=== PATIENT | female | born 1925 | race Hispanic/Latino ===

== ENCOUNTER 2017-03-15 19:59 | Inpatient (IN) | payer MEDICARE, OTHER ==
[2017-03-15 19:59] VITALS: PULSE 1; BMI 29.1
--- NOTE | 2017-03-15 20:16 | C.PDOC ---
History Of Present Illness Patient presents to the emergency room with complaints of shortness of breath for 3 days. Patient also notes bilateral LE edema. Patient is speaking in complete sentences. Patient denies fever, chills, chest pain, nausea, vomiting, or any other complaints. Time Seen by Provider: 03/15/17 20:16 Chief Complaint (Nursing): Shortness Of Breath History Per: Patient History/Exam Limitations: no limitations Onset/Duration Of Symptoms: Days (3) Current Symptoms Are (Timing): Still Present Initiating Event: Other Quality: denies: "Pain" Exacerbating Factor(s): Exertion, Laying Flat Current Respiratory Medications: See Home Med List Severity: Moderate Pain Scale Rating Of: 4 Associated Symptoms: Ankle/Leg Swelling (Bilateral LE edema). denies: Fever, Chills, Chest Pain, Dizziness, Light-headedness Reports Recently: Seen In ED, Treated By A Physician, Hospitalized Recent travel outside of the [place]: No Additional History Per: Family Past Medical History Reviewed: Historical Data, Nursing Documentation, Vital Signs Vital Signs: Last Vital Signs Temp 98.2 F 03/15/17 20:11 Pulse 64 03/15/17 20:11 Resp 22 03/15/17 20:11 BP 142/84 03/15/17 20:11 Pulse Ox 94 L 03/15/17 21:41 - Medical History PMH: Arthritis, Atrial Fibrillation, CAD, Cardia Arrhythmia (afib), CHF, COPD, CVA, Diabetes, HTN, Hypercholesterolemia, Hypothyroidism, Pneumonia, Pulmonary Embolism, Rheumatoid Arthritis Denies: Alzheimer's Disease, Anemia, Anxiety, Asthma, Bipolar Disorder, Bronchitis, Crohn's Disease, Dementia, Depression, Diverticulitis, Emphysema, Fractures, Gastritis, Gall Bladder Disease, HIV, Hyperthyroidism, Kidney Stones , Migraine, Mitral Valve Prolapse, Multiple Sclerosis, Osteoporosis, Pancreatitis, Paranoia, Parkinson's Disease, Peripheral Edema, Post Traumatic Stress Disorder, Chronic Kidney Disease, Schizophrenia, Seizures, Sickle Cell Disease, Sexually Transmitted Disease, Sleep Apnea, TIA Surgical History: Appendectomy, Pacemaker (2015 dr.SHEMA HERRERA) Denies: CABG, Carotid Endarterectomy, Cholecystectomy, Coronary Stent, Tonsillectomy - [facility] Procedures EXERCISE TREATMENT OF MUSCULOSK WHOLE USING ASSIST EQUIPMENT (12/18/16) GAIT TRAINING/AMBULAT TREATMENT USING ASSIST EQUIPMENT (12/18/16) GROOMING/PERSONAL HYGIENE TREATMENT USING ASSIST EQUIPMENT (11/14/16) INSERTION OF INFUSION DEV INTO SUP VENA CAVA, PERC APPROACH (11/14/16) INTRODUCE OF OTH ANTI-INFECT INTO PERIPH VEIN, PERC APPROACH (12/18/16) INTRODUCE OTH ANTI-INFECT IN CENTRAL VEIN, PERC (11/14/16) REPAIR SCALP SKIN, EXTERNAL APPROACH (10/16/15) Family History: States: No Known Family Hx - Social History Hx Tobacco Use: No Hx Alcohol Use: No Hx Substance Use: No - Immunization History Hx Tetanus Toxoid Vaccination: No Hx Influenza Vaccination: No Hx Pneumococcal Vaccination: No Review Of Systems Constitutional: Negative for: Fever, Chills Cardiovascular: Positive for: Edema (Bilateral LE edema). Negative for: Chest Pain, Light Headedness Respiratory: Positive for: Shortness of Breath Gastrointestinal: Negative for: Nausea, Vomiting, Diarrhea Genitourinary: Negative for: Dysuria Musculoskeletal: Negative for: Back Pain Skin: Negative for: Rash, Lesions, Jaundice Neurological: Negative for: Headache, Dizziness Psych: Negative for: Anxiety Physical Exam - Physical Exam Appears: Non-toxic, Other (Speaking in complete sentences) Skin: Warm, Dry, No Rash Head: Normacephalic Oral Mucosa: Moist Neck: Normal ROM, No Midline Cervical Tenderness, No Paracervical Tenderness, Supple Chest: Symmetrical, No Tenderness, Other (Pacemaker on the left side of chest) Cardiovascular: Rhythm Regular Respiratory: Rales (Rales at bases), No Rhonchi, No Wheezing Gastrointestinal/Abdominal: Soft, No Tenderness, No Guarding, No Rebound Back: No CVA Tenderness, No Vertebral Tenderness Extremity: Normal ROM, No Tenderness, Pedal Edema, No Calf Tenderness, No Deformity Neurological/Psych: Oriented x3, Normal Speech, Normal Cognition Gait: With Assistance ED Course And Treatment - Laboratory Results Result Diagrams: 03/15/17 20:59 03/15/17 20:59 ECG: Interpreted By Me, Viewed By Me ECG Rhythm: Sinus Rhythm (67), Nonspecific Changes (dual paced rhytm) O2 Sat by Pulse Oximetry: 94 Pulse Ox Interpretation: Normal - Radiology CXR: Interpreted by Me, Viewed By Me CXR Interpretation: Yes: Cardiomegaly, Other (pacer left, mild vascular congestion, prominent r hilum not much changed from 12/29) Progress Note: cardiac work up Disposition Discussed With : Garry Torres Comment: accepted the pt on his servi ce and took over the care at 9:53 PM Doctor Will See Patient In The: ED Counseled Patient/Family Regarding: Studies Performed, Diagnosis - Disposition Disposition: HOSPITALIZED Disposition Time: 20:16 Condition: FAIR - POA Present On Arrival: Poor Glycemic Control - Clinical Impression Clinical Impression: Chronic congestive heart failure, Dyspnea - Scribe Statement The provider has reviewed the documentation as recorded by the Madyson Sanchez Provider Scribe Attestation: All medical record entries made by the Еленаibe were at my direction and personally dictated by me. I have reviewed the chart and agree that the record accurately reflects my personal performance of the history, physical exam, medical decision making, and the department course for this patient. I have also personally directed, reviewed, and agree with the discharge instructions and disposition. Decision To Admit - Pt Status Changed To: Hospital Disposition Of: Inpatient - Admit Certification Admit to Inpatient:: After my assessment, the patient will require hospitalization for at least two midnights. This is because of the severity of symptoms shown, intensity of services needed, and/or the medical risk in this patient being treated as an outpatient. - InPatient: Physician Admission Certification: I certify that this patient requires 2 or more midnights of care for the following reason:: After my assessment, the patient will require hospitalization for at least two midnights. This is because of the severity of symptoms shown, intensity of services needed, and/or the medical risk in this patient being treated as an outpatient. - . Bed Request Type: Telemetry Admitting Physician: Garry Torres Patient Diagnosis: Chronic congestive heart failure, Dyspnea
[2017-03-15 21:10] LABS: VENOUS BLOOD GAS BASE EXCESS 3.8 mmol/L (0.0-2.0); VENOUS BLOOD GAS PCO2 56 mmHg (40-60); VENOUS BLOOD PH 7.35 (7.32-7.43)
[2017-03-15 21:12] LABS: CHLORIDE 100 mmol/L (98-107); SODIUM 138 mmol/L (132-148)
[2017-03-15 21:13] LABS: POTASSIUM 4.2 mmol/L (3.6-5.2)
[2017-03-15 21:14] LABS: BASO % 0.4 % (0.0-2.0); BILIRUBIN,TOTAL 0.9 mg/dL (0.2-1.3); EOS # 0.1 K/uL (0.0-0.7); EOS % 1.3 % (0.0-4.0); GFR AFRICAN-AMERICAN > 60; HEMATOCRIT 35.4 % (34.0-47.0); LYMPH # 0.7 K/uL (1.0-4.3); LYMPH % 10.1 % (20.0-40.0); MEAN CELL VOLUME 91.3 fL (81.0-99.0); MEAN CORPUSCULAR HEMOGLOBIN 29.5 pg (27.0-31.0); MEAN CORPUSCULAR HGB CONC 32.3 g/dL (33.0-37.0); MEAN PLATELET VOLUME 8.5 fL (7.2-11.7); MONO # 0.4 K/uL (0.0-0.8); MONO % 6.1 % (0.0-10.0); NRBC % 0.1 % (0.0-2.0); RED CELL DISTRIBUTION WIDTH 15.2 % (11.5-14.5)
[2017-03-15 21:15] LABS: ALB/GLOB RATIO 1.4 (1.0-2.1); ALKALINE PHOSPHATASE 77 U/L (38-126); ALT/SGPT 28 U/L (9-52); AST/SGOT 29 U/L (14-36); BLOOD UREA NITROGEN 15 mg/dL (7-17); CALCIUM 8.8 mg/dl (8.6-10.4); CARBON DIOXIDE 29 mmol/L (22-30); GLUCOSE,RANDOM 133 mg/dL (65-105); MAGNESIUM 1.8 mg/dL (1.6-2.3)
[2017-03-15 22:37] LABS: RBC URINE 5 /hpf (0-3); URINE BACTERIA FEW (<OCC); URINE BILIRUBIN NEGATIVE (NEGATIVE); URINE BLOOD 1+ (NEGATIVE); URINE COLOR Yellow (YELLOW); URINE GLUCOSE (UA) NORMAL (Normal); URINE KETONE NEGATIVE (NEGATIVE); URINE PROTEIN NEGATIVE (NEGATIVE); URINE UROBILINOGEN NORMAL mg/dL (0.2-1.0); WBC URINE 26 /hpf (0-5)
--- NOTE | 2017-03-15 22:53 | CP.PCM.HP ---
<PasqualeRoman - Last Filed: 03/16/17 09:55> History of Present Illness - History of Present Illness History of Present Illness: CC: Productive Cough + Shortness of breath x 5 days. HPI: 89 year old female with extensive PMHx including recent Pneumonia, DM, CHF , and CVA - presents c/o productive cough and shortness of breath for the last 5 days. Patient admits she was admitted to for pneumonia last month and was later transferred to [facility] on vanco/ azactum. She feels like she has pneumonia again. She admits to increased SOB while lying flat and sleeps with an adjustable bed, typically maintaining a 30-45 degree angle while sleeping. She admits she takes a "water pill," but does not take it consistently, typically every other day because it causes frequent urination. Admits to chills , productive cough, lower extremity swelling, and chronically low appetite. Denies f/c, diaphoresis, chest pain, abdominal pain, n/v, d/c, or any additional complaints. Previously seen in 10/2016 and 12/2016 for similar complaints. Patient also spent time in ICU in 10/2016 for atrial flutter with long pauses on tele monitor with EKG changes. Dr. Chowdhury recommended evaluation by Dr. Roberson , electrophysiology, and patient received a pacemaker. PMHx: Pneumonia, DM, CVA, h/o PE, CAD, arthritis, hypercholesterolemia, hypothyroidism, RA, CHF Surgical Hx: cataract surgery, , pacemaker (10/2016) Meds- Metformin 500mg PO daily , Imdur, Nateglinide, Synthroid 100mcg PO daily, Plavix 75mg daily, Crestor 10mg HS, Metoprolol succ ER 50mg PO daily Allergies: Penicillin ("sometimes") Social Hx: Denies drugs, tobacco, and alcohol PMD: Dr. Peck Daughter: Alexus can be reached at [phone]. Present on Admission - Present on Admission Any Indicators Present on Admission: No Review of Systems - Hematologic/Lymphatic Additional comments: - Constitutional Constitutional: Chills. absent: Fever, Night Sweats, Weight Loss - EENT Eyes: absent: Change in Vision Ears: absent: Decreased Hearing - Cardiovascular Cardiovascular: absent: Chest Pain, Diaphoresis - Respiratory Respiratory: Cough, Chest Congestion. absent: Hemoptysis - Gastrointestinal Gastrointestinal: absent: Nausea, Vomiting - Genitourinary Genitourinary: absent: Hematuria - Musculoskeletal Musculoskeletal: absent: Joint Swelling -Lower extremity swelling (chronic). - Integumentary Integumentary: absent: Rash, Skin Ulcer - Neurological Neurological: absent: Dizziness, Focal Weakness - Psychiatric Psychiatric: absent: Confusion, Memory Loss - Endocrine Endocrine: absent: Change in Body Appearance - Hematologic/Lymphatic Hematologic: absent: Easy Bruising Past Patient History - Infectious Disease Hx of Infectious Diseases: None - Past Medical History & Family History Past Medical History?: Yes - Past Social History Smoking Status: Never Smoked - CARDIAC Hx Atrial Fibrillation: Yes Hx Cardia Arrhythmia: Yes (afib) Hx Congestive Heart Failure: Yes Hx Hypercholesterolemia: Yes Hx Hypertension: Yes Hx Mitral Valve Prolapse: No Hx Pacemaker: Yes (2015 dr.SHEMA HERRERA) Hx Peripheral Edema: No - PULMONARY Hx Asthma: No Hx Bronchitis: No Hx Chronic Obstructive Pulmonary Disease (COPD): Yes Hx Emphysema: No Hx Pneumonia: Yes Hx Pulmonary Embolism: Yes Hx Sleep Apnea: No - NEUROLOGICAL Hx Alzheimer's Disease: No Hx Dementia: No Hx Migraine: No Hx Multiple Sclerosis: No Hx Parkinson's Disease: No Hx Seizures: No Hx Transient Ischemic Attacks (TIA): No - HEENT Hx HEENT Problems: Yes Hx Blind: No Hx Cataracts: No Hx Deafness: No Hx Difficulty Chewing: No Hx Epistaxis: No Hx Glaucoma: Yes Hx Macular Degeneration: No Other/Comment: SURGERY GLAUCOMA BOTH EYES - RENAL Hx Chronic Kidney Disease: No Hx Kidney Stones: No - ENDOCRINE/METABOLIC Hx Hyperthyroidism: No Hx Hypothyroidism: Yes - HEMATOLOGICAL/ONCOLOGICAL Hx Anemia: No Hx Human Immunodeficiency Virus (HIV): No Hx Sickle Cell Disease: No - INTEGUMENTARY Hx Dermatological Problems: No Hx Basil Cell: No Hx Gao: No Hx Cellulitis: No Hx Eczema: No Hx Melanoma: No Hx Psoriasis: No Hx Squamous Cell: No - MUSCULOSKELETAL/RHEUMATOLOGICAL Hx Arthritis: Yes Hx Fractures: No Hx Osteoporosis: No Hx Rheumatoid Arthritis: Yes - GASTROINTESTINAL Hx Crohn's Disease: No Hx Diverticulitis: No Hx Gall Bladder Disease: No Hx Gastritis: No Hx Pancreatitis: No - GENITOURINARY/GYNECOLOGICAL Hx Sexually Transmitted Disorders: No - PSYCHIATRIC Hx Anxiety: No Hx Bipolar Disorder: No Hx Depression: No Hx Paranoia: No Hx Post Traumatic Stress Disorder: No Hx Schizophrenia: No Hx Substance Use: No - SURGICAL HISTORY Hx Appendectomy: Yes Hx Carotid Endarterectomy: No Hx Cholecystectomy: No Hx Coronary Artery Bypass Graft: No Hx Coronary Stent: No Hx Tonsillectomy: No - ANESTHESIA Hx Anesthesia: Yes Hx Anesthesia Reactions: No Hx Malignant Hyperthermia: No Meds Allergies/Adverse Reactions: Allergies Allergy/AdvReac Type Severity Reaction Status Date / Time Penicillins Allergy RASH Verified 03/19/17 18:50 Physical Exam - Additional Findings Additional findings: - Constitutional Appears: Non-toxic - Head Exam Head Exam: ATRAUMATIC, NORMOCEPHALIC - Eye Exam Eye Exam: EOMI, Normal appearance. absent: Scleral icterus - ENT Exam ENT Exam: Mucous Membranes Moist - Neck Exam Neck exam: Negative for: Lymphadenopathy, Tenderness - Respiratory Exam Respiratory Exam: Rhonchi (b/l diffuse). absent: Respiratory Distress - Cardiovascular Exam Cardiovascular Exam: Irregular Rhythm, +S1, +S2 - GI/Abdominal Exam GI & Abdominal Exam: Soft. absent: Tenderness - Extremities Exam Extremities exam: Positive for: pedal edema (2+ pitting). Negative for: calf tenderness - Back Exam Back exam: absent: CVA tenderness (L), CVA tenderness (R) - Neurological Exam Neurological exam: Alert, CN II-XII Intact, Oriented x3 - Psychiatric Exam Psychiatric exam: Normal Affect, Normal Mood. Results - Vital Signs Recent Vital Signs: Last Vital Signs Temp 98.2 F 03/15/17 22:45 Pulse 68 03/15/17 22:45 Resp 20 03/15/17 22:45 BP 132/66 03/15/17 22:45 Pulse Ox 96 03/15/17 22:45 - Labs Result Diagrams: 03/16/17 06:20 03/16/17 06:20 Assessment & Plan - Assessment and Plan (Free Text) Assessment: Pneumonia -suspected -recently had pneumonia 1 month ago, she does not feel as if it completely resolved. -CXR: Cardiomegaly, Other (pacer left, mild vascular congestion, prominent r hilum not much changed from 12/29). See full report. -Avelox 400mg IVPB Q24H DIMA -Mucinex 600 mg PO BID DIMA for cough. -Albuterol 1.25 mg INH QID DIMA -Budesonide 0.5 mg INH RQ12 DIMA -Singulair 10 mg PO HS DIMA Shortness of Breath -O2 NC 2L PRN -O2 sat 94% on admission. -Ddimer 541 --> f/u CT Angio to r/o PE. -ROSALINDA negative x2. f/u 3rd ROSALINDA -EKG: AV dual paced rhythm with prolonged AV and PACs. f/u repeat EKG. Atrial Fibrillation -s/p pacemaker with Dr. Roberson' team. -EKG: AV dual paced rhythm with prolonged AV and PACs. f/u repeat EKG. -Amiodarone HCl 200 mg PO DAILY DIMA CHF -diffuse rhonchi on exam. Feels extremely SOB when lies flat. -prior echo: Echo mild to moderate left ventricular hypertrophy, systolic function is normal EF 70%, Grade II pseudonormal filling dynamica, trace aortic regurg, mid MR, mild-moderate pulmonary hypertension -Lasix 40mg IVP qd Diabetes -Glucose 133 on admission -Novolog ISS - low dose (to start at noon) -Metformin HCl 500 mg PO BID DIMA -Nateglinide (Starlix) 60 mg PO ACTID DIMA Hx Hyperlipidemia -Crestor 10 mg PO HS DIMA Hx HTN -BP 132/66 on admission -Bisoprolol Fumarate (Zebeta) 2.5 mg PO DAILY DIMA -Hydralazine HCl (Apresoline) 25 mg PO DAILY DIMA Hx CVA -Plavix 75 mg PO DAILY DIMA Hypothyroidism -Synthroid 100 mcg PO DAILY@0630 DIMA Prophylaxis -Heparin 5,000 units SC Q12 DIMA -Pneumovax [address] Torres. - Date & Time Date: 03/15/17 Time: 23:00 <Garry Torres P - Last Filed: 03/20/17 05:50> Results - Vital Signs Recent Vital Signs: Last Vital Signs Temp 99.1 F 03/19/17 15:31 Pulse 65 03/19/17 15:31 Resp 20 03/19/17 15:31 BP 111/62 03/19/17 17:04 Pulse Ox 95 03/19/17 15:31 - Labs Result Diagrams: 03/19/17 06:20 03/19/17 06:20 Labs: Laboratory Results - last 24 hr 03/19/17 03/19/17 03/19/17 06:13 06:20 06:20 WBC 3.5 L RBC 3.92 Hgb 11.7 Hct 35.5 MCV 90.6 MCH 29.8 MCHC 32.9 L RDW 15.2 H Plt Count 201 MPV 8.5 Neut % (Auto) 41.8 L Lymph % (Auto) 39.6 [place] % (Auto) 12.6 H Eos % (Auto) 5.1 H Baso % (Auto) 0.9 Neut # 1.5 L Lymph # 1.4 [place] # 0.4 Eos # 0.2 Baso # 0.0 Sodium 138 Potassium 3.7 Chloride 95 L Carbon Dioxide 33 H Anion Gap 14 BUN 20 H Creatinine 1.1 Est GFR ( Amer) 57 Est GFR (Non-Af Amer) 47 POC Glucose (mg/dL) 126 H Random Glucose 117 H Calcium 8.5 L Phosphorus 4.5 Magnesium 1.8 Total Bilirubin 0.4 AST 26 ALT 31 Alkaline Phosphatase 68 Troponin I NT-Pro-B Natriuret Pep Total Protein 7.0 Albumin 4.0 Globulin 3.0 Albumin/Globulin Ratio 1.3 03/19/17 03/19/17 03/19/17 11:30 11:38 16:21 WBC RBC Hgb Hct MCV MCH MCHC RDW Plt Count MPV Neut % (Auto) Lymph % (Auto) [place] % (Auto) Eos % (Auto) Baso % (Auto) Neut # Lymph # [place] # Eos # Baso # Sodium Potassium Chloride Carbon Dioxide Anion Gap BUN Creatinine Est GFR ( Amer) Est GFR (Non-Af Amer) POC Glucose (mg/dL) 164 H 151 H Random Glucose Calcium Phosphorus Magnesium Total Bilirubin AST ALT Alkaline Phosphatase Troponin I < 0.0120 NT-Pro-B Natriuret Pep 140 Total Protein Albumin Globulin Albumin/Globulin Ratio Attending/Attestation - Attestation I have personally seen and examined this patient.: Yes I have fully participated in the care of the patient.: Yes I have reviewed all pertinent clinical information: Yes
[2017-03-15 23:10] LABS: URINE LEUKOCYTE ESTERASE 2+ Leu/uL (Negative)
[2017-03-16] MEDS: Albuterol 0.042% Inhal Sol (1.25 mg/3 mL) UD INH SCH ×3 (03:35→19:24)
[2017-03-16] MEDS: Levothyroxine 100 MCG TAB PO SCH (06:15)
[2017-03-16 06:28] LABS: BASO # 0.1 K/uL (0.0-0.2); BASO % 0.7 % (0.0-2.0); EOS # 0.1 K/uL (0.0-0.7); EOS % 0.7 % (0.0-4.0); HEMATOCRIT 36.7 % (34.0-47.0); LYMPH # 0.8 K/uL (1.0-4.3); LYMPH % 10.5 % (20.0-40.0); MEAN CELL VOLUME 90.6 fL (81.0-99.0); MEAN CORPUSCULAR HEMOGLOBIN 29.9 pg (27.0-31.0); MEAN PLATELET VOLUME 8.3 fL (7.2-11.7); MONO # 0.5 K/uL (0.0-0.8); MONO % 6.2 % (0.0-10.0); RED CELL DISTRIBUTION WIDTH 15.3 % (11.5-14.5); WHITE BLOOD COUNT 7.8 K/uL (4.8-10.8)
[2017-03-16 06:38] LABS: CHLORIDE 92 mmol/L (98-107); SODIUM 139 mmol/L (132-148)
[2017-03-16 06:39] LABS: POTASSIUM 3.3 mmol/L (3.6-5.2)
[2017-03-16 06:40] LABS: GFR AFRICAN-AMERICAN > 60
[2017-03-16 06:41] LABS: ALB/GLOB RATIO 1.4 (1.0-2.1); ALKALINE PHOSPHATASE 89 U/L (38-126); ALT/SGPT 29 U/L (9-52); AST/SGOT 30 U/L (14-36); BILIRUBIN,TOTAL 1.2 mg/dL (0.2-1.3); BLOOD UREA NITROGEN 13 mg/dL (7-17); CALCIUM 8.6 mg/dl (8.6-10.4); CARBON DIOXIDE 34 mmol/L (22-30); GLUCOSE,RANDOM 141 mg/dL (65-105); MAGNESIUM 1.6 mg/dL (1.6-2.3); PHOSPHOROUS 3.7 mg/dL (2.5-4.5); TOTAL PROTEIN 7.5 g/dL (6.3-8.3)
[2017-03-16] MEDS: Budesonide 0.5 mg/2 ml Inhal Susp UD INH SCH ×2 (07:26→19:24)
[2017-03-16] MEDS ORDERED: Iodixanol 320 MG/ML 100 ML BOTTLE IV ONE (07:44)
--- NOTE | 2017-03-16 08:48 | RAD ---
PROCEDURE: CHEST RADIOGRAPH, 1 VIEW HISTORY: SOB COMPARISON: Comparison is made to the previous study dated 12/13/2016 FINDINGS: LUNGS: Mild pulmonary vascular congestion. PLEURA: Blunting of the right costophrenic angle CARDIOVASCULAR: Cardiomegaly is again noted. Left-sided pacemaker is seen in place. OSSEOUS STRUCTURES: No significant abnormalities. VISUALIZED UPPER ABDOMEN: Normal. OTHER FINDINGS: None. IMPRESSION: Cardiomegaly and mild pulmonary vascular congestion.
--- NOTE | 2017-03-16 09:18 | CT ---
PROCEDURE: CT Chest with contrast (Pulmonary Angiogram) HISTORY: +DDimer, SOB COMPARISON: Comparison is made to the previous study dated 10/29/2016 TECHNIQUE: Axial computed tomography images were obtained of the chest in the pulmonary arterial phase of enhancement. Coronal and sagittal reformatted images were created and reviewed. Intravenous contrast dose: 100 mL of Visipaque Radiation dose: Total exam DLP = 435.5 mGy-cm. This CT exam was performed using one or more of the following dose reduction techniques: Automated exposure control, adjustment of the mA and/or kV according to patient size, and/or use of iterative reconstruction technique. FINDINGS: PULMONARY ARTERIES: Unremarkable. No pulmonary embolism. AORTA: No acute findings. No thoracic aortic aneurysm. LUNGS: Small opacity is seen at the lingula may represent pneumonia or atelectasis. There is also small opacity seen at the left lung base. Mild emphysematous changes are also noted. PLEURAL SPACES: Unremarkable. No effusion or pneuomothorax. HEART: The heart is moderately enlarged. LYMPH NODES: No lymphadenopathy. BONES, CHEST WALL: Unremarkable. No fracture or destructive lesion OTHER FINDINGS: Gallstones are seen without evidence of acute cholecystitis. IMPRESSION: No evidence of pulmonary embolus. Airspace consolidation and small infiltrates seen at the lingula may represent a pneumonia or atelectasis. The possibility of neoplasm is less likely. Focal opacity at the left lung base likely atelectasis. Cardiomegaly. Mild emphysema and pulmonary vascular congestion.
[2017-03-16] MEDS: guaiFENesin 600 mg ER Tab PO SCH ×2 (09:24→17:26)
[2017-03-16] MEDS: Moxifloxacin IV 400mg/250ml NS 400 MG/250 ML BAG IVPB SCH (09:31)
[2017-03-16] MEDS ORDERED: Potassium Chloride 20 mEq ER Tab PO ONE (10:02)
[2017-03-16] MEDS: (Novolog) Insulin Aspart, Recombinant 100 u/ml 10 ml vial SC SCH ×3 (12:09→22:14)
--- NOTE | 2017-03-16 17:07 | CARD ---
APPROVED REPORT EKG Measurement Heart [id number] ND 214P [id number] <Conclusion> AV dual-paced rhythm with prolonged AV conduction with premature atrial complexes with aberrant conduction Abnormal ECG
--- NOTE | 2017-03-16 18:21 | CP.PCM.PN ---
<Negro Reid - Last Filed: 03/16/17 18:17> Subjective - Date & Time of Evaluation Date of Evaluation: 03/16/17 Time of Evaluation: 18:17 - Subjective Subjective: PGY-1 Medicine Progress Note for Dr. Henriquez Patient seen and examined at bedside. No acute event overnight. Patient resting in bed comfortably. Patient still complaining of sob and cough. She states that the sputum is green in color. Patient still has decreased appetite. Patient was recently treated for Pneumnia and was discharged to [facility] for IV antibiotic therapy. Denies fever/chills, palpitations, abd pain, n/v/d. Objective - Vital Signs/Intake and Output Vital Signs (last 24 hours): Temp Pulse Resp BP Pulse Ox 99.5 F 70 20 120/59 L 96 03/16/17 17:24 03/16/17 15:45 03/16/17 15:45 03/16/17 17:27 03/16/17 15:45 Intake and Output: 03/16/17 03/16/17 06:59 18:59 Intake Total 850 Balance 850 - Medications Medications: Current Medications Albuterol Sulfate (Albuterol 0.042% Inhal Lidia (1.25mg/3ml) Ud) 1.25 mg INH RQID [facility] Amiodarone HCl (Cordarone) 200 mg PO DAILY [facility] Last Admin: 03/16/17 09:24 Dose: 200 mg Bisoprolol Fumarate (Zebeta) 2.5 mg PO DAILY [facility] Last Admin: 03/16/17 10:55 Dose: 2.5 mg Budesonide (Pulmicort Respules) 0.5 mg INH RQ12 [facility] Last Admin: 03/16/17 07:26 Dose: Not Given Clopidogrel Bisulfate (Plavix) 75 mg PO DAILY [facility] Last Admin: 03/16/17 09:24 Dose: 75 mg Furosemide (Lasix) 40 mg IVP BID [facility] Last Admin: 03/16/17 17:27 Dose: 40 mg Guaifenesin (Mucinex La) 600 mg PO BID [facility] Last Admin: 03/16/17 17:26 Dose: 600 mg Heparin Sodium (Porcine) (Heparin) 5,000 units SC Q12 [facility] Last Admin: 03/16/17 09:23 Dose: 5,000 units Hydralazine HCl (Apresoline) 25 mg PO DAILY [facility] Last Admin: 03/16/17 09:24 Dose: 25 mg Moxifloxacin HCl (Avelox Iv 400mg/250ml Ns) 400 mg in 250 mls @ 167 mls/hr IVPB Q24H [facility] Last Admin: 03/16/17 09:31 Dose: 167 mls/hr Insulin Aspart (Novolog) 0 unit SC ACHS [facility] PRN Reason: Protocol Last Admin: 03/16/17 17:25 Dose: 1 unit Levothyroxine Sodium (Synthroid) 100 mcg PO DAILY@0630 [facility] Last Admin: 03/16/17 06:15 Dose: 100 mcg Metformin HCl (Glucophage) 500 mg PO BID [facility] Last Admin: 03/16/17 17:26 Dose: Not Given Montelukast Sodium (Singulair) [address] [facility] Nateglinide (Starlix) 60 mg PO ACTID [facility] Last Admin: 03/16/17 17:26 Dose: 60 mg Pneumococcal Polyvalent Vaccine (Pneumovax 23 Vaccine) 0.5 ml IM .ONCE ONE Stop: 03/19/17 10:01 Rosuvastatin Calcium (Crestor) [address] [facility] - Labs Labs: 03/16/17 06:20 03/16/17 06:20 PT 10.7 SECONDS (9.7-12.2) 03/15/17 20:59 INR 1.0 03/15/17 20:59 APTT 27 SECONDS (21-34) 03/16/17 05:07 - Constitutional Appears: No Acute Distress - Head Exam Head Exam: ATRAUMATIC, NORMOCEPHALIC - Eye Exam Eye Exam: EOMI, Normal appearance Pupil Exam: PERRL - ENT Exam ENT Exam: Mucous Membranes Moist - Neck Exam Neck Exam: Normal Inspection - Respiratory Exam Respiratory Exam: Decreased Breath Sounds, Rhonchi, Wheezes, NORMAL BREATHING PATTERN. absent: Accessory Muscle Use, Respiratory Distress - Cardiovascular Exam Cardiovascular Exam: REGULAR RHYTHM, +S1, +S2 - GI/Abdominal Exam GI & Abdominal Exam: Distended, Soft, Normal Bowel Sounds. absent: Firm, Guarding, Tenderness, Rebound - Extremities Exam Extremities Exam: Normal Capillary Refill, Pedal Edema - Back Exam Back Exam: absent: CVA tenderness (L), CVA tenderness (R) - Neurological Exam Neurological Exam: Alert, Awake, CN II-XII Intact, Oriented x3 - Psychiatric Exam Psychiatric exam: Flat Affect - Skin Skin Exam: Dry, Intact, Warm Assessment and Plan - Assessment and Plan (Free Text) Plan: Pneumonia suspected CXR in AM recently had pneumonia 1 month ago, she does not feel as if it completely resolved. CXR: Cardiomegaly, Other (pacer left, mild vascular congestion, prominent r hilum not much changed from 12/29). See full report. Avelox 400mg IVPB Q24H [facility] Mucinex 600 mg PO BID [facility] for cough. Albuterol 1.25 mg INH QID [facility] Budesonide 0.5 mg INH RQ12 [facility] Singulair 10 mg PO HS [facility] Pulmonology consult, Dr. Black, help appreciated Shortness of Breath O2 NC 2L PRN CXR in AM [facility] 541 CT Angio: No evidence of PE ROSALINDA negative x 3 EKG: AV dual paced rhythm with prolonged AV and PACs. f/u repeat EKG. P Cardio consult, Dr. Roberson, help appreciated Cardio consult, Dr. Chowdhury, help appreciated Pulmonology consult, Dr. Black, help appreciated Atrial Fibrillation s/p pacemaker with Dr. Roberson EKG: AV dual paced rhythm with prolonged AV and PACs. f/u repeat EKG. Amiodarone HCl 200 mg PO DAILY [facility] EP Cardio consult, Dr. Roberson, help appreciated Cardio consult, Dr. Chowdhury, help appreciated CHF diffuse rhonchi on exam. Feels extremely SOB when lies flat. prior echo: Echo mild to moderate left ventricular hypertrophy, systolic function is normal EF 70%, Grade II pseudonormal filling dynamica, trace aortic regurg, mid MR, mild-moderate pulmonary hypertension Lasix 40mg IVP BID EP Cardio consult, Dr. Roberson, help appreciated Cardio consult, Dr. Chowdhury, help appreciated Diabetes Novolog ISS - low dose Metformin HCl 500 mg PO BID [facility] Nateglinide (Starlix) 60 mg PO ACTID [facility] Hyperlipidemia Crestor 10 mg PO HS [facility] HTN Bisoprolol Fumarate (Zebeta) 2.5 mg PO DAILY [facility] Hydralazine HCl (Apresoline) 25 mg PO DAILY [facility] Hx CVA Plavix 75 mg PO DAILY [facility] Hypothyroidism Synthroid 100 mcg PO DAILY@0630 [facility] Prophylaxis Heparin 5,000 units SC Q12 [facility] Pneumovax 23 <Henriquez,Peter H - Last Filed: 03/17/17 08:48> Objective - Vital Signs/Intake and Output Vital Signs (last 24 hours): Temp Pulse Resp BP Pulse Ox 98.4 F 72 18 111/65 94 L 03/17/17 07:02 03/17/17 07:02 03/17/17 07:02 03/17/17 07:02 03/17/17 07:02 Intake and Output: 03/17/17 03/17/17 06:59 18:59 Intake Total 430 Balance 430 - Medications Medications: Current Medications Albuterol Sulfate (Albuterol 0.042% Inhal Lidia (1.25mg/3ml) Ud) 1.25 mg INH RQID [facility] Last Admin: 03/16/17 19:24 Dose: 1.25 mg Amiodarone HCl (Cordarone) 200 mg PO DAILY [facility] Last Admin: 03/16/17 09:24 Dose: 200 mg Bisoprolol Fumarate (Zebeta) 2.5 mg PO DAILY [facility] Last Admin: 03/16/17 10:55 Dose: 2.5 mg Budesonide (Pulmicort Respules) 0.5 mg INH RQ12 [facility] Last Admin: 03/16/17 19:24 Dose: 0.5 mg Clopidogrel Bisulfate (Plavix) 75 mg PO DAILY [facility] Last Admin: 03/16/17 09:24 Dose: 75 mg Furosemide (Lasix) 40 mg IVP BID [facility] Last Admin: 03/16/17 17:27 Dose: 40 mg Guaifenesin (Mucinex La) 600 mg PO BID [facility] Last Admin: 03/16/17 17:26 Dose: 600 mg Heparin Sodium (Porcine) (Heparin) 5,000 units SC Q12 [facility] Last Admin: 03/16/17 22:14 Dose: Not Given Hydralazine HCl (Apresoline) 25 mg PO DAILY [facility] Last Admin: 03/16/17 09:24 Dose: 25 mg Moxifloxacin HCl (Avelox Iv 400mg/250ml Ns) 400 mg in 250 mls @ 167 mls/hr IVPB Q24H [facility] Last Admin: 03/16/17 09:31 Dose: 167 mls/hr Insulin Aspart (Novolog) 0 unit SC ACHS [facility] PRN Reason: Protocol Last Admin: 03/17/17 08:19 Dose: Not Given Levothyroxine Sodium (Synthroid) 100 mcg PO DAILY@0630 [facility] Last Admin: 03/17/17 05:41 Dose: 100 mcg Metformin HCl (Glucophage) 500 mg PO BID [facility] Last Admin: 03/16/17 17:26 Dose: Not Given Montelukast Sodium (Singulair) [address] [facility] Last Admin: 03/16/17 22:14 Dose: Not Given Nateglinide (Starlix) 60 mg PO ACTID [facility] Last Admin: 03/16/17 17:26 Dose: 60 mg Pneumococcal Polyvalent Vaccine (Pneumovax 23 Vaccine) 0.5 ml IM .ONCE ONE Stop: 03/19/17 10:01 Rosuvastatin Calcium (Crestor) [address] [facility] Last Admin: 03/16/17 22:14 Dose: Not Given - Labs Labs: 03/17/17 06:27 03/17/17 06:27 PT 10.7 SECONDS (9.7-12.2) 03/15/17 20:59 INR 1.0 03/15/17 20:59 APTT 27 SECONDS (21-34) 03/16/17 05:07 Attending/Attestation - Attestation I have personally seen and examined this patient.: Yes I have fully participated in the care of the patient.: Yes I have reviewed all pertinent clinical information, including history, physical exam and plan: Yes Notes (Text): 03/17/17 08:41 Medical Attending: Patient was seen and examined by me. Agree with the above note by the resident This is a patient whom PMD is currently away and we are covering for. The patient reports she still feels short of breath. There is a history of CHF as well as recent admission due to pneumonia. The patient on the chest imaging did appear to be having some pulmonary congestion, and she also had elevated BNP as well. She has difficulty when trying to lie flat on her back. Also because of the recent pneumonia she explains to us that she was recently at a subacute rehabilitation/TCU was not doing well there area she's been mostly bedbound. And feeling weak and tired area so we can continue with Avelox at this time. There is also a history of atrial fibrillation as well, and the patient will need a cardiology evaluation. She is currently on amiodarone. We will also continue her breathing medications including Pulmicort nebulizers. Thank you very much, Roman Henriquez
[2017-03-17] MEDS: Levothyroxine 100 MCG TAB PO SCH (05:41)
[2017-03-17 06:55] LABS: POTASSIUM 3.3 mmol/L (3.6-5.2)
[2017-03-17 06:57] LABS: ALB/GLOB RATIO 1.3 (1.0-2.1); BILIRUBIN,TOTAL 0.9 mg/dL (0.2-1.3); CALCIUM 8.2 mg/dl (8.6-10.4); PHOSPHOROUS 3.6 mg/dL (2.5-4.5); TOTAL PROTEIN 6.8 g/dL (6.3-8.3)
[2017-03-17 06:58] LABS: MAGNESIUM 1.8 mg/dL (1.6-2.3)
[2017-03-17 07:01] LABS: BASO % 0.3 % (0.0-2.0); EOS # 0.1 K/uL (0.0-0.7); EOS % 2.4 % (0.0-4.0); LYMPH # 0.8 K/uL (1.0-4.3); LYMPH % 15.2 % (20.0-40.0); MEAN CELL VOLUME 91.4 fL (81.0-99.0); MEAN CORPUSCULAR HEMOGLOBIN 29.6 pg (27.0-31.0); MEAN CORPUSCULAR HGB CONC 32.4 g/dL (33.0-37.0); MEAN PLATELET VOLUME 8.5 fL (7.2-11.7); MONO # 0.7 K/uL (0.0-0.8); MONO % 13.4 % (0.0-10.0); NRBC % 0.1 % (0.0-2.0); RED CELL DISTRIBUTION WIDTH 15.2 % (11.5-14.5); WHITE BLOOD COUNT 5.1 K/uL (4.8-10.8)
--- NOTE | 2017-03-17 07:46 | CP.PCM.CON ---
<Bee Roberson - Last Filed: 03/17/17 07:45> Past Patient History - Infectious Disease Hx of Infectious Diseases: None - Past Medical History & Family History Past Medical History?: Yes - Past Social History Smoking Status: Never Smoked - CARDIAC Hx Cardiac Disorders: Yes (A FIBRILLATION) Hx Congestive Heart Failure: Yes Hx Hypercholesterolemia: Yes - PULMONARY Hx Chronic Obstructive Pulmonary Disease (COPD): Yes - NEUROLOGICAL Hx Alzheimer's Disease: No Hx Dementia: No Hx Migraine: No Hx Multiple Sclerosis: No Hx Parkinson's Disease: No Hx Seizures: No Hx Transient Ischemic Attacks (TIA): No - HEENT Hx HEENT Problems: Yes Hx Blind: No Hx Cataracts: No Hx Deafness: No Hx Difficulty Chewing: No Hx Epistaxis: No Hx Glaucoma: Yes Hx Macular Degeneration: No Other/Comment: SURGERY GLAUCOMA BOTH EYES - RENAL Hx Chronic Kidney Disease: No Hx Kidney Stones: No - ENDOCRINE/METABOLIC Hx Hypothyroidism: Yes - HEMATOLOGICAL/ONCOLOGICAL Hx Anemia: No Hx Human Immunodeficiency Virus (HIV): No Hx Sickle Cell Disease: No - INTEGUMENTARY Hx Dermatological Problems: No Hx Basil Cell: No Hx Gao: No Hx Cellulitis: No Hx Eczema: No Hx Melanoma: No Hx Psoriasis: No Hx Squamous Cell: No - MUSCULOSKELETAL/RHEUMATOLOGICAL Hx Rheumatoid Arthritis: Yes - GASTROINTESTINAL Hx Crohn's Disease: No Hx Diverticulitis: No Hx Gall Bladder Disease: No Hx Gastritis: No Hx Pancreatitis: No - GENITOURINARY/GYNECOLOGICAL Hx Sexually Transmitted Disorders: No - PSYCHIATRIC Hx Anxiety: No Hx Bipolar Disorder: No Hx Depression: No Hx Paranoia: No Hx Post Traumatic Stress Disorder: No Hx Schizophrenia: No Hx Substance Use: No - SURGICAL HISTORY Hx Appendectomy: Yes Hx Carotid Endarterectomy: No Hx Cholecystectomy: No Hx Coronary Artery Bypass Graft: No Hx Coronary Stent: No Hx Tonsillectomy: No - ANESTHESIA Hx Anesthesia: Yes Hx Anesthesia Reactions: No Hx Malignant Hyperthermia: No Meds Home Medications: Home Medication List Medication Instructions Recorded Confirmed Type Albuterol 0.042% [Albuterol 0.042% 1.25 mg INH RQID 03/19/17 Rx Inhal Lidia (1.25mg/3ml) UD] Clopidogrel [Plavix] 75 mg PO DAILY tab 03/19/17 Rx Insulin Aspart, Recombinant 0 unit SC ACHS unit 03/19/17 Rx [Novolog] Moxifloxacin [Avelox] 400 mg PO DAILY #5 tab 03/19/17 Rx Potassium Chloride [K-Dur 20 mEq 20 meq PO DAILY tab 03/19/17 Rx ER Tab] Rosuvastatin Calcium [Crestor] 10 mg PO HS tab 03/19/17 Rx Allergies/Adverse Reactions: Allergies Allergy/AdvReac Type Severity Reaction Status Date / Time Penicillins Allergy RASH Verified 11/14/16 21:58 - Medications Medications: Current Medications Albuterol Sulfate (Albuterol 0.042% Inhal Lidia (1.25mg/3ml) Ud) 1.25 mg INH RQID [facility] Last Admin: 03/16/17 19:24 Dose: 1.25 mg Amiodarone HCl (Cordarone) 200 mg PO DAILY [facility] Last Admin: 03/16/17 09:24 Dose: 200 mg Bisoprolol Fumarate (Zebeta) 2.5 mg PO DAILY [facility] Last Admin: 03/16/17 10:55 Dose: 2.5 mg Budesonide (Pulmicort Respules) 0.5 mg INH RQ12 [facility] Last Admin: 03/16/17 19:24 Dose: 0.5 mg Clopidogrel Bisulfate (Plavix) 75 mg PO DAILY [facility] Last Admin: 03/16/17 09:24 Dose: 75 mg Furosemide (Lasix) 40 mg IVP BID [facility] Last Admin: 03/16/17 17:27 Dose: 40 mg Guaifenesin (Mucinex La) 600 mg PO BID [facility] Last Admin: 03/16/17 17:26 Dose: 600 mg Heparin Sodium (Porcine) (Heparin) 5,000 units SC Q12 [facility] Last Admin: 03/16/17 22:14 Dose: Not Given Hydralazine HCl (Apresoline) 25 mg PO DAILY [facility] Last Admin: 03/16/17 09:24 Dose: 25 mg Moxifloxacin HCl (Avelox Iv 400mg/250ml Ns) 400 mg in 250 mls @ 167 mls/hr IVPB Q24H [facility] Last Admin: 03/16/17 09:31 Dose: 167 mls/hr Insulin Aspart (Novolog) 0 unit SC ACHS [facility] PRN Reason: Protocol Last Admin: 03/16/17 22:14 Dose: Not Given Levothyroxine Sodium (Synthroid) 100 mcg PO DAILY@0630 [facility] Last Admin: 03/17/17 05:41 Dose: 100 mcg Metformin HCl (Glucophage) 500 mg PO BID [facility] Last Admin: 03/16/17 17:26 Dose: Not Given Montelukast Sodium (Singulair) 10 mg PO [facility] Last Admin: 03/16/17 22:14 Dose: Not Given Nateglinide (Starlix) 60 mg PO ACTID [facility] Last Admin: 03/16/17 17:26 Dose: 60 mg Pneumococcal Polyvalent Vaccine (Pneumovax 23 Vaccine) 0.5 ml IM .ONCE ONE Stop: 03/19/17 10:01 Rosuvastatin Calcium (Crestor) 10 mg PO [facility] Last Admin: 03/16/17 22:14 Dose: Not Given Results - Vital Signs Recent Vital Signs: Last Vital Signs Temp 98.4 F 03/17/17 04:00 Pulse 62 03/17/17 04:00 Resp 20 03/17/17 04:00 BP 100/61 03/17/17 04:00 Pulse Ox 98 03/17/17 04:00 - Labs Result Diagrams: 03/17/17 06:27 03/17/17 06:27 Labs: Laboratory Results - last 24 hr 03/16/17 03/16/17 03/16/17 06:20 11:51 13:42 WBC RBC Hgb Hct MCV MCH MCHC RDW Plt Count MPV Neut % (Auto) Lymph % (Auto) [place] % (Auto) Eos % (Auto) Baso % (Auto) Neut # Lymph # [place] # Eos # Baso # Sodium Potassium Chloride Carbon Dioxide Anion Gap BUN Creatinine Est GFR ( Amer) Est GFR (Non-Af Amer) POC Glucose (mg/dL) 185 H Random Glucose Calcium Phosphorus Magnesium Total Bilirubin AST ALT Alkaline Phosphatase Total Creatine Kinase 46 CK-MB (Mass) 0.52 Troponin I, Quant 0.0320 Total Protein Albumin Globulin Albumin/Globulin Ratio Influenza Typ A,B (EIA) Negative for flu a/b Ur L.pneumophila Ag Mycoplasma pneumon IgM Negative 03/16/17 03/16/17 03/16/17 15:15 16:22 21:09 WBC RBC Hgb Hct MCV MCH MCHC RDW Plt Count MPV Neut % (Auto) Lymph % (Auto) [place] % (Auto) Eos % (Auto) Baso % (Auto) Neut # Lymph # [place] # Eos # Baso # Sodium Potassium Chloride Carbon Dioxide Anion Gap BUN Creatinine Est GFR ( Amer) Est GFR (Non-Af Amer) POC Glucose (mg/dL) 179 H 83 Random Glucose Calcium Phosphorus Magnesium Total Bilirubin AST ALT Alkaline Phosphatase Total Creatine Kinase CK-MB (Mass) Troponin I, Quant Total Protein Albumin Globulin Albumin/Globulin Ratio Influenza Typ A,B (EIA) Ur L.pneumophila Ag Negative Mycoplasma pneumon IgM 03/17/17 03/17/17 03/17/17 06:16 06:27 06:27 WBC 5.1 RBC 3.82 Hgb 11.3 Hct 35.0 MCV 91.4 MCH 29.6 MCHC 32.4 L RDW 15.2 H Plt Count 167 MPV 8.5 Neut % (Auto) 68.7 Lymph % (Auto) 15.2 L [place] % (Auto) 13.4 H Eos % (Auto) 2.4 Baso % (Auto) 0.3 Neut # 3.5 Lymph # 0.8 L [place] # 0.7 Eos # 0.1 Baso # 0.0 Sodium 139 Potassium 3.3 L Chloride 93 L Carbon Dioxide 34 H Anion Gap 15 BUN 20 H Creatinine 1.2 Est GFR ( Amer) 51 Est GFR (Non-Af Amer) 42 POC Glucose (mg/dL) 124 H Random Glucose 119 H Calcium 8.2 L Phosphorus 3.6 Magnesium 1.8 Total Bilirubin 0.9 AST 22 ALT 22 Alkaline Phosphatase 68 Total Creatine Kinase CK-MB (Mass) Troponin I, Quant Total Protein 6.8 Albumin 3.9 Globulin 2.9 Albumin/Globulin Ratio 1.3 Influenza Typ A,B (EIA) Ur L.pneumophila Ag Mycoplasma pneumon IgM <Jen Lal - Last Filed: 03/19/17 16:24> History of Present Illness - History of Present Illness History of Present Illness: Cardiology Consultation Note Dr. Roberson CC: Dyspnea for 3 days, and CHF HPI: This is an 89 year old female with PMH of pacemaker, Hx CVA, CHF, COPD, A- fib not on coagulated, HTN, non-IDDM, hypothyroidism presenting for cardiac evaluation of dyspnea. She was admitted for having 3 days of dyspnea. She states that she can walk 1 block before becoming SOB. She sleeps with 3 pillows at night and admits to chronic bilateral leg swelling. She admits to dizziness, but denies syncopal episodes. She admits to mild cough with white phelgm. She has previous Echo from Sep 2016 which showed mild-moderatve concentric LVH and EF of 70%, transmitral doppler flow pattern is Grade II-pseudonormal filling , trace aortic regurg. Previous EKGs in her medical record show AV dual pacing with prolonged AV conduction. 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 Manzano FH: Mother - DM, HTN, Father - denies cardiac hx PMD: Dr. Chowdhury Meds - Medications Medications: Current Medications Albuterol Sulfate (Albuterol 0.042% Inhal Lidia (1.25mg/3ml) Ud) 1.25 mg INH RQID [facility] Last Admin: 03/19/17 15:37 Dose: 1.25 mg Amiodarone HCl (Cordarone) 200 mg PO DAILY [facility] Last Admin: 03/19/17 10:58 Dose: 200 mg Bisoprolol Fumarate (Zebeta) 2.5 mg PO DAILY [facility] Last Admin: 03/19/17 11:02 Dose: Not Given Budesonide (Pulmicort Respules) 0.5 mg INH RQ12 [facility] Last Admin: 03/19/17 07:42 Dose: 0.5 mg Clopidogrel Bisulfate (Plavix) 75 mg PO DAILY [facility] Last Admin: 03/19/17 10:58 Dose: 75 mg Furosemide (Lasix) 40 mg IVP BID [facility] Last Admin: 03/19/17 11:00 Dose: 40 mg Guaifenesin (Mucinex La) 600 mg PO BID [facility] Last Admin: 03/19/17 10:58 Dose: 600 mg Hydralazine HCl (Apresoline) 25 mg PO DAILY [facility] Last Admin: 03/19/17 11:03 Dose: Not Given Moxifloxacin HCl (Avelox Iv 400mg/250ml Ns) 400 mg in 250 mls @ 167 mls/hr IVPB Q24H [facility] Last Admin: 03/19/17 11:08 Dose: 167 mls/hr Insulin Aspart (Novolog) 0 unit SC ACHS [facility] PRN Reason: Protocol Last Admin: 03/19/17 13:09 Dose: 1 unit Levothyroxine Sodium (Synthroid) 100 mcg PO DAILY@0630 [facility] Last Admin: 03/19/17 06:00 Dose: 100 mcg Metformin HCl (Glucophage) 500 mg PO BID [facility] Last Admin: 03/19/17 10:58 Dose: 500 mg Montelukast Sodium (Singulair) 10 mg PO HS [facility] Last Admin: 03/18/17 22:22 Dose: 10 mg Nateglinide (Starlix) 60 mg PO ACTID [facility] Last Admin: 03/19/17 13:08 Dose: 60 mg Potassium Chloride (K-Dur 20 Meq Er Tab) 20 meq PO DAILY [facility] Rosuvastatin Calcium (Crestor) 10 mg PO [facility] Last Admin: 03/18/17 22:22 Dose: 10 mg Physical Exam - Constitutional Appears: No Acute Distress - Head Exam Head Exam: ATRAUMATIC, NORMOCEPHALIC - Eye Exam Eye Exam: EOMI, Normal appearance, PERRL - ENT Exam ENT Exam: Mucous Membranes Moist - Respiratory Exam Respiratory Exam: Clear to Auscultation Bilateral, Wheezes (mild on exhilation, R lung base), NORMAL BREATHING PATTERN. absent: Rales, Rhonchi - Cardiovascular Exam Cardiovascular Exam: REGULAR RHYTHM, +S1, +S2 Additional comments: Diminished heart sound - GI/Abdominal Exam GI & Abdominal Exam: Normal Bowel Sounds, Soft. absent: Distended, Rigid, Tenderness - Neurological Exam Neurological exam: Oriented x3 - Psychiatric Exam Psychiatric exam: Normal Affect, Normal Mood - Skin Skin Exam: Dry, Normal Color Results - Vital Signs Recent Vital Signs: Last Vital Signs Temp 97.6 F 03/19/17 08:32 Pulse 57 L 03/19/17 12:15 Resp 20 03/19/17 08:32 BP 113/72 03/19/17 11:00 Pulse Ox 92 L 03/19/17 12:15 - Labs Result Diagrams: 03/19/17 06:20 03/19/17 06:20 Labs: Laboratory Results - last 24 hr 03/18/17 03/18/17 03/19/17 16:28 22:03 06:13 WBC RBC Hgb Hct MCV MCH MCHC RDW Plt Count MPV Neut % (Auto) Lymph % (Auto) [place] % (Auto) Eos % (Auto) Baso % (Auto) Neut # Lymph # [place] # Eos # Baso # Sodium Potassium Chloride Carbon Dioxide Anion Gap BUN Creatinine Est GFR ( Amer) Est GFR (Non-Af Amer) POC Glucose (mg/dL) 87 168 H 126 H Random Glucose Calcium Phosphorus Magnesium Total Bilirubin AST ALT Alkaline Phosphatase Troponin I NT-Pro-B Natriuret Pep Total Protein Albumin Globulin Albumin/Globulin Ratio 03/19/17 03/19/17 03/19/17 06:20 06:20 11:30 WBC 3.5 L RBC 3.92 Hgb 11.7 Hct 35.5 MCV 90.6 MCH 29.8 MCHC 32.9 L RDW 15.2 H Plt Count 201 MPV 8.5 Neut % (Auto) 41.8 L Lymph % (Auto) 39.6 [place] % (Auto) 12.6 H Eos % (Auto) 5.1 H Baso % (Auto) 0.9 Neut # 1.5 L Lymph # 1.4 [place] # 0.4 Eos # 0.2 Baso # 0.0 Sodium 138 Potassium 3.7 Chloride 95 L Carbon Dioxide 33 H Anion Gap 14 BUN 20 H Creatinine 1.1 Est GFR ( Amer) 57 Est GFR (Non-Af Amer) 47 POC Glucose (mg/dL) Random Glucose 117 H Calcium 8.5 L Phosphorus 4.5 Magnesium 1.8 Total Bilirubin 0.4 AST 26 ALT 31 Alkaline Phosphatase 68 Troponin I < 0.0120 NT-Pro-B Natriuret Pep 140 Total Protein 7.0 Albumin 4.0 Globulin 3.0 Albumin/Globulin Ratio 1.3 03/19/17 11:38 WBC RBC Hgb Hct MCV MCH MCHC RDW Plt Count MPV Neut % (Auto) Lymph % (Auto) [place] % (Auto) Eos % (Auto) Baso % (Auto) Neut # Lymph # [place] # Eos # Baso # Sodium Potassium Chloride Carbon Dioxide Anion Gap BUN Creatinine Est GFR ( Amer) Est GFR (Non-Af Amer) POC Glucose (mg/dL) 164 H Random Glucose Calcium Phosphorus Magnesium Total Bilirubin AST ALT Alkaline Phosphatase Troponin I NT-Pro-B Natriuret Pep Total Protein Albumin Globulin Albumin/Globulin Ratio Assessment & Plan - Assessment and Plan (Free Text) Plan: 89 F with PMHx recent PNA, DM, CHF s/p pacemaker 10/2016, CVA, presented with productive cough with SOB x 5 days. (+) orthopnea. CHF, acute on chronic, diastolic. 1. CHF - 03/15 EKG: dual paced rhythm with mildly prolong OH 210, 65 bpm, QRS 124, prolonged QTC 472, L axis deviation - 03/20 CXR: no active disease, no significant interval change compared to prior - CKMB normal 0.52; BNP - elevated 1010 - Reassess cardiac EF with echo 2. COPD - per primary team 3. Elevated trops - Trops x 3 normal: 0.0120, 0.0190, 0.0320; Possible from ventricular stretch 4. D-Dimer elevate - f/u CTA result 5. 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 Hx CAD and CVA - plavix, crestor S/R/D/w Dr. Roberson - Date & Time Date: 03/19/17 Time: 08:18
[2017-03-17] MEDS: (Novolog) Insulin Aspart, Recombinant 100 u/ml 10 ml vial SC SCH ×4 (08:19→22:18)
[2017-03-17] MEDS: Budesonide 0.5 mg/2 ml Inhal Susp UD INH SCH ×2 (08:53→19:28)
[2017-03-17] MEDS: Albuterol 0.042% Inhal Sol (1.25 mg/3 mL) UD INH SCH ×4 (08:54→19:28)
--- NOTE | 2017-03-17 10:09 | CP.PCM.PN ---
Subjective - Date & Time of Evaluation Date of Evaluation: 03/17/17 Time of Evaluation: 09:30 - Subjective Subjective: Patient was seen and examined by me The patient was out of bed in a chair. She reported no chest pain, no abdominal pain, no palpitations, no headache, no fever She reports lower extremity edema still present as well. CXRAY done in the morning Objective - Vital Signs/Intake and Output Vital Signs (last 24 hours): Temp Pulse Resp BP Pulse Ox 98.4 F 72 18 111/65 94 L 03/17/17 07:02 03/17/17 07:02 03/17/17 07:02 03/17/17 07:02 03/17/17 07:02 Intake and Output: 03/17/17 03/17/17 06:59 18:59 Intake Total 430 Balance 430 - Medications Medications: Current Medications Albuterol Sulfate (Albuterol 0.042% Inhal Lidia (1.25mg/3ml) Ud) 1.25 mg INH RQID [facility] Last Admin: 03/17/17 08:54 Dose: 1.25 mg Amiodarone HCl (Cordarone) 200 mg PO DAILY [facility] Last Admin: 03/16/17 09:24 Dose: 200 mg Bisoprolol Fumarate (Zebeta) 2.5 mg PO DAILY [facility] Last Admin: 03/16/17 10:55 Dose: 2.5 mg Budesonide (Pulmicort Respules) 0.5 mg INH RQ12 [facility] Last Admin: 03/17/17 08:53 Dose: 0.5 mg Clopidogrel Bisulfate (Plavix) 75 mg PO DAILY [facility] Last Admin: 03/16/17 09:24 Dose: 75 mg Furosemide (Lasix) 40 mg IVP BID [facility] Last Admin: 03/16/17 17:27 Dose: 40 mg Guaifenesin (Mucinex La) 600 mg PO BID [facility] Last Admin: 03/16/17 17:26 Dose: 600 mg Heparin Sodium (Porcine) (Heparin) 5,000 units SC Q12 [facility] Last Admin: 03/16/17 22:14 Dose: Not Given Hydralazine HCl (Apresoline) 25 mg PO DAILY [facility] Last Admin: 03/16/17 09:24 Dose: 25 mg Moxifloxacin HCl (Avelox Iv 400mg/250ml Ns) 400 mg in 250 mls @ 167 mls/hr IVPB Q24H [facility] Last Admin: 03/16/17 09:31 Dose: 167 mls/hr Insulin Aspart (Novolog) 0 unit SC ACHS [facility] PRN Reason: Protocol Last Admin: 03/17/17 08:19 Dose: Not Given Levothyroxine Sodium (Synthroid) 100 mcg PO DAILY@0630 [facility] Last Admin: 03/17/17 05:41 Dose: 100 mcg Metformin HCl (Glucophage) 500 mg PO BID [facility] Last Admin: 03/16/17 17:26 Dose: Not Given Montelukast Sodium (Singulair) 10 mg PO [facility] Last Admin: 03/16/17 22:14 Dose: Not Given Nateglinide (Starlix) 60 mg PO ACTID [facility] Last Admin: 03/16/17 17:26 Dose: 60 mg Pneumococcal Polyvalent Vaccine (Pneumovax 23 Vaccine) 0.5 ml IM .ONCE ONE Stop: 03/19/17 10:01 Potassium Chloride (K-Dur 20 Meq Er Tab) 40 meq PO DAILY [facility] Rosuvastatin Calcium (Crestor) 10 mg PO [facility] Last Admin: 03/16/17 22:14 Dose: Not Given - Labs Labs: 03/17/17 06:27 03/17/17 06:27 PT 10.7 SECONDS (9.7-12.2) 03/15/17 20:59 INR 1.0 03/15/17 20:59 APTT 27 SECONDS (21-34) 03/16/17 05:07 - Constitutional Appears: Well, No Acute Distress - Head Exam Head Exam: NORMAL INSPECTION - Eye Exam Eye Exam: EOMI - Respiratory Exam Respiratory Exam: Decreased Breath Sounds, Rales, Rhonchi - Cardiovascular Exam Cardiovascular Exam: REGULAR RHYTHM - GI/Abdominal Exam GI & Abdominal Exam: Soft. absent: Guarding, Rigid, Tenderness - Neurological Exam Neurological Exam: Alert, Awake Neuro motor strength exam: Left Upper Extremity: 5, Right Upper Extremity: 5, Left Lower Extremity: 4, Right Lower Extremity: 4 - Psychiatric Exam Psychiatric exam: Normal Affect, Normal Mood - Skin Skin Exam: Normal Color, Warm Assessment and Plan - Assessment and Plan (Free Text) Assessment: Pneumonia 5/6: Still reporting congestion, continue with IV lasix BID. Mucinex. Currently WBC stable, and does not have a fever. Continue with PT/OT. The blood and sputum cultures are negative at this time. CXR in AM recently had pneumonia 1 month ago, she does not feel as if it completely resolved. CXR: Cardiomegaly, Other (pacer left, mild vascular congestion, prominent r hilum not much changed from 12/29). See full report. Avelox 400mg IVPB Q24H [facility] Mucinex 600 mg PO BID [facility] for cough. Albuterol 1.25 mg INH QID [facility] Budesonide 0.5 mg INH RQ12 [facility] Singulair 10 mg PO HS [facility] Pulmonology consult, Dr. Black, help appreciated Shortness of Breath 5/6: Still short of breath. Ok at rest, however walking causes shortness of breath. Continue with PT/OT O2 NC 2L PRN CXR in AM Ddimer 541 CT Angio: No evidence of PE ROSALINDA negative x 3 EKG: AV dual paced rhythm with prolonged AV and PACs. f/u repeat EKG. P Cardio consult, Dr. Roberson, help appreciated Cardio consult, Dr. Chowdhury, help appreciated Pulmonology consult, Dr. Black, help appreciated Atrial Fibrillation s/p pacemaker with Dr. Roberson EKG: AV dual paced rhythm with prolonged AV and PACs. f/u repeat EKG. Amiodarone HCl 200 mg PO DAILY [facility] EP Cardio consult, Dr. Roberson, help appreciated Cardio consult, Dr. Chowdhury, help appreciated CHF diffuse rhonchi on exam. Feels extremely SOB when lies flat. prior echo: Echo mild to moderate left ventricular hypertrophy, systolic function is normal EF 70%, Grade II pseudonormal filling dynamica, trace aortic regurg, mid MR, mild-moderate pulmonary hypertension Lasix 40mg IVP BID EP Cardio consult, Dr. Roberson, help appreciated Cardio consult, Dr. Chowdhury, help appreciated Diabetes Novolog ISS - low dose Metformin HCl 500 mg PO BID [facility] Nateglinide (Starlix) 60 mg PO ACTID [facility] Hyperlipidemia Crestor 10 mg PO HS [facility] HTN Bisoprolol Fumarate (Zebeta) 2.5 mg PO DAILY [facility] Hydralazine HCl (Apresoline) 25 mg PO DAILY [facility] Hx CVA Plavix 75 mg PO DAILY [facility] Hypothyroidism Synthroid 100 mcg PO DAILY@0630 [facility] Prophylaxis Heparin 5,000 units SC Q12 [facility] Pneumovax 23
[2017-03-17] MEDS: guaiFENesin 600 mg ER Tab PO SCH ×2 (10:42→17:50)
[2017-03-17] MEDS: Moxifloxacin IV 400mg/250ml NS 400 MG/250 ML BAG IVPB SCH (10:42)
[2017-03-17] MEDS: Potassium Chloride 20 mEq ER Tab PO SCH (10:55)
--- NOTE | 2017-03-17 13:15 | RAD ---
HISTORY: Evaluate for pneumonia. Portable study 07:09. COMPARISON: 03/15/2017. FINDINGS: LUNGS: No active pulmonary disease. PLEURA: No significant pleural effusion identified, no pneumothorax apparent. CARDIOVASCULAR: Cardiomegaly. No evidence of acute, significant cardiovascular disease. Position/ configuration of pacemaker Satisfactory. OSSEOUS STRUCTURES: No significant abnormalities. VISUALIZED UPPER ABDOMEN: Normal. OTHER FINDINGS: None. IMPRESSION: No active disease. No significant interval change compared to the prior examination(s).
--- NOTE | 2017-03-17 15:32 | CON ---
DATE: 03/17/2017 REASON FOR CONSULTATION: Shortness of breath. 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 The patient presents because of shortness of breath and cough. The patient reported to me that she was recently treated for pneum onia. SOCIAL HISTORY: The patient is a nonsmoker. She lives with her daughter. 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 MEDICATIONS: Albuterol inhaler q.i.d., hydralazine 25 mg daily, Avelox 400 mg daily, amiodarone 200 mg daily, Cozaar 10 mg once a day, Glucophage 500 mg twice a day, heparin 5000 units subcutaneously t wice a day, K-Dur 40 mEq daily, Lasix 40 mg intravenous twice a day, Mucinex LA 600 mg twice a day, P lavix 75 mg once a day, Singulair 10 mg once a day, ____ 2.5 mg once a day. PAST MEDICAL HISTORY: COPD, CVA, paroxysmal atrial fibrillation. PHYSICAL EXAMINATION: GENERAL: The patient is an elderly female who does not appear to be in respiratory distress; however , she is coughing and expectorating whitish mucus. VITAL SIGNS: Blood pressure 125/72, heart rate 72, temperature 98.4, respiration 18. HEENT: Normocephalic. NECK: No JVD. CHEST: Left basilar coarse crepitations. HEART: S1, S2 regular. ABDOMEN: Soft. EXTREMITIES: 2+ pitting edema. LABORATORY DATA: SMA-7: Sodium 139, potassium 3.3, chloride 93, CO2 of 34, glucose 119, BUN 20, cre atinine 1.2. Chest x-ray revealed cardiomegaly, ____ of both costophrenic angles, trachea deviation to the right was noted. Chest CT scan performed yesterday revealed no evidence of pulmonary embolus, air space consolidation and small infiltrate seen in the lingula may represent pneumonia or atelecta sis. Possibility of neoplasm is less likely. A focal opacity at the left lung base, likely atelecta sis. Cardiomegaly. Mild emphysematous and pulmonary vascular congestion. EKG revealed a dual chamb er pacemaker rhythm with adequate atrial sensing and ventricular pacing. Atrial bigeminy was noted. Echocardiographic study performed in September of last year revealed an ejection fraction of 70%, mil d to moderate pulmonary hypertension, trace aortic insufficiency. ASSESSMENT: 1. Consider underlying left lower lobe pneumonia versus atelectasis. 2. Status post dual chamber pacemaker placement. The patient has atrial bigeminy. 3. Questionable history of atrial fibrillation. 4. Chronic obstructive lung disease. 5. Hypothyroidism. RECOMMENDATIONS: Continue current IV Avelox. Continue hydralazine at 25 mg daily, Robitussin at 1 t easpoonful t.i.d. Consider chest PT with nebulizer therapy. Consider humidified ____ per minute. T he patient was instructed to stay most of the time out of bed, especially at the time of receiving ne bulizer therapy to help expectorate. Consider also incentive spirometer. Tay Chowdhury MD cc: [id number] TT: 03/17/2017 15:31:54 Confirmation # [id number] Dictation # [id number] [email or web address]
[2017-03-18] MEDS: Levothyroxine 100 MCG TAB PO SCH (05:31)
[2017-03-18 06:56] LABS: BASO % 0.8 % (0.0-2.0); EOS # 0.2 K/uL (0.0-0.7); EOS % 4.4 % (0.0-4.0); HEMATOCRIT 35.4 % (34.0-47.0); LYMPH # 1.3 K/uL (1.0-4.3); LYMPH % 32.9 % (20.0-40.0); MEAN CELL VOLUME 90.3 fL (81.0-99.0); MEAN CORPUSCULAR HEMOGLOBIN 29.9 pg (27.0-31.0); MEAN CORPUSCULAR HGB CONC 33.2 g/dL (33.0-37.0); MEAN PLATELET VOLUME 8.5 fL (7.2-11.7); MONO # 0.7 K/uL (0.0-0.8); MONO % 17.7 % (0.0-10.0); RED CELL DISTRIBUTION WIDTH 15.2 % (11.5-14.5); WHITE BLOOD COUNT 3.8 K/uL (4.8-10.8)
[2017-03-18 07:03] LABS: CHLORIDE 93 mmol/L (98-107); POTASSIUM 2.9 mmol/L (3.6-5.2); SODIUM 137 mmol/L (132-148)
[2017-03-18 07:05] LABS: ALB/GLOB RATIO 1.3 (1.0-2.1); AST/SGOT 18 U/L (14-36); BILIRUBIN,TOTAL 0.4 mg/dL (0.2-1.3); CARBON DIOXIDE 32 mmol/L (22-30); GFR AFRICAN-AMERICAN > 60; TOTAL PROTEIN 6.8 g/dL (6.3-8.3)
[2017-03-18 07:06] LABS: ALKALINE PHOSPHATASE 70 U/L (38-126); ALT/SGPT 31 U/L (9-52); BLOOD UREA NITROGEN 19 mg/dL (7-17); CALCIUM 8.5 mg/dl (8.6-10.4); GLUCOSE,RANDOM 113 mg/dL (65-105); MAGNESIUM 1.6 mg/dL (1.6-2.3); PHOSPHOROUS 4.5 mg/dL (2.5-4.5)
--- NOTE | 2017-03-18 07:23 | CP.PCM.PN ---
Subjective - Date & Time of Evaluation Date of Evaluation: 03/18/17 Time of Evaluation: 07:00 Objective - Vital Signs/Intake and Output Vital Signs (last 24 hours): Temp Pulse Resp BP Pulse Ox 98.2 F 72 20 120/68 95 03/17/17 23:00 03/18/17 00:00 03/17/17 23:00 03/17/17 23:00 03/17/17 23:00 Intake and Output: 03/18/17 03/18/17 06:59 18:59 Intake Total 420 Balance 420 - Medications Medications: Current Medications Albuterol Sulfate (Albuterol 0.042% Inhal Lidia (1.25mg/3ml) Ud) 1.25 mg INH RQID [facility] Last Admin: 03/17/17 19:28 Dose: 1.25 mg Amiodarone HCl (Cordarone) 200 mg PO DAILY [facility] Last Admin: 03/17/17 10:43 Dose: 200 mg Bisoprolol Fumarate (Zebeta) 2.5 mg PO DAILY [facility] Last Admin: 03/17/17 10:45 Dose: 2.5 mg Budesonide (Pulmicort Respules) 0.5 mg INH RQ12 [facility] Last Admin: 03/17/17 19:28 Dose: 0.5 mg Clopidogrel Bisulfate (Plavix) 75 mg PO DAILY [facility] Last Admin: 03/17/17 10:42 Dose: 75 mg Furosemide (Lasix) 40 mg IVP BID [facility] Last Admin: 03/17/17 17:51 Dose: 40 mg Guaifenesin (Mucinex La) 600 mg PO BID [facility] Last Admin: 03/17/17 17:50 Dose: 600 mg Heparin Sodium (Porcine) (Heparin) 5,000 units SC Q12 [facility] Last Admin: 03/17/17 22:17 Dose: Not Given Hydralazine HCl (Apresoline) 25 mg PO DAILY [facility] Last Admin: 03/17/17 10:43 Dose: 25 mg Moxifloxacin HCl (Avelox Iv 400mg/250ml Ns) 400 mg in 250 mls @ 167 mls/hr IVPB Q24H [facility] Last Admin: 03/17/17 10:42 Dose: 167 mls/hr Insulin Aspart (Novolog) 0 unit SC ACHS [facility] PRN Reason: Protocol Last Admin: 03/17/17 22:18 Dose: Not Given Levothyroxine Sodium (Synthroid) 100 mcg PO DAILY@0630 [facility] Last Admin: 03/18/17 05:31 Dose: 100 mcg Metformin HCl (Glucophage) 500 mg PO BID [facility] Last Admin: 03/16/17 17:26 Dose: Not Given Montelukast Sodium (Singulair) 10 mg PO [facility] Last Admin: 03/17/17 22:17 Dose: 10 mg Nateglinide (Starlix) 60 mg PO ACTID [facility] Last Admin: 03/17/17 17:30 Dose: 60 mg Pneumococcal Polyvalent Vaccine (Pneumovax 23 Vaccine) 0.5 ml IM .ONCE ONE Stop: 03/19/17 10:01 Potassium Chloride (K-Dur 20 Meq Er Tab) 40 meq PO DAILY [facility] Last Admin: 03/17/17 10:55 Dose: 40 meq Rosuvastatin Calcium (Crestor) 10 mg PO [facility] Last Admin: 03/17/17 22:17 Dose: 10 mg - Labs Labs: 03/18/17 06:50 03/18/17 06:50 PT 10.7 SECONDS (9.7-12.2) 03/15/17 20:59 INR 1.0 03/15/17 20:59 APTT 27 SECONDS (21-34) 03/16/17 05:07
[2017-03-18] MEDS: (Novolog) Insulin Aspart, Recombinant 100 u/ml 10 ml vial SC SCH ×4 (08:04→22:23)
[2017-03-18] MEDS: Budesonide 0.5 mg/2 ml Inhal Susp UD INH SCH ×2 (08:33→19:28)
[2017-03-18] MEDS: Albuterol 0.042% Inhal Sol (1.25 mg/3 mL) UD INH SCH ×4 (08:33→19:28)
--- NOTE | 2017-03-18 09:44 | CP.PCM.PN ---
Subjective - Date & Time of Evaluation Date of Evaluation: 03/18/17 Time of Evaluation: 09:30 - Subjective Subjective: Patient was sitting up out of bed. She reported still coughing, congestion, Denied fever, denied chills, denied chest pain, denied palpitations, denied abdominal pain. She says she can walk but does not want to. When asked why she says she just does not feel like it. I encouraged her to walk and be out of bed in chair as much as possible. Her WBC is stable, afebrile, and cultures are negative at this time. The CT findings might be atelectasis. Additional K given today Objective - Vital Signs/Intake and Output Vital Signs (last 24 hours): Temp Pulse Resp BP Pulse Ox 98.0 F 68 18 113/69 95 03/18/17 07:02 03/18/17 08:00 03/18/17 07:02 03/18/17 07:02 03/18/17 07:02 Intake and Output: 03/18/17 03/18/17 06:59 18:59 Intake Total 420 Balance 420 - Medications Medications: Current Medications Albuterol Sulfate (Albuterol 0.042% Inhal Lidia (1.25mg/3ml) Ud) 1.25 mg INH RQID [facility] Last Admin: 03/18/17 08:33 Dose: 1.25 mg Amiodarone HCl (Cordarone) 200 mg PO DAILY [facility] Last Admin: 03/17/17 10:43 Dose: 200 mg Bisoprolol Fumarate (Zebeta) 2.5 mg PO DAILY [facility] Last Admin: 03/17/17 10:45 Dose: 2.5 mg Budesonide (Pulmicort Respules) 0.5 mg INH RQ12 [facility] Last Admin: 03/18/17 08:33 Dose: 0.5 mg Clopidogrel Bisulfate (Plavix) 75 mg PO DAILY [facility] Last Admin: 03/17/17 10:42 Dose: 75 mg Furosemide (Lasix) 40 mg IVP BID [facility] Last Admin: 03/17/17 17:51 Dose: 40 mg Guaifenesin (Mucinex La) 600 mg PO BID [facility] Last Admin: 03/17/17 17:50 Dose: 600 mg Heparin Sodium (Porcine) (Heparin) 5,000 units SC Q12 [facility] Last Admin: 03/17/17 22:17 Dose: Not Given Hydralazine HCl (Apresoline) 25 mg PO DAILY [facility] Last Admin: 03/17/17 10:43 Dose: 25 mg Moxifloxacin HCl (Avelox Iv 400mg/250ml Ns) 400 mg in 250 mls @ 167 mls/hr IVPB Q24H [facility] Last Admin: 03/17/17 10:42 Dose: 167 mls/hr Insulin Aspart (Novolog) 0 unit SC ACHS [facility] PRN Reason: Protocol Last Admin: 03/18/17 08:04 Dose: Not Given Levothyroxine Sodium (Synthroid) 100 mcg PO DAILY@0630 [facility] Last Admin: 03/18/17 05:31 Dose: 100 mcg Metformin HCl (Glucophage) 500 mg PO BID [facility] Last Admin: 03/16/17 17:26 Dose: Not Given Montelukast Sodium (Singulair) 10 mg PO [facility] Last Admin: 03/17/17 22:17 Dose: 10 mg Nateglinide (Starlix) 60 mg PO ACTID [facility] Last Admin: 03/18/17 08:28 Dose: 60 mg Pneumococcal Polyvalent Vaccine (Pneumovax 23 Vaccine) 0.5 ml IM .ONCE ONE Stop: 03/19/17 10:01 Potassium Chloride (K-Dur 20 Meq Er Tab) 40 meq PO DAILY [facility] Last Admin: 03/17/17 10:55 Dose: 40 meq Rosuvastatin Calcium (Crestor) 10 mg PO [facility] Last Admin: 03/17/17 22:17 Dose: 10 mg - Labs Labs: 03/18/17 06:50 03/18/17 06:50 PT 10.7 SECONDS (9.7-12.2) 03/15/17 20:59 INR 1.0 03/15/17 20:59 APTT 27 SECONDS (21-34) 03/16/17 05:07 - Constitutional Appears: Non-toxic, No Acute Distress - Head Exam Head Exam: NORMAL INSPECTION - Eye Exam Eye Exam: EOMI, Normal appearance - ENT Exam ENT Exam: Mucous Membranes Moist - Respiratory Exam Respiratory Exam: Decreased Breath Sounds, Rhonchi - Cardiovascular Exam Cardiovascular Exam: REGULAR RHYTHM - GI/Abdominal Exam GI & Abdominal Exam: Soft, Normal Bowel Sounds. absent: Guarding, Rigid, Tenderness - Neurological Exam Neurological Exam: Alert, Awake, CN II-XII Intact, Oriented x3 Neuro motor strength exam: Left Upper Extremity: 5, Right Upper Extremity: 5, Left Lower Extremity: 4, Right Lower Extremity: 4 - Psychiatric Exam Psychiatric exam: Depressed, Flat Affect - Skin Skin Exam: Normal Color, Warm Assessment and Plan - Assessment and Plan (Free Text) Assessment: Pneumonia 03/18: WBC stable, no fever, cultures negative. The CT findings probably are not infectious but atelecasis. Currently on Avelox, mucinx. 03/17: Still reporting congestion, continue with IV lasix BID. Mucinex. Currently WBC stable, and does not have a fever. Continue with PT/OT. The blood and sputum cultures are negative at this time. CXR in AM recently had pneumonia 1 month ago, she does not feel as if it completely resolved. CXR: Cardiomegaly, Other (pacer left, mild vascular congestion, prominent r hilum not much changed from 12/29). See full report. Avelox 400mg IVPB Q24H [facility] Mucinex 600 mg PO BID [facility] for cough. Albuterol 1.25 mg INH QID [facility] Budesonide 0.5 mg INH RQ12 [facility] Singulair 10 mg PO HS [facility] Pulmonology consult, Dr. Black, help appreciated COPD and Shortness of Breath 03/18: She reports minimal improvement today - solumedrol 60 BID, continue other medications 03/17: Still short of breath. Ok at rest, however walking causes shortness of breath. Continue with PT/OT O2 NC 2L PRN CXR in AM Ddimer 541 CT Angio: No evidence of PE ROSALINDA negative x 3 EKG: AV dual paced rhythm with prolonged AV and PACs. f/u repeat EKG. P Cardio consult, Dr. Roberson, help appreciated Cardio consult, Dr. Chowdhury, help appreciated Pulmonology consult, Dr. Black, help appreciated Atrial Fibrillation 03/18: Currently paced at 70 s/p pacemaker with Dr. Roberson EKG: AV dual paced rhythm with prolonged AV and PACs. f/u repeat EKG. Amiodarone HCl 200 mg PO DAILY [facility] EP Cardio consult, Dr. Roberson, help appreciated Cardio consult, Dr. Chowdhury, help appreciated CHF 03/18: Yesterday chest XRAY no changed from before, she reports still has a lot of edema in lower extremity.l diffuse rhonchi on exam. Feels extremely SOB when lies flat. prior echo: Echo mild to moderate left ventricular hypertrophy, systolic function is normal EF 70%, Grade II pseudonormal filling dynamica, trace aortic regurg, mid MR, mild-moderate pulmonary hypertension Lasix 40mg IVP BID EP Cardio consult, Dr. Roberson, help appreciated Cardio consult, Dr. Chowdhury, help appreciated Diabetes Novolog ISS - low dose Metformin HCl 500 mg PO BID [facility] Nateglinide (Starlix) 60 mg PO ACTID [facility] Hyperlipidemia Crestor 10 mg PO HS [facility] HTN Bisoprolol Fumarate (Zebeta) 2.5 mg PO DAILY [facility] Hydralazine HCl (Apresoline) 25 mg PO DAILY [facility] Hx CVA Plavix 75 mg PO DAILY [facility] Hypothyroidism Synthroid 100 mcg PO DAILY@0630 [facility] Prophylaxis Heparin 5,000 units SC Q12 [facility] Pneumovax 23
[2017-03-18] MEDS: guaiFENesin 600 mg ER Tab PO SCH ×2 (09:45→17:19)
[2017-03-18] MEDS: Potassium Chloride 20 mEq ER Tab PO SCH (09:45)
[2017-03-18] MEDS: Moxifloxacin IV 400mg/250ml NS 400 MG/250 ML BAG IVPB SCH (09:48)
--- NOTE | 2017-03-18 10:33 | CP.PCM.CON ---
History of Present Illness - History of Present Illness History of Present Illness: reason for consultation: Productive Cough + Shortness of breath. 89 year old female with PMHx of recent Pneumonia, DM, CHF, and CVA - presented c/o productive cough and shortness of breath for the last 5 days [facility]. Patient was admitted to for pneumonia last month and feels like she has pneumonia again. She admits to increased SOB while lying flat and sleeps with an adjustable bed, elevating 30 degree angle while sleeping. PMHx: Pneumonia, DM, CVA, h/o PE, CAD, arthritis, hypercholesterolemia, hypothyroidism, RA, CHF Surgical Hx: cataract surgery, , pacemaker (10/2016) Meds- Metformin 500mg PO daily , Imdur, Nateglinide, Synthroid 100mcg PO daily, Plavix 75mg daily, Crestor 10mg HS, Metoprolol succ ER 50mg PO daily Allergies: Penicillin ("sometimes") Social Hx: Denies drugs, tobacco, and alcohol Review of Systems - Review of Systems All systems: reviewed and no additional remarkable complaints except (shortness of breath cough and swelling of legs) Past Patient History - Infectious Disease Hx of Infectious Diseases: None - Past Medical History & Family History Past Medical History?: Yes - Past Social History Smoking Status: Never Smoked - CARDIAC Hx Cardiac Disorders: Yes (A FIBRILLATION) Hx Congestive Heart Failure: Yes Hx Hypercholesterolemia: Yes - PULMONARY Hx Chronic Obstructive Pulmonary Disease (COPD): Yes - NEUROLOGICAL Hx Alzheimer's Disease: No Hx Dementia: No Hx Migraine: No Hx Multiple Sclerosis: No Hx Parkinson's Disease: No Hx Seizures: No Hx Transient Ischemic Attacks (TIA): No - HEENT Hx HEENT Problems: Yes Hx Blind: No Hx Cataracts: No Hx Deafness: No Hx Difficulty Chewing: No Hx Epistaxis: No Hx Glaucoma: Yes Hx Macular Degeneration: No Other/Comment: SURGERY GLAUCOMA BOTH EYES - RENAL Hx Chronic Kidney Disease: No Hx Kidney Stones: No - ENDOCRINE/METABOLIC Hx Hypothyroidism: Yes - HEMATOLOGICAL/ONCOLOGICAL Hx Anemia: No Hx Human Immunodeficiency Virus (HIV): No Hx Sickle Cell Disease: No - INTEGUMENTARY Hx Dermatological Problems: No Hx Basil Cell: No Hx Gao: No Hx Cellulitis: No Hx Eczema: No Hx Melanoma: No Hx Psoriasis: No Hx Squamous Cell: No - MUSCULOSKELETAL/RHEUMATOLOGICAL Hx Rheumatoid Arthritis: Yes - GASTROINTESTINAL Hx Crohn's Disease: No Hx Diverticulitis: No Hx Gall Bladder Disease: No Hx Gastritis: No Hx Pancreatitis: No - GENITOURINARY/GYNECOLOGICAL Hx Sexually Transmitted Disorders: No - PSYCHIATRIC Hx Anxiety: No Hx Bipolar Disorder: No Hx Depression: No Hx Paranoia: No Hx Post Traumatic Stress Disorder: No Hx Schizophrenia: No Hx Substance Use: No - SURGICAL HISTORY Hx Appendectomy: Yes Hx Carotid Endarterectomy: No Hx Cholecystectomy: No Hx Coronary Artery Bypass Graft: No Hx Coronary Stent: No Hx Tonsillectomy: No - ANESTHESIA Hx Anesthesia: Yes Hx Anesthesia Reactions: No Hx Malignant Hyperthermia: No Meds Allergies/Adverse Reactions: Allergies Allergy/AdvReac Type Severity Reaction Status Date / Time Penicillins Allergy RASH Verified 11/14/16 21:58 - Medications Medications: Current Medications Albuterol Sulfate (Albuterol 0.042% Inhal Lidia (1.25mg/3ml) Ud) 1.25 mg INH RQID [facility] Last Admin: 03/18/17 08:33 Dose: 1.25 mg Amiodarone HCl (Cordarone) 200 mg PO DAILY [facility] Last Admin: 03/18/17 09:45 Dose: 200 mg Bisoprolol Fumarate (Zebeta) 2.5 mg PO DAILY [facility] Last Admin: 03/18/17 10:26 Dose: 2.5 mg Budesonide (Pulmicort Respules) 0.5 mg INH RQ12 [facility] Last Admin: 03/18/17 08:33 Dose: 0.5 mg Clopidogrel Bisulfate (Plavix) 75 mg PO DAILY [facility] Last Admin: 03/18/17 09:45 Dose: 75 mg Furosemide (Lasix) 40 mg IVP BID [facility] Last Admin: 03/18/17 09:45 Dose: 40 mg Guaifenesin (Mucinex La) 600 mg PO BID [facility] Last Admin: 03/18/17 09:45 Dose: 600 mg Heparin Sodium (Porcine) (Heparin) 5,000 units SC Q12 [facility] Last Admin: 03/18/17 09:45 Dose: 5,000 units Hydralazine HCl (Apresoline) 25 mg PO DAILY [facility] Last Admin: 03/18/17 09:46 Dose: 25 mg Moxifloxacin HCl (Avelox Iv 400mg/250ml Ns) 400 mg in 250 mls @ 167 mls/hr IVPB Q24H [facility] Last Admin: 03/18/17 09:48 Dose: 167 mls/hr Insulin Aspart (Novolog) 0 unit SC ACHS [facility] PRN Reason: Protocol Last Admin: 03/18/17 08:04 Dose: Not Given Levothyroxine Sodium (Synthroid) 100 mcg PO DAILY@0630 [facility] Last Admin: 03/18/17 05:31 Dose: 100 mcg Metformin HCl (Glucophage) 500 mg PO BID [facility] Last Admin: 03/16/17 17:26 Dose: Not Given Montelukast Sodium (Singulair) 10 mg PO [facility] Last Admin: 03/17/17 22:17 Dose: 10 mg Nateglinide (Starlix) 60 mg PO ACTID [facility] Last Admin: 03/18/17 08:28 Dose: 60 mg Pneumococcal Polyvalent Vaccine (Pneumovax 23 Vaccine) 0.5 ml IM .ONCE ONE Stop: 03/19/17 10:01 Potassium Chloride (K-Dur 20 Meq Er Tab) 40 meq PO DAILY [facility] Last Admin: 03/18/17 09:45 Dose: 40 meq Potassium Chloride (Potassium Chloride Oral Soln) 20 meq PO ONCE ONE Stop: 03/18/17 12:01 Rosuvastatin Calcium (Crestor) 10 mg PO [facility] Last Admin: 03/17/17 22:17 Dose: 10 mg Physical Exam - Head Exam Head Exam: ATRAUMATIC, NORMOCEPHALIC - Eye Exam Eye Exam: Normal appearance - ENT Exam ENT Exam: Mucous Membranes Moist - Neck Exam Neck exam: Positive for: Normal Inspection - Respiratory Exam Respiratory Exam: Rales, Rhonchi - Cardiovascular Exam Cardiovascular Exam: REGULAR RHYTHM - GI/Abdominal Exam GI & Abdominal Exam: Normal Bowel Sounds - Extremities Exam Extremities exam: Positive for: pedal edema - Neurological Exam Neurological exam: Alert, Oriented x3 Results - Vital Signs Recent Vital Signs: Last Vital Signs Temp 98.0 F 03/18/17 07:02 Pulse 68 03/18/17 08:00 Resp 18 03/18/17 07:02 BP 113/69 03/18/17 09:45 Pulse Ox 95 03/18/17 07:02 - Labs Result Diagrams: 03/18/17 06:50 03/18/17 06:50 Labs: Laboratory Results - last 24 hr 03/17/17 03/17/17 03/17/17 11:30 16:45 21:00 WBC RBC Hgb Hct MCV MCH MCHC RDW Plt Count MPV Neut % (Auto) Lymph % (Auto) Saline % (Auto) Eos % (Auto) Baso % (Auto) Neut # Lymph # Saline # Eos # Baso # Sodium Potassium Chloride Carbon Dioxide Anion Gap BUN Creatinine Est GFR ( Amer) Est GFR (Non-Af Amer) POC Glucose (mg/dL) 186 H 145 H 120 H Random Glucose Calcium Phosphorus Magnesium Total Bilirubin AST ALT Alkaline Phosphatase Total Protein Albumin Globulin Albumin/Globulin Ratio 03/18/17 03/18/17 03/18/17 06:07 06:50 06:50 WBC 3.8 L RBC 3.92 Hgb 11.7 Hct 35.4 MCV 90.3 MCH 29.9 MCHC 33.2 RDW 15.2 H Plt Count 192 MPV 8.5 Neut % (Auto) 44.2 L Lymph % (Auto) 32.9 Saline % (Auto) 17.7 H Eos % (Auto) 4.4 H Baso % (Auto) 0.8 Neut # 1.7 L Lymph # 1.3 Saline # 0.7 Eos # 0.2 Baso # 0.0 Sodium 137 Potassium 2.9 L Chloride 93 L Carbon Dioxide 32 H Anion Gap 15 BUN 19 H Creatinine 1.0 Est GFR ( Amer) > 60 Est GFR (Non-Af Amer) 52 POC Glucose (mg/dL) 134 H Random Glucose 113 H Calcium 8.5 L Phosphorus 4.5 Magnesium 1.6 Total Bilirubin 0.4 AST 18 ALT 31 Alkaline Phosphatase 70 Total Protein 6.8 Albumin 3.9 Globulin 2.9 Albumin/Globulin Ratio 1.3 Assessment & Plan (1) COPD (chronic obstructive pulmonary disease) Status: Acute Comment: CAT scan of the chest consistent with small lingular infiltrate. Continue antibiotics, nebulizer treatment and followup culture and sensitivity. Continue diuretics (2) Chronic congestive heart failure Status: Acute
[2017-03-18] MEDS ORDERED: Potassium Chloride 20 mEq/15 ml LIQ UD PO ONE (12:00)
--- NOTE | 2017-03-18 13:42 | CP.PCM.PN ---
Subjective - Date & Time of Evaluation Date of Evaluation: 03/18/17 Time of Evaluation: 07:15 Objective - Vital Signs/Intake and Output Vital Signs (last 24 hours): Temp Pulse Resp BP Pulse Ox 98.0 F 68 18 113/69 95 03/18/17 07:02 03/18/17 08:00 03/18/17 07:02 03/18/17 09:45 03/18/17 07:02 Intake and Output: 03/18/17 03/18/17 06:59 18:59 Intake Total 420 Balance 420 - Medications Medications: Current Medications Albuterol Sulfate (Albuterol 0.042% Inhal Lidia (1.25mg/3ml) Ud) 1.25 mg INH RQID [facility] Last Admin: 03/18/17 08:33 Dose: 1.25 mg Amiodarone HCl (Cordarone) 200 mg PO DAILY [facility] Last Admin: 03/18/17 09:45 Dose: 200 mg Bisoprolol Fumarate (Zebeta) 2.5 mg PO DAILY [facility] Last Admin: 03/18/17 10:26 Dose: 2.5 mg Budesonide (Pulmicort Respules) 0.5 mg INH RQ12 [facility] Last Admin: 03/18/17 08:33 Dose: 0.5 mg Clopidogrel Bisulfate (Plavix) 75 mg PO DAILY [facility] Last Admin: 03/18/17 09:45 Dose: 75 mg Furosemide (Lasix) 40 mg IVP BID [facility] Last Admin: 03/18/17 09:45 Dose: 40 mg Guaifenesin (Mucinex La) 600 mg PO BID [facility] Last Admin: 03/18/17 09:45 Dose: 600 mg Heparin Sodium (Porcine) (Heparin) 5,000 units SC Q12 [facility] Last Admin: 03/18/17 09:45 Dose: 5,000 units Hydralazine HCl (Apresoline) 25 mg PO DAILY [facility] Last Admin: 03/18/17 09:46 Dose: 25 mg Moxifloxacin HCl (Avelox Iv 400mg/250ml Ns) 400 mg in 250 mls @ 167 mls/hr IVPB Q24H [facility] Last Admin: 03/18/17 09:48 Dose: 167 mls/hr Insulin Aspart (Novolog) 0 unit SC ACHS [facility] PRN Reason: Protocol Last Admin: 03/18/17 12:48 Dose: 1 unit Levothyroxine Sodium (Synthroid) 100 mcg PO DAILY@0630 [facility] Last Admin: 03/18/17 05:31 Dose: 100 mcg Metformin HCl (Glucophage) 500 mg PO BID [facility] Last Admin: 03/18/17 12:47 Dose: 500 mg Montelukast Sodium (Singulair) 10 mg PO [facility] Last Admin: 03/17/17 22:17 Dose: 10 mg Nateglinide (Starlix) 60 mg PO ACTID [facility] Last Admin: 03/18/17 12:49 Dose: 60 mg Pneumococcal Polyvalent Vaccine (Pneumovax 23 Vaccine) 0.5 ml IM .ONCE ONE Stop: 03/19/17 10:01 Potassium Chloride (K-Dur 20 Meq Er Tab) 40 meq PO DAILY [facility] Last Admin: 03/18/17 09:45 Dose: 40 meq Rosuvastatin Calcium (Crestor) 10 mg PO [facility] Last Admin: 03/17/17 22:17 Dose: 10 mg - Labs Labs: 03/18/17 06:50 03/18/17 06:50 PT 10.7 SECONDS (9.7-12.2) 03/15/17 20:59 INR 1.0 03/15/17 20:59 APTT 27 SECONDS (21-34) 03/16/17 05:07
[2017-03-18 15:26] VITALS: RESP 20
--- NOTE | 2017-03-18 15:36 | PN ---
DATE: 03/18/2017 The patient is still experiencing a productive cough. No retrosternal chest pain. She is bothered b y her leg swelling. PHYSICAL EXAMINATION: VITAL SIGNS: Blood pressure 116/69, heart rate 68, temperature 98, respirations 18. HEENT: Normocephalic. NECK: No JVD. CHEST: Coarse left basilar crepitations. HEART: S1, S2 regular. ABDOMEN: Soft. EXTREMITIES: 2+ pitting edema. LABORATORIES: Today's white count 3.8, hemoglobin and hematocrit 11.7 and 35.4, platelet count 192,0 00. Today's potassium is 2.9, glucose 115. BUN and creatinine are 19 and 1.0. I did review yesterd ay's repeat chest x-ray, which did not reveal any consolidation or significant effusion. There was cardiomegaly. ASSESSMENT: 1. Exacerbation of chronic obstructive lung disease. 2. Consider left basilar atelectasis. 3. Status post dual chamber pacemaker placement. 4. Consider right-sided failure. 5. Hypothyroidism. RECOMMENDATIONS: Continue hydralazine at 25 mg daily, amiodarone 200 mg once a day, subcutaneous hep toya 5000 units q.12 hours, Lasix at 40 mg intravenously twice a day, Zebeta 2.5 mg daily. Additiona l dose of 20 mEq of oral potassium solution was administered today. Obtain a BMP in a.m. The case w as discussed with the patient's daughter at the bedside. Tay Chowduhry MD cc: [id number] TT: 03/18/2017 15:36:23 Confirmation # [id number] Dictation # [id number]
--- NOTE | 2017-03-18 17:09 | CARD ---
APPROVED REPORT EKG Measurement Heart [id number] <Conclusion> AV dual-paced rhythm with prolonged AV conduction Abnormal ECG
[2017-03-19] MEDS: Levothyroxine 100 MCG TAB PO SCH (06:00)
[2017-03-19 07:02] LABS: POTASSIUM 3.7 mmol/L (3.6-5.2)
[2017-03-19 07:04] LABS: ALB/GLOB RATIO 1.3 (1.0-2.1); BILIRUBIN,TOTAL 0.4 mg/dL (0.2-1.3)
[2017-03-19 07:05] LABS: CALCIUM 8.5 mg/dl (8.6-10.4); MAGNESIUM 1.8 mg/dL (1.6-2.3); PHOSPHOROUS 4.5 mg/dL (2.5-4.5)
[2017-03-19 07:08] LABS: BASO % 0.9 % (0.0-2.0); EOS # 0.2 K/uL (0.0-0.7); EOS % 5.1 % (0.0-4.0); HEMATOCRIT 35.5 % (34.0-47.0); LYMPH # 1.4 K/uL (1.0-4.3); LYMPH % 39.6 % (20.0-40.0); MEAN CELL VOLUME 90.6 fL (81.0-99.0); MEAN CORPUSCULAR HEMOGLOBIN 29.8 pg (27.0-31.0); MEAN CORPUSCULAR HGB CONC 32.9 g/dL (33.0-37.0); MEAN PLATELET VOLUME 8.5 fL (7.2-11.7); MONO # 0.4 K/uL (0.0-0.8); MONO % 12.6 % (0.0-10.0); NRBC % 0.1 % (0.0-2.0); RED CELL DISTRIBUTION WIDTH 15.2 % (11.5-14.5); WHITE BLOOD COUNT 3.5 K/uL (4.8-10.8)
[2017-03-19] MEDS: Budesonide 0.5 mg/2 ml Inhal Susp UD INH SCH (07:42)
[2017-03-19] MEDS: Albuterol 0.042% Inhal Sol (1.25 mg/3 mL) UD INH SCH ×3 (07:42→15:37)
[2017-03-19] MEDS: (Novolog) Insulin Aspart, Recombinant 100 u/ml 10 ml vial SC SCH ×3 (08:07→16:57)
[2017-03-19] MEDS ORDERED: Pneumococcal 23-Valent Vaccine IM ONE (10:00)
--- NOTE | 2017-03-19 10:14 | CP.PCM.PN ---
Subjective - Date & Time of Evaluation Date of Evaluation: 03/19/17 Time of Evaluation: 10:11 - Subjective Subjective: Cardiology. PGY-[address] Roberson Pt seen and examined. Daughter by bedside. Cough improves. (+) SOB on exertion. (+) orthopnea. Deneis CP, N/V/D/C, dizzy Objective - Vital Signs/Intake and Output Vital Signs (last 24 hours): Temp Pulse Resp BP Pulse Ox 97.6 F 65 20 111/72 95 03/19/17 08:32 03/19/17 08:32 03/19/17 08:32 03/19/17 08:32 03/19/17 08:32 Intake and Output: 03/19/17 03/19/17 06:59 18:59 Intake Total 340 Balance 340 - Medications Medications: Current Medications Albuterol Sulfate (Albuterol 0.042% Inhal Lidia (1.25mg/3ml) Ud) 1.25 mg INH RQID [facility] Last Admin: 03/19/17 07:42 Dose: 1.25 mg Amiodarone HCl (Cordarone) 200 mg PO DAILY [facility] Last Admin: 03/18/17 09:45 Dose: 200 mg Bisoprolol Fumarate (Zebeta) 2.5 mg PO DAILY [facility] Last Admin: 03/18/17 10:26 Dose: 2.5 mg Budesonide (Pulmicort Respules) 0.5 mg INH RQ12 [facility] Last Admin: 03/19/17 07:42 Dose: 0.5 mg Clopidogrel Bisulfate (Plavix) 75 mg PO DAILY [facility] Last Admin: 03/18/17 09:45 Dose: 75 mg Furosemide (Lasix) 40 mg IVP BID [facility] Last Admin: 03/18/17 17:20 Dose: 40 mg Guaifenesin (Mucinex La) 600 mg PO BID [facility] Last Admin: 03/18/17 17:19 Dose: 600 mg Hydralazine HCl (Apresoline) 25 mg PO DAILY [facility] Last Admin: 03/18/17 09:46 Dose: 25 mg Moxifloxacin HCl (Avelox Iv 400mg/250ml Ns) 400 mg in 250 mls @ 167 mls/hr IVPB Q24H [facility] Last Admin: 03/18/17 09:48 Dose: 167 mls/hr Insulin Aspart (Novolog) 0 unit SC ACHS [facility] PRN Reason: Protocol Last Admin: 03/19/17 08:07 Dose: Not Given Levothyroxine Sodium (Synthroid) 100 mcg PO DAILY@0630 [facility] Last Admin: 03/19/17 06:00 Dose: 100 mcg Metformin HCl (Glucophage) 500 mg PO BID [facility] Last Admin: 03/18/17 17:20 Dose: Not Given Montelukast Sodium (Singulair) 10 mg PO HS [facility] Last Admin: 03/18/17 22:22 Dose: 10 mg Nateglinide (Starlix) 60 mg PO ACTID [facility] Last Admin: 03/19/17 08:45 Dose: 60 mg Potassium Chloride (K-Dur 20 Meq Er Tab) 40 meq PO DAILY [facility] Last Admin: 03/18/17 09:45 Dose: 40 meq Rosuvastatin Calcium (Crestor) 10 mg PO [facility] Last Admin: 03/18/17 22:22 Dose: 10 mg - Labs Labs: 03/19/17 06:20 03/19/17 06:20 PT 10.7 SECONDS (9.7-12.2) 03/15/17 20:59 INR 1.0 03/15/17 20:59 APTT 27 SECONDS (21-34) 03/16/17 05:07 - Constitutional Appears: Non-toxic, No Acute Distress - Head Exam Head Exam: NORMAL INSPECTION - Eye Exam Eye Exam: EOMI, Normal appearance, PERRL Pupil Exam: NORMAL ACCOMODATION - ENT Exam ENT Exam: Mucous Membranes Moist - Neck Exam Neck Exam: Normal Inspection - Respiratory Exam Respiratory Exam: Clear to Ausculation Bilateral, Rales, Wheezes (lung base). absent: Rhonchi - Cardiovascular Exam Cardiovascular Exam: REGULAR RHYTHM, +S1, +S2. absent: Murmur - GI/Abdominal Exam GI & Abdominal Exam: Soft. absent: Guarding, Rigid - Extremities Exam Extremities Exam: Normal Capillary Refill, Pedal Edema. absent: Calf Tenderness - Neurological Exam Neurological Exam: Alert, Awake, Oriented x3 - Psychiatric Exam Psychiatric exam: Normal Affect, Normal Mood - Skin Skin Exam: Warm Assessment and Plan - Assessment and Plan (Free Text) Plan: 89 F with PMHx recent PNA, DM, CHF s/p pacemaker 10/2016, CVA, presented with productive cough with SOB x 5 days. (+) orthopnea. CHF vs COPD. CHF, acute on chronic, diastolic - BMP 1010 - baseline 600 - creatinine slightly up from 1 to 1.1 - Lasix 40 IVP BID - K-dur Intermediate trops likely chronic from ventricle stretch - no chest pain - will get 1 more trop today D-Dimer elevated at 541 - CTA: No pulmonary embolus Hx A-fib - Amiodarone 200 mg CAD - on plavix, Crestor S/R/D/w Dr. Roberson
[2017-03-19] MEDS: guaiFENesin 600 mg ER Tab PO SCH ×2 (10:58→17:12)
[2017-03-19] MEDS: Potassium Chloride 20 mEq ER Tab PO SCH (10:58)
[2017-03-19] MEDS: Moxifloxacin IV 400mg/250ml NS 400 MG/250 ML BAG IVPB SCH (11:08)
[2017-03-19] MEDS ORDERED: Potassium Chloride 20 mEq ER Tab PO SCH (12:24)
--- NOTE | 2017-03-19 12:45 | PN ---
DATE: 03/19/2017 The patient's shortness of breath has improved as well as the leg swelling to some degree. PHYSICAL EXAMINATION: VITAL SIGNS: Blood pressure 123/62, heart rate 57, temperature 97.6, respiration 20. HEENT: Normocephalic. NECK: No JVD. CHEST: Diminished breath sounds over the left base. HEART: S1, S2 regular. EXTREMITIES: 1+ pitting edema. LABORATORIES: Hemoglobin and hematocrit 11.7 and 35.5, white count 3.5, platelet count 201,000. Tod ay's potassium 3.7, BUN and creatinine are 20 and 1.1 and glucose is 117. ASSESSMENT: 1. Exacerbation of chronic obstructive lung disease. 2. Left basilar atelectasis. 3. Right-sided heart failure. 4. Pulmonary hypertension. 5. Improved hypokalemia. RECOMMENDATIONS: Continue current hydralazine, oral amiodarone, Crestor, metformin. Reduce K-Dur to 20 mEq once a day and change Lasix to 40 mg orally once a day. The plan is to transfer the patient to TCU at [facility] (formerly [facility]3] today. Tay Chowdhury MD cc: [phone] TT: 03/19/2017 12:44:34 Confirmation # [id number] Dictation # [id number]
--- NOTE | 2017-03-19 15:13 | CP.PCM.PN ---
Subjective - Date & Time of Evaluation Date of Evaluation: 03/19/17 Time of Evaluation: 15:11 - Subjective Subjective: PT SEEN AND EXAMINED TODAY DR REDDY, DR COEPLAND AND DR MONTANEZ, PT D/C TO [facility] TODAY PER THEM, MED REC DONE, PT REMAIN AAOX3, DENIES ANY CP,SOB, RESP EASY AND UNLABORED. NAD, VSS, LUNGS CTA B/L. NO FURTHER ORDERS. Objective - Vital Signs/Intake and Output Vital Signs (last 24 hours): Temp Pulse Resp BP Pulse Ox 97.6 F 57 L 20 113/72 92 L 03/19/17 08:32 03/19/17 12:15 03/19/17 08:32 03/19/17 11:00 03/19/17 12:15 Intake and Output: 03/19/17 03/19/17 06:59 18:59 Intake Total 340 Balance 340 - Medications Medications: Current Medications Albuterol Sulfate (Albuterol 0.042% Inhal Lidia (1.25mg/3ml) Ud) 1.25 mg INH RQID [facility] Last Admin: 03/19/17 12:05 Dose: 1.25 mg Amiodarone HCl (Cordarone) 200 mg PO DAILY [facility] Last Admin: 03/19/17 10:58 Dose: 200 mg Bisoprolol Fumarate (Zebeta) 2.5 mg PO DAILY [facility] Last Admin: 03/19/17 11:02 Dose: Not Given Budesonide (Pulmicort Respules) 0.5 mg INH RQ12 [facility] Last Admin: 03/19/17 07:42 Dose: 0.5 mg Clopidogrel Bisulfate (Plavix) 75 mg PO DAILY [facility] Last Admin: 03/19/17 10:58 Dose: 75 mg Furosemide (Lasix) 40 mg IVP BID [facility] Last Admin: 03/19/17 11:00 Dose: 40 mg Guaifenesin (Mucinex La) 600 mg PO BID [facility] Last Admin: 03/19/17 10:58 Dose: 600 mg Hydralazine HCl (Apresoline) 25 mg PO DAILY [facility] Last Admin: 03/19/17 11:03 Dose: Not Given Moxifloxacin HCl (Avelox Iv 400mg/250ml Ns) 400 mg in 250 mls @ 167 mls/hr IVPB Q24H [facility] Last Admin: 03/19/17 11:08 Dose: 167 mls/hr Insulin Aspart (Novolog) 0 unit SC [facility] PRN Reason: Protocol Last Admin: 03/19/17 13:09 Dose: 1 unit Levothyroxine Sodium (Synthroid) 100 mcg PO DAILY@0630 [facility] Last Admin: 03/19/17 06:00 Dose: 100 mcg Metformin HCl (Glucophage) 500 mg PO BID [facility] Last Admin: 03/19/17 10:58 Dose: 500 mg Montelukast Sodium (Singulair) 10 mg PO [facility] Last Admin: 03/18/17 22:22 Dose: 10 mg Nateglinide (Starlix) 60 mg PO ACTID [facility] Last Admin: 03/19/17 13:08 Dose: 60 mg Potassium Chloride (K-Dur 20 Meq Er Tab) 20 meq PO DAILY [facility] Rosuvastatin Calcium (Crestor) 10 mg PO [facility] Last Admin: 03/18/17 22:22 Dose: 10 mg - Labs Labs: 03/19/17 06:20 03/19/17 06:20 PT 10.7 SECONDS (9.7-12.2) 03/15/17 20:59 INR 1.0 03/15/17 20:59 APTT 27 SECONDS (21-34) 03/16/17 05:07
--- NOTE | 2017-03-19 15:16 | PCM.HF ---
Heart Failure Core Measure - Heart Failure Ejection Fraction: 40 % or Greater (LVEF 85%) SEVERINO Inhibitor Prescribed: No Contraindication/Reason for not providing: RENAL DYSFUNCTION Beta-Yannick Prescribed: Bisoprolol Angiotensin II Receptor Yannick Prescribed: No Contraindication/Reason for not providing: RENAL DYSFUNCTION AnticoagulationTherapy for Atrial Fibrillation/Atrialflutter: No Contraindication/Reason for not providing: NO AFIB Aldosterone Antagonist Prescribed: No Contraindication/Reason for not providing: LVEF >40% Hydralazine Nitrate Prescribed: Yes Implantable Cardioverter Defibrillator Therapy: No Contraindication/Reason for not providing: LVEF >40% Cardiac Resynchronization Therapy Prescribed: No Contraindication/Reason for not providing: LVEF >40% - Follow up Will be discharged to: Care Home Facility Follow Up Date (must be within 7 days from discharge): 03/22/17 Follow Up Time: 09:00
--- NOTE | 2017-03-19 15:20 | CP.PCM.PN ---
Subjective - Date & Time of Evaluation Date of Evaluation: 03/19/17 Time of Evaluation: 09:00 - Subjective Subjective: patient seen and examined. Still complaining of sligh cough and shortness of breath Less swelling of the legs Objective - Vital Signs/Intake and Output Vital Signs (last 24 hours): Temp Pulse Resp BP Pulse Ox 97.6 F 57 L 20 113/72 92 L 03/19/17 08:32 03/19/17 12:15 03/19/17 08:32 03/19/17 11:00 03/19/17 12:15 Intake and Output: 03/19/17 03/19/17 06:59 18:59 Intake Total 340 Balance 340 - Medications Medications: Current Medications Albuterol Sulfate (Albuterol 0.042% Inhal Lidia (1.25mg/3ml) Ud) 1.25 mg INH RQID [facility] Last Admin: 03/19/17 12:05 Dose: 1.25 mg Amiodarone HCl (Cordarone) 200 mg PO DAILY [facility] Last Admin: 03/19/17 10:58 Dose: 200 mg Bisoprolol Fumarate (Zebeta) 2.5 mg PO DAILY [facility] Last Admin: 03/19/17 11:02 Dose: Not Given Budesonide (Pulmicort Respules) 0.5 mg INH RQ12 [facility] Last Admin: 03/19/17 07:42 Dose: 0.5 mg Clopidogrel Bisulfate (Plavix) 75 mg PO DAILY [facility] Last Admin: 03/19/17 10:58 Dose: 75 mg Furosemide (Lasix) 40 mg IVP BID [facility] Last Admin: 03/19/17 11:00 Dose: 40 mg Guaifenesin (Mucinex La) 600 mg PO BID [facility] Last Admin: 03/19/17 10:58 Dose: 600 mg Hydralazine HCl (Apresoline) 25 mg PO DAILY [facility] Last Admin: 03/19/17 11:03 Dose: Not Given Moxifloxacin HCl (Avelox Iv 400mg/250ml Ns) 400 mg in 250 mls @ 167 mls/hr IVPB Q24H [facility] Last Admin: 03/19/17 11:08 Dose: 167 mls/hr Insulin Aspart (Novolog) 0 unit SC ACHS [facility] PRN Reason: Protocol Last Admin: 03/19/17 13:09 Dose: 1 unit Levothyroxine Sodium (Synthroid) 100 mcg PO DAILY@0630 [facility] Last Admin: 03/19/17 06:00 Dose: 100 mcg Metformin HCl (Glucophage) 500 mg PO BID [facility] Last Admin: 03/19/17 10:58 Dose: 500 mg Montelukast Sodium (Singulair) 10 mg PO [facility] Last Admin: 03/18/17 22:22 Dose: 10 mg Nateglinide (Starlix) 60 mg PO ACTID [facility] Last Admin: 03/19/17 13:08 Dose: 60 mg Potassium Chloride (K-Dur 20 Meq Er Tab) 20 meq PO DAILY [facility] Rosuvastatin Calcium (Crestor) 10 mg PO [facility] Last Admin: 03/18/17 22:22 Dose: 10 mg - Labs Labs: 03/19/17 06:20 03/19/17 06:20 PT 10.7 SECONDS (9.7-12.2) 03/15/17 20:59 INR 1.0 03/15/17 20:59 APTT 27 SECONDS (21-34) 03/16/17 05:07 - Head Exam Head Exam: ATRAUMATIC, NORMOCEPHALIC - Eye Exam Eye Exam: Normal appearance - ENT Exam ENT Exam: Mucous Membranes Moist - Neck Exam Neck Exam: Normal Inspection - Respiratory Exam Respiratory Exam: Decreased Breath Sounds - Cardiovascular Exam Cardiovascular Exam: REGULAR RHYTHM - GI/Abdominal Exam GI & Abdominal Exam: Soft, Normal Bowel Sounds - Extremities Exam Extremities Exam: Pedal Edema Assessment and Plan (1) COPD (chronic obstructive pulmonary disease) Status: Acute (2) Chronic congestive heart failure Status: Acute
[2017-03-19 16:32] VITALS: PULSE 65; TEMP 99.1; O2SAT 95
[2017-03-19 16:52] VITALS: BP 111/62
--- NOTE | 2017-03-19 19:25 | DS ---
REASON FOR ADMISSION: This is an 89-year-old [place] female with history of multiple medical proble ms, was admitted for respiratory symptoms and possible clinical pneumonia/congestive heart failure. HOSPITAL COURSE: The patient was admitted to medical telemetry floor and she had a cardiology consul tation done by Dr. Chowdhury. The patient was given Lasix as well as IV antibiotics and her symptoms remarkably improved. The patient was started on physical therapy and discharged to transitional car e unit at [place] for further physical therapy and completion of IV antibiotics and diuretics. FINAL DIAGNOSES: 1. Clinical pneumonia. 2. Congestive heart failure, acute on top of chronic, diastolic. 3. Hyperactive airway with bronchospasm. 4. Type 2 diabetes mellitus. 5. Hypertension. Abisai Miranda Peck MD cc: [phone] TT: 03/19/2017 19:25:04 jn
== END 2017-03-19 17:45 | DRG 291 ==
LOC: C.ER 19:59 → SUPCPDRO 19:59 → C.6T 22:11
PROVIDERS: ADMIT Internal Medicine; ATTEND Internal Medicine
DX: I11.0 Hypertensive heart disease with heart failure (principal); J18.9 Pneumonia, unspecified organism; J44.0 Chronic obstructive pulmonary disease with (acute) lower respiratory infection; I27.2 Other secondary pulmonary hypertension; E11.9 Type 2 diabetes mellitus without complications; I48.0 Paroxysmal atrial fibrillation; J44.1 Chronic obstructive pulmonary disease with (acute) exacerbation; I50.33 Acute on chronic diastolic (congestive) heart failure; E87.6 Hypokalemia; I25.10 Atherosclerotic heart disease of native coronary artery without angina pectoris; E78.5 Hyperlipidemia, unspecified; E78.00 Pure hypercholesterolemia, unspecified; E03.9 Hypothyroidism, unspecified; M06.9 Rheumatoid arthritis, unspecified; Z86.73 Personal history of transient ischemic attack (TIA), and cerebral infarction without residual deficits; Z95.0 Presence of cardiac pacemaker; Z88.0 Allergy status to penicillin; Z79.4 Long term (current) use of insulin; Z87.01 Personal history of pneumonia (recurrent); Z87.891 Personal history of nicotine dependence

== ENCOUNTER 2017-04-30 00:15 | Inpatient (IN) | payer MEDICARE, OTHER ==
[2017-04-30 00:15] VITALS: PULSE 1; BMI 26.4
--- NOTE | 2017-04-30 00:32 | C.PDOC ---
History Of Present Illness A 89 y/o female with a prior Hx of SOB, c/o SOB that has been going on for a couple of weeks. Pt is speaking 5-6 word sentences but denies chest pain, palpitations, N/V/D, fever, chills, cough, lower extremity pain, dizziness, jaw pain, diaphoresis, throat pain, or any other complaints. Pt notes being placed on antifungal medication for a throat fungal infection. Time Seen by Provider: 04/30/17 00:32 Chief Complaint (Nursing): Shortness Of Breath History Per: Patient History/Exam Limitations: no limitations Onset/Duration Of Symptoms: Days Current Symptoms Are (Timing): Still Present Initiating Event: Other Quality: Dull Exacerbating Factor(s): Exertion, Laying Flat Current Respiratory Medications: See Home Med List Severity: Moderate Pain Scale Rating Of: 4 Associated Symptoms: Anxiety. denies: Fever, Chills Reports Recently: Seen In ED, Treated By A Physician, Hospitalized Recent travel outside of the [place]: No Additional History Per: Patient Past Medical History Reviewed: Historical Data, Nursing Documentation, Vital Signs Vital Signs: Last Vital Signs Temp 98.1 F 04/30/17 00:23 Pulse 66 04/30/17 00:23 Resp 26 H 04/30/17 00:32 BP 149/86 04/30/17 00:23 Pulse Ox 91 L 04/30/17 03:13 - Medical History PMH: Arthritis, Atrial Fibrillation, CAD, Cardia Arrhythmia (afib), CHF, COPD, CVA, Diabetes, HTN, Hypercholesterolemia, Hypothyroidism, Pneumonia, Pulmonary Embolism, Rheumatoid Arthritis Denies: Alzheimer's Disease, Anemia, Anxiety, Asthma, Bronchitis, HIV, Hyperthyroidism, Kidney Stones, Multiple Sclerosis Surgical History: Appendectomy, Pacemaker (10/2016) - [facility] Procedures EXERCISE TREATMENT OF MUSCULOSK WHOLE USING ASSIST EQUIPMENT (03/19/17) GAIT TRAINING/AMBULAT TREATMENT USING ASSIST EQUIPMENT (03/19/17) GROOMING/PERSONAL HYGIENE TREATMENT USING ASSIST EQUIPMENT (11/14/16) INSERTION OF INFUSION DEV INTO SUP VENA CAVA, PERC APPROACH (11/14/16) INTRODUCE OF OTH ANTI-INFECT INTO PERIPH VEIN, PERC APPROACH (03/19/17) INTRODUCE OTH ANTI-INFECT IN CENTRAL VEIN, PERC (11/14/16) INTRODUCTION OF ANTI-INFLAM INTO RESP TRACT, VIA OPENING (03/19/17) REPAIR SCALP SKIN, EXTERNAL APPROACH (10/16/15) Family History: States: Unknown Family Hx - Social History Hx Tobacco Use: No Hx Alcohol Use: No Hx Substance Use: No - Immunization History Hx Tetanus Toxoid Vaccination: No Hx Influenza Vaccination: No Hx Pneumococcal Vaccination: No Review Of Systems Except As Marked, All Systems Reviewed And Found Negative. Constitutional: Negative for: Fever, Chills, Sweats Eyes: Negative for: Vision Change ENT: Negative for: Throat Pain Cardiovascular: Positive for: Chest Pain. Negative for: Palpitations Respiratory: Positive for: Shortness of Breath (Speaking 5-6 words a sentence.) . Negative for: Cough Gastrointestinal: Negative for: Nausea, Vomiting, Diarrhea Genitourinary: Negative for: Dysuria Musculoskeletal: Negative for: Leg Pain, Other (jaw pain) Skin: Negative for: Rash Neurological: Negative for: Weakness, Dizziness Psych: Positive for: Anxiety Physical Exam - Physical Exam Appears: Non-toxic, No Acute Distress Skin: Warm, Dry Head: Normacephalic Eye(s): bilateral: Normal Inspection Oral Mucosa: Moist Throat: Normal, No Exudate, No Drooling Neck: Trachea Midline, Supple Chest: Symmetrical Cardiovascular: Rhythm Regular, Other (Pacemaker on the left chest) Respiratory: Rales (Bilateral rales), No Rhonchi, No Wheezing Gastrointestinal/Abdominal: Soft, No Tenderness Back: No CVA Tenderness Extremity: Pedal Edema (Trace pedal edema), Capillary Refill (<2secs) Extremity: Bilateral: Atraumatic, Normal Color And Temperature Pulses: Left Dorsalis Pedis: Normal, Right Dorsalis Pedis: Normal Neurological/Psych: Oriented x3, Normal Speech, Normal Cognition Gait: Steady ED Course And Treatment - Laboratory Results Result Diagrams: 04/30/17 02:35 04/30/17 02:35 ECG: Interpreted By Me, Viewed By Me ECG Rhythm: Sinus Rhythm (65), Nonspecific Changes (av dual paced rhythm) O2 Sat by Pulse Oximetry: 91 Pulse Ox Interpretation: Abnormal - Radiology CXR: Interpreted by Me, Viewed By Me CXR Interpretation: Yes: Infiltrates, Other (pacer, small left effusion, mild vasc congestion,). No: Fracture, Pnemothorax Disposition Discussed With DrFausto: Mingo Peck Comment: accepted the pt on his service and took over the care at 3:28AM Doctor Will See Patient In The: Hospital Counseled Patient/Family Regarding: Studies Performed, Diagnosis - Disposition Disposition: HOSPITALIZED Disposition Time: 00:32 Condition: FAIR - POA Present On Arrival: Poor Glycemic Control - Clinical Impression Clinical Impression: Dyspnea, UTI (urinary tract infection), Dysphagia - Scribe Statement The provider has reviewed the documentation as recorded by the Scribe Chester moss All medical record entries made by the Еленаibe were at my direction and personally dictated by me. I have reviewed the chart and agree that the record accurately reflects my personal performance of the history, physical exam, medical decision making, and the department course for this patient. I have also personally directed, reviewed, and agree with the discharge instructions and disposition. Decision To Admit - Pt Status Changed To: Hospital Disposition Of: Observation - . Bed Request Type: Telemetry Admitting Physician: Mingo Peck Patient Diagnosis: Dyspnea, UTI (urinary tract infection), Dysphagia
[2017-04-30 01:31] LABS: ABG ALLEN TEST POS; DRAW SITE RRADIAL
[2017-04-30 01:38] LABS: RBC URINE 18 /hpf (0-3); URINE BACTERIA FEW (<OCC); URINE BILIRUBIN NEGATIVE (NEGATIVE); URINE BLOOD NEGATIVE (NEGATIVE); URINE COLOR Yellow (YELLOW); URINE GLUCOSE (UA) NORMAL (Normal); URINE KETONE NEGATIVE (NEGATIVE); URINE LEUKOCYTE ESTERASE 1+ Leu/uL (Negative); URINE PROTEIN 2+ mg/dL (NEGATIVE); WBC URINE 23 /hpf (0-5)
[2017-04-30 02:40] LABS: BASO % 0.5 % (0.0-2.0); EOS # 0.1 K/uL (0.0-0.7); EOS % 0.6 % (0.0-4.0); HEMATOCRIT 34.3 % (34.0-47.0); LYMPH % 11.4 % (20.0-40.0); MEAN CELL VOLUME 89.4 fL (81.0-99.0); MEAN CORPUSCULAR HEMOGLOBIN 29.1 pg (27.0-31.0); MEAN CORPUSCULAR HGB CONC 32.5 g/dL (33.0-37.0); MEAN PLATELET VOLUME 7.5 fL (7.2-11.7); MONO # 0.7 K/uL (0.0-0.8); MONO % 8.9 % (0.0-10.0); RED CELL DISTRIBUTION WIDTH 14.6 % (11.5-14.5); WHITE BLOOD COUNT 8.4 K/uL (4.8-10.8)
[2017-04-30 02:45] LABS: INR 1.1
[2017-04-30 03:03] LABS: CHLORIDE 99 mmol/L (98-107); POTASSIUM 3.8 mmol/L (3.6-5.2); SODIUM 138 mmol/L (132-148)
[2017-04-30 03:05] LABS: AST/SGOT 27 U/L (14-36); BILIRUBIN,TOTAL 0.7 mg/dL (0.2-1.3); CARBON DIOXIDE 29 mmol/L (22-30); GFR AFRICAN-AMERICAN > 60
[2017-04-30 03:06] LABS: ALKALINE PHOSPHATASE 92 U/L (38-126); ALT/SGPT 28 U/L (9-52); BLOOD UREA NITROGEN 11 mg/dL (7-17); CALCIUM 8.7 mg/dl (8.6-10.4); GLUCOSE,RANDOM 134 mg/dL (65-105); TOTAL PROTEIN 7.1 g/dL (6.3-8.3)
--- NOTE | 2017-04-30 07:30 | RAD ---
PROCEDURE: CHEST RADIOGRAPH, 1 VIEW HISTORY: Shortness of breath COMPARISON: 03/17/2017 FINDINGS: LUNGS: Biapical pleural thickening with upper lobe granulomatous changes. Diffuse increased interstitial lung markings. Bilateral hilar prominence. Left basilar consolidation with associated trace left pleural effusion. PLEURA: As above. CARDIOVASCULAR: Tortuous ectatic aorta. Left-sided pacemaker. OSSEOUS STRUCTURES: No significant abnormalities. VISUALIZED UPPER ABDOMEN: Normal. OTHER FINDINGS: None. IMPRESSION: Biapical pleural thickening with upper lobe granulomatous changes. Diffuse increased interstitial lung markings. Bilateral hilar prominence. Left basilar consolidation with associated trace left pleural effusion.
[2017-04-30] MEDS: (Novolog) Insulin Aspart, Recombinant 100 u/ml 10 ml vial SC SCH ×4 (08:34→21:48)
--- NOTE | 2017-04-30 11:24 | OP ---
PROCEDURE DATE: 04/30/2017 PREOPERATIVE DIAGNOSIS: Dysphagia. POSTOPERATIVE DIAGNOSIS: Dysphagia. PROCEDURE: Flexible laryngoscopy. SIGNIFICANT FINDINGS: No masses, no lesions, no erythema, no edema. DESCRIPTION OF PROCEDURE: The patient was placed in a seated position. The nose was decongested usi ng Afrin. Flexible laryngoscope was inserted into the left nasal cavity, passed through the nasophar ynx, oropharynx, and hypopharynx. The pharyngeal joel, base of tongue, vallecula, epiglottis, AE fo lds, false cords, true cords, piriform sinuses, and arytenoids were brought into view. No masses or lesions were noted. No erythema or edema was noted. The scope was removed. The patient tolerated t he procedure well. The patient is assessed as having muscle pain causing her throat pain. There are no signs infections , masses, or lesions on exam. Rock Simon MD cc: [phone] TT: 04/30/2017 11:23:17 jn
[2017-04-30] MEDS: Acetaminophen 650mg/20.3ml solution UD PO SCH ×2 (14:45→22:36)
[2017-04-30] MEDS: Albuterol-Ipratrop 3 mg / 0.5 (3 ml) UD IH SCH (16:39)
[2017-04-30] MEDS ORDERED: Fluconazole IV 100mg/50 ml NS 50 ML IVPB SCH (18:00)
[2017-04-30] MEDS ORDERED: Fluconazole IV 200mg/100 ml NS 100 MG in Premixed IV 1 EA IVPB SCH (18:00)
[2017-04-30] MEDS ORDERED: Fluticasone-Salmeterol 250-50mcg Diskus IH SCH (20:00)
[2017-05-01] MEDS: Albuterol-Ipratrop 3 mg / 0.5 (3 ml) UD IH SCH ×3 (01:34→15:51)
[2017-05-01] MEDS: Acetaminophen 650mg/20.3ml solution UD PO SCH (06:05)
[2017-05-01] MEDS: Levothyroxine 100 MCG TAB PO SCH (06:30)
--- NOTE | 2017-05-01 07:08 | CP.PCM.CON ---
<Scotty Stanford - Last Filed: 05/01/17 09:06> History of Present Illness - History of Present Illness History of Present Illness: PGY4 GI Fellow Consult Note Patient is an 89yo [place] female with PMHx significant for diastolic COPD with frequent exacerbations, CHF, CAD, atrial fibrillation not on anticoagulation, prior CVA currently on Plavix, DM, hypothyroidism who presented to the ED for shortness of breath. Our service has been consulted for complaint of dysphagia. The patient presented to the hospital with several days of worsneing SOB, lower extremity edema and dyspnea on exertion. She is currently being treated for an acute COPD/CHF exacerbation with diuresis and inhaled bronchodilators. She states that for the past month she has noted gradually more difficulty eating. Denies any issues with liquids but has trouble swallowing solid foods to the point where she avoids them completely. Patient denies coughing with meals, globus sensation or odynophagia. She had laryngoscopy performed yesterday by Dr Johnson which was unremarkable for any significant findings. Unsure if she has lost any weight. No nausea, vomiting, fever, chills. PMHx: See HPI PSHx: PCI, Cataract surgery, , pacemaker (10/2016) FHx: Mother - DM, HTN Social: Denies tobacco, EtOH or illicit drug use Endo: Denies Review of Systems - Constitutional Constitutional: Anorexia. absent: Chills, Fever - EENT Eyes: absent: Change in Vision Nose/Mouth/Throat: absent: Sore Throat - Cardiovascular Cardiovascular: Dyspnea, Dyspnea on Exertion. absent: Chest Pain - Respiratory Respiratory: Dyspnea. absent: Cough, Excessive Mucous Production - Gastrointestinal Gastrointestinal: Dysphagia. absent: Abdominal Pain, Bloating, Coffee Ground Emesis, Constipation, Cramping, Diarrhea, Dyspepsia, Hematemesis, Hematochezia, Melena, Nausea, Vomiting - Genitourinary Genitourinary: absent: Dysuria, Urinary Frequency, Urinary Urgency - Musculoskeletal Musculoskeletal: absent: Back Pain, Neck Pain - Integumentary Integumentary: absent: New Lesions, Rash - Neurological Neurological: absent: Dizziness, Numbness, Focal Weakness - Psychiatric Psychiatric: absent: Anxiety, Depression - Endocrine Endocrine: absent: Polydipsia, Polyphagia, Polyuria - Hematologic/Lymphatic Hematologic: absent: Easy Bleeding, Easy Bruising, Lymphadenopathy Past Patient History - Infectious Disease Hx of Infectious Diseases: None - Past Medical History & Family History Past Medical History?: Yes - Past Social History Smoking Status: Never Smoked - CARDIAC Hx Congestive Heart Failure: Yes Hx Hypercholesterolemia: Yes Hx Hypertension: Yes - PULMONARY Hx Chronic Obstructive Pulmonary Disease (COPD): Yes - NEUROLOGICAL HX Cerebrovascular Accident: Yes - HEENT Hx Cataracts: Yes - RENAL Hx Kidney Stones: No - ENDOCRINE/METABOLIC Hx Hypothyroidism: Yes - HEMATOLOGICAL/ONCOLOGICAL Hx Anemia: No Hx Human Immunodeficiency Virus (HIV): No - INTEGUMENTARY Hx Dermatological Problems: No Hx Basil Cell: No Hx Gao: No Hx Cellulitis: No Hx Eczema: No Hx Melanoma: No Hx Psoriasis: No Hx Squamous Cell: No - MUSCULOSKELETAL/RHEUMATOLOGICAL Hx Arthritis: Yes Hx Rheumatoid Arthritis: Yes - GASTROINTESTINAL Hx Crohn's Disease: No Hx Diverticulitis: No Hx Gall Bladder Disease: No Hx Gastritis: No Hx Pancreatitis: No - GENITOURINARY/GYNECOLOGICAL Hx Sexually Transmitted Disorders: No - PSYCHIATRIC Hx Anxiety: No Hx Substance Use: No - SURGICAL HISTORY Hx Appendectomy: Yes - ANESTHESIA Hx Anesthesia: Yes Hx Anesthesia Reactions: No Hx Malignant Hyperthermia: No Meds Allergies/Adverse Reactions: Allergies Allergy/AdvReac Type Severity Reaction Status Date / Time Penicillins Allergy RASH Verified 04/30/17 00:30 - Medications Medications: Current Medications Albuterol/Ipratropium (Duoneb 3 Mg/0.5 Mg (3 Ml) Ud) 3 ml IH RQ8 [facility] Last Admin: 05/01/17 01:34 Dose: Not Given Amiodarone HCl (Cordarone) 200 mg PO DAILY [facility] Last Admin: 04/30/17 13:23 Dose: 200 mg Bisoprolol Fumarate (Zebeta) 2.5 mg PO DAILY [facility] Last Admin: 04/30/17 13:23 Dose: 2.5 mg Clopidogrel Bisulfate (Plavix) 75 mg PO DAILY [facility] Last Admin: 04/30/17 11:51 Dose: 75 mg Furosemide (Lasix) 20 mg IVP DAILY [facility] Last Admin: 04/30/17 22:27 Dose: 20 mg Heparin Sodium (Porcine) (Heparin) 5,000 units SC Q12 [facility] Last Admin: 04/30/17 22:28 Dose: 5,000 units Hydralazine HCl (Apresoline) 25 mg PO DAILY [facility] Last Admin: 04/30/17 11:53 Dose: 25 mg Fluconazole (Diflucan Iv 200 Mg/100 Ml Ns) 100 mls @ 100 mls/hr IVPB DAILY [facility] Insulin Aspart (Novolog) 0 unit SC ACHS [facility] PRN Reason: Protocol Last Admin: 04/30/17 21:48 Dose: Not Given Levothyroxine Sodium (Synthroid) 100 mcg PO DAILY@0630 [facility] Metformin HCl (Glucophage) 500 mg PO BID [facility] Last Admin: 04/30/17 17:45 Dose: 500 mg Montelukast Sodium (Singulair) 10 mg PO HS [facility] Last Admin: 04/30/17 22:28 Dose: 10 mg Nateglinide (Starlix) 60 mg PO ACTID [facility] Last Admin: 04/30/17 19:05 Dose: Not Given Rosuvastatin Calcium (Crestor) 10 mg PO [facility] Last Admin: 04/30/17 22:28 Dose: 10 mg Fluticasone/Salmeterol (Advair Diskus 250/50) 1 puff IH RQ12 [facility] Physical Exam - Constitutional Appears: Non-toxic, No Acute Distress - Eye Exam Eye Exam: EOMI, PERRL - ENT Exam ENT Exam: Mucous Membranes Moist - Respiratory Exam Respiratory Exam: Decreased Breath Sounds, Rales. absent: Rhonchi, Wheezes - Cardiovascular Exam Cardiovascular Exam: RRR, +S1, +S2, Systolic Murmur - GI/Abdominal Exam GI & Abdominal Exam: Normal Bowel Sounds, Soft. absent: Distended, Firm, Guarding, Organomegaly, Rigid, Tenderness - Extremities Exam Additional comments: B/L LE edema - Neurological Exam Neurological exam: Alert, Oriented x3 - Psychiatric Exam Psychiatric exam: Normal Affect, Normal Mood - Skin Skin Exam: Dry, Warm Results - Vital Signs Recent Vital Signs: Last Vital Signs Temp 98.6 F 05/01/17 00:00 Pulse 64 05/01/17 00:00 Resp 20 05/01/17 00:00 BP 142/77 04/30/17 22:27 Pulse Ox 95 05/01/17 00:00 - Labs Result Diagrams: 04/30/17 02:35 04/30/17 02:35 Labs: Laboratory Results - last 24 hr 04/30/17 05/01/17 21:24 06:47 POC Glucose (mg/dL) 133 H 130 H Assessment & Plan - Assessment and Plan (Free Text) Assessment: Patient is an 89yo [place] female with PMHx significant for diastolic COPD with frequent exacerbations, CHF, CAD, atrial fibrillation not on anticoagulation, prior CVA currently on Plavix, DM, hypothyroidism who presented to the ED for shortness of breath. Our service is consulted for dysphagia. -Acute exacerbation of COPD -Acute exacerbation of diastolic congestive heart failure -Dysphagia -CAD -H/O CVA, on Plavix -DM -Hypothyroidism Plan: -Recommend medical optimization today with diuretic and bronchodilator therapy -Barium swallow evaluation at 11am -Laryngoscopy report reviewed -NPO past MN -EGD in AM - Date & Time Date: 05/01/17 Time: 07:20 <Joel Medrano - Last Filed: 05/01/17 11:51> Meds - Medications Medications: Current Medications Albuterol/Ipratropium (Duoneb 3 Mg/0.5 Mg (3 Ml) Ud) 3 ml IH RQ8 [facility] Last Admin: 05/01/17 09:59 Dose: 3 ml Amiodarone HCl (Cordarone) 200 mg PO DAILY [facility] Last Admin: 04/30/17 13:23 Dose: 200 mg Bisoprolol Fumarate (Zebeta) 2.5 mg PO DAILY [facility] Last Admin: 04/30/17 13:23 Dose: 2.5 mg Clopidogrel Bisulfate (Plavix) 75 mg PO DAILY [facility] Last Admin: 04/30/17 11:51 Dose: 75 mg Furosemide (Lasix) 20 mg IVP DAILY [facility] Last Admin: 04/30/17 22:27 Dose: 20 mg Heparin Sodium (Porcine) (Heparin) 5,000 units SC Q12 [facility] Last Admin: 05/01/17 10:12 Dose: Not Given Hydralazine HCl (Apresoline) 25 mg PO DAILY [facility] Last Admin: 04/30/17 11:53 Dose: 25 mg Fluconazole (Diflucan Iv 200 Mg/100 Ml Ns) 100 mls @ 100 mls/hr IVPB DAILY [facility] Last Admin: 05/01/17 10:49 Dose: 100 mls/hr Insulin Aspart (Novolog) 0 unit SC ACHS [facility] PRN Reason: Protocol Last Admin: 05/01/17 08:30 Dose: Not Given Levothyroxine Sodium (Synthroid) 100 mcg PO DAILY@0630 [facility] Last Admin: 05/01/17 06:30 Dose: Not Given Metformin HCl (Glucophage) 500 mg PO BID [facility] Last Admin: 05/01/17 10:27 Dose: Not Given Montelukast Sodium (Singulair) 10 mg PO [facility] Last Admin: 04/30/17 22:28 Dose: 10 mg Nateglinide (Starlix) 60 mg PO ACTID [facility] Last Admin: 05/01/17 08:30 Dose: Not Given Rosuvastatin Calcium (Crestor) 10 mg PO [facility] Last Admin: 04/30/17 22:28 Dose: 10 mg Fluticasone/Salmeterol (Advair Diskus 250/50) 1 puff IH RQ12 [facility] Last Admin: 05/01/17 08:04 Dose: 1 puff Results - Vital Signs Recent Vital Signs: Last Vital Signs Temp 98.3 F 05/01/17 07:30 Pulse 66 05/01/17 08:00 Resp 18 05/01/17 07:30 BP 130/68 05/01/17 07:30 Pulse Ox 93 L 05/01/17 07:30 - Labs Result Diagrams: 04/30/17 02:35 04/30/17 02:35 Labs: Laboratory Results - last 24 hr 04/30/17 05/01/17 21:24 06:47 POC Glucose (mg/dL) 133 H 130 H Attending/Attestation - Attestation I have personally seen and examined this patient.: Yes I have fully participated in the care of the patient.: Yes I have reviewed all pertinent clinical information: Yes Notes (Text): 05/01/17 11:44 I have seen and examined patient with GI fellow. Agree with above documentation with the following additions. In brief, this is an 89 year old female with history of COPD, CHF, DM, CAD, paroxysmal atrial fibrillation, CVA on plavix who presents to hospital with complaint of dyspnea. She is currently being treated for CHF exacerbation. GI called for evaluation of dysphagia which she claims has been occuring for the past month. Over the past few days, her dysphagia has become more pronounced and seems to be worse with solid foods. She endorses odynophagia and points to the left side of her neck. Because of this reason she has started to avoid solid food consumption. She denies nausea, vomiting, fever/chills, weight loss, or regurgitation of food product. She recently had ENT evaluation who performed laryngoscopy without any significant findings. No prior endoscopic evaluation. Dyspnea, CHF/COPD exacerbation DM CVA on plavix Dysphagia, unclear etiology, no oropharyngeal abnormalities noted on ENT evaluation. Patient on standing advair therapy for COPD which potentially predisposes her to candidiasis. - Patient scheduled for barium swallow today to evaluate for esophageal motility and rule out obstructive lesion, will follow up results - Continue with medical therapy for CHF/COPD exacerbation - Given new onset dysphagia in elderly patient, must rule out underlying neoplasm and will plan for EGD evaluation tomorrow. Procedure will likely be diagnostic given ongoing use of Plavix. - NPO after midnight
--- NOTE | 2017-05-01 07:17 | HP ---
HISTORY OF PRESENT ILLNESS: The patient is an 89-year-old [place] female with history of multiple m edical problems, presented to Emergency Room with symptoms of shortness of breath over 2 days' duration. The patient was evaluated and was admitted for further management of exacerbation of chronic obstructive pulmonary disease. The patient has been frequently admitted for the same diagno sis over the last year. REVIEW OF SYSTEMS: Other review of systems is positive for dysphagia where the patient has dysphagia /odynophagia. The patient has painful swallowing. Other review of systems is negative. ALLERGIES: No known allergy. HOME MEDICATIONS: Metformin 500 mg twice a day, Crestor 10 mg daily, Starlix 60 mg 3 times a day, Si ngulair 10 mg bedtime daily, levothyroxine 100 mcg daily, Plavix 75 mg daily, bisoprolol 2.5 mg daily , amiodarone 200 mg daily, hydralazine 25 mg 3 times a day. PAST MEDICAL HISTORY: Reports , abuse, hypertension, osteoarthritis, . SOCIAL HISTORY: No history of smoking, ETOH or substance abuse. FAMILY HISTORY: Noncontributory. PHYSICAL EXAMINATION: GENERAL: The patient is in bed, comfortable, not in any cardiopulmonary distress. VITAL SIGNS: Blood pressure , temperature 98.1, respiratory rate 20, and pulse 63. HEENT: Pupils equal, reactive to light. Normal-appearing mucosa of the conjunctivae, oropharyngeal and nasal membrane mucosa. The patient has no . NECK: Supple, no JVD, no carotid bruit, no lymph node, no thyromegaly. CHEST AND LUNGS: Bilateral symmetrical expansion, good air exchange. A few scattered rhonchi. CARDIOVASCULAR: PMI not localized. S1, S2. No additional sounds. ABDOMEN: Normoactive bowel sounds, no tenderness, no organomegaly, no masses. EXTREMITIES: No cyanosis, no edema. CENTRAL NERVOUS SYSTEM: Alert, awake, oriented x 3. No neurological deficits could be appreciated. ASSESSMENT: 1. Exacerbation of chronic obstructive pulmonary disease. 2. Oral thrush and . 3. Biapical pleural thickening with upper lobe granulomatous changes, diffuse increased interstitial lung markings. doctor and her family, constipation appreciated . 4. Odynophagia. 5. Hypotension. 6. Coronary artery disease. 7. . PLAN: instruct patient on mg daily, continue Lasix , patient's home med ications and monitor and Accu-Cheks with insulin coverage as needed. Abisai Miranda Peck MD cc: [phone] TT: 05/01/2017 02:18:57 aydee
[2017-05-01] MEDS: (Novolog) Insulin Aspart, Recombinant 100 u/ml 10 ml vial SC SCH ×4 (08:30→22:35)
--- NOTE | 2017-05-01 10:21 | CP.PCM.CON ---
<Pete Schwartz - Last Filed: 05/01/17 15:51> History of Present Illness - History of Present Illness History of Present Illness: Cardiology consult note for Dr. Roberson Reason for Consult: Palpitations 89 y/o F with PMH of CAD, CHF, COPD, atrial fibrillation, CVA, DM, and hypothyroidism who presented to the ED for SOB for 2 days. Pt states symptoms became gradually worse over a 2 day period. She states she began to notice her legs swelling and she also developed shortness of breath. Pt states she has been taking her medications routinely. Pt has been to the hospital many times for similar complaints of dyspnea in the past. Pt also mentions she has trouble swallowing solid foods for which the GI service is consulted. Today, pt states she is breathing better after being diuresed overnight. She does complain of the swelling in her legs, but she states they are going down. Denies CP, N/V/D, dizziness, headache, fever, chills. PMH: As above Surgical Hx: Pacemaker 10/2016, PCI, Cataract surgery Family Hx: HTN, DM Social Hx: Denies tobacco, alcohol, or illicit drug use Allergies: Penicillin Medication: See MAR Review of Systems - Constitutional Constitutional: Fatigue. absent: Chills, Fever - EENT Eyes: absent: Blurred Vision, Change in Vision - Cardiovascular Cardiovascular: Palpitations. absent: Chest Pain - Respiratory Respiratory: Dyspnea. absent: Cough - Gastrointestinal Gastrointestinal: absent: Diarrhea, Nausea, Vomiting - Genitourinary Genitourinary: absent: Dysuria, Hematuria - Integumentary Integumentary: absent: Lesions, Rash - Neurological Neurological: absent: Numbness, Syncope, Tingling Past Patient History - Infectious Disease Hx of Infectious Diseases: None - Past Medical History & Family History Past Medical History?: Yes - Past Social History Smoking Status: Never Smoked - CARDIAC Hx Congestive Heart Failure: Yes Hx Hypercholesterolemia: Yes Hx Hypertension: Yes - PULMONARY Hx Chronic Obstructive Pulmonary Disease (COPD): Yes - NEUROLOGICAL HX Cerebrovascular Accident: Yes - HEENT Hx Cataracts: Yes - RENAL Hx Kidney Stones: No - ENDOCRINE/METABOLIC Hx Hypothyroidism: Yes - HEMATOLOGICAL/ONCOLOGICAL Hx Anemia: No Hx Human Immunodeficiency Virus (HIV): No - INTEGUMENTARY Hx Dermatological Problems: No Hx Basil Cell: No Hx Gao: No Hx Cellulitis: No Hx Eczema: No Hx Melanoma: No Hx Psoriasis: No Hx Squamous Cell: No - MUSCULOSKELETAL/RHEUMATOLOGICAL Hx Arthritis: Yes Hx Rheumatoid Arthritis: Yes - GASTROINTESTINAL Hx Crohn's Disease: No Hx Diverticulitis: No Hx Gall Bladder Disease: No Hx Gastritis: No Hx Pancreatitis: No - GENITOURINARY/GYNECOLOGICAL Hx Sexually Transmitted Disorders: No - PSYCHIATRIC Hx Anxiety: No Hx Substance Use: No - SURGICAL HISTORY Hx Appendectomy: Yes - ANESTHESIA Hx Anesthesia: Yes Hx Anesthesia Reactions: No Hx Malignant Hyperthermia: No Meds Allergies/Adverse Reactions: Allergies Allergy/AdvReac Type Severity Reaction Status Date / Time Penicillins Allergy RASH Verified 04/30/17 00:30 - Medications Medications: Current Medications Albuterol/Ipratropium (Duoneb 3 Mg/0.5 Mg (3 Ml) Ud) 3 ml IH RQ8 [facility] Last Admin: 05/01/17 09:59 Dose: 3 ml Amiodarone HCl (Cordarone) 200 mg PO DAILY [facility] Last Admin: 04/30/17 13:23 Dose: 200 mg Bisoprolol Fumarate (Zebeta) 2.5 mg PO DAILY [facility] Last Admin: 04/30/17 13:23 Dose: 2.5 mg Clopidogrel Bisulfate (Plavix) 75 mg PO DAILY [facility] Last Admin: 04/30/17 11:51 Dose: 75 mg Furosemide (Lasix) 20 mg IVP DAILY [facility] Last Admin: 04/30/17 22:27 Dose: 20 mg Heparin Sodium (Porcine) (Heparin) 5,000 units SC Q12 [facility] Last Admin: 04/30/17 22:28 Dose: 5,000 units Hydralazine HCl (Apresoline) 25 mg PO DAILY [facility] Last Admin: 04/30/17 11:53 Dose: 25 mg Fluconazole (Diflucan Iv 200 Mg/100 Ml Ns) 100 mls @ 100 mls/hr IVPB DAILY [facility] Insulin Aspart (Novolog) 0 unit SC ACHS [facility] PRN Reason: Protocol Last Admin: 05/01/17 08:30 Dose: Not Given Levothyroxine Sodium (Synthroid) 100 mcg PO DAILY@0630 [facility] Last Admin: 05/01/17 06:30 Dose: Not Given Metformin HCl (Glucophage) 500 mg PO BID [facility] Last Admin: 04/30/17 17:45 Dose: 500 mg Montelukast Sodium (Singulair) 10 mg PO HS [facility] Last Admin: 04/30/17 22:28 Dose: 10 mg Nateglinide (Starlix) 60 mg PO ACTID [facility] Last Admin: 05/01/17 08:30 Dose: Not Given Rosuvastatin Calcium (Crestor) 10 mg PO [facility] Last Admin: 04/30/17 22:28 Dose: 10 mg Fluticasone/Salmeterol (Advair Diskus 250/50) 1 puff IH RQ12 [facility] Last Admin: 05/01/17 08:04 Dose: 1 puff Physical Exam - Constitutional Appears: Well, No Acute Distress - Head Exam Head Exam: ATRAUMATIC, NORMAL INSPECTION, NORMOCEPHALIC - Respiratory Exam Respiratory Exam: Clear to Auscultation Bilateral, NORMAL BREATHING PATTERN. absent: Rales, Rhonchi - Cardiovascular Exam Cardiovascular Exam: RRR, +S1, +S2 - GI/Abdominal Exam GI & Abdominal Exam: Normal Bowel Sounds, Soft. absent: Tenderness - Extremities Exam Extremities exam: Positive for: pedal edema (+2 pitting edema b/l). Negative for: calf tenderness - Neurological Exam Neurological exam: Alert, Oriented x3 - Skin Skin Exam: Intact, Normal Color, Warm Results - Vital Signs Recent Vital Signs: Last Vital Signs Temp 98.6 F 05/01/17 00:00 Pulse 64 05/01/17 00:00 Resp 20 05/01/17 00:00 BP 142/77 04/30/17 22:27 Pulse Ox 95 05/01/17 00:00 - Labs Result Diagrams: 04/30/17 02:35 04/30/17 02:35 Labs: Laboratory Results - last 24 hr 04/30/17 05/01/17 21:24 06:47 POC Glucose (mg/dL) 133 H 130 H Assessment & Plan (1) CHF (congestive heart failure) Assessment and Plan: Recent EF 70% Troponin negative x1 BNP 618 CHF exacerbation unlikely, will continue to diurese Will have pacemaker interrogated Status: Acute <Bee Roberson - Last Filed: 05/02/17 10:14> Meds - Medications Medications: Current Medications Albuterol/Ipratropium (Duoneb 3 Mg/0.5 Mg (3 Ml) Ud) 3 ml IH RQ8 [facility] Last Admin: 05/02/17 07:36 Dose: 3 ml Amiodarone HCl (Cordarone) 200 mg PO DAILY [facility] Last Admin: 05/01/17 14:27 Dose: 200 mg Bisoprolol Fumarate (Zebeta) 2.5 mg PO DAILY [facility] Last Admin: 05/01/17 16:01 Dose: Not Given Clopidogrel Bisulfate (Plavix) 75 mg PO DAILY [facility] Last Admin: 05/01/17 14:28 Dose: 75 mg Furosemide (Lasix) 20 mg IVP DAILY [facility] Last Admin: 05/01/17 12:17 Dose: 20 mg Heparin Sodium (Porcine) (Heparin) 5,000 units SC Q12 [facility] Last Admin: 05/01/17 10:12 Dose: Not Given Hydralazine HCl (Apresoline) 25 mg PO DAILY [facility] Last Admin: 05/01/17 14:29 Dose: 25 mg Fluconazole (Diflucan Iv 200 Mg/100 Ml Ns) 100 mls @ 100 mls/hr IVPB DAILY [facility] Last Admin: 05/01/17 10:49 Dose: 100 mls/hr Insulin Aspart (Novolog) 0 unit SC [facility] PRN Reason: Protocol Last Admin: 05/02/17 08:14 Dose: Not Given Levothyroxine Sodium (Synthroid) 100 mcg PO DAILY@0630 [facility] Last Admin: 05/02/17 05:52 Dose: 100 mcg Metformin HCl (Glucophage) 500 mg PO BID [facility] Last Admin: 05/01/17 18:05 Dose: 500 mg Montelukast Sodium (Singulair) 10 mg PO [facility] Last Admin: 05/01/17 21:43 Dose: 10 mg Nateglinide (Starlix) 60 mg PO ACTID [facility] Last Admin: 05/02/17 08:14 Dose: Not Given Rosuvastatin Calcium (Crestor) 10 mg PO [facility] Last Admin: 05/01/17 21:43 Dose: 10 mg Results - Vital Signs Recent Vital Signs: Last Vital Signs Temp 97 F L 05/02/17 09:35 Pulse 70 05/02/17 09:35 Resp 18 05/02/17 09:35 BP 124/69 05/02/17 09:35 Pulse Ox 98 05/02/17 09:35 - Labs Result Diagrams: 04/30/17 02:35 04/30/17 02:35 Labs: Laboratory Results - last 24 hr 05/01/17 05/01/1717 13:13 21:16 06:53 POC Glucose (mg/dL) 165 H 198 H 180 H Attending/Attestation - Attestation I have personally seen and examined this patient.: Yes I have fully participated in the care of the patient.: Yes I have reviewed all pertinent clinical information: Yes Notes (Text): 05/02/17 10:13 Will continue rate control pt no complaints
[2017-05-01] MEDS: Fluconazole IV 200mg/100 ml NS 100 ML IVPB SCH (10:49)
--- NOTE | 2017-05-01 12:12 | RAD ---
PROCEDURE: Modified barium swallow study. HISTORY: Difficulty swallowing COMPARISON: None available. TECHNIQUE: Under fluoroscopic guidance, barium meals of various consistency were administered to the patient by the speech pathologist. FINDINGS: No penetration or aspiration was observed during this study. IMPRESSION: No penetration or aspiration observed. Please refer to the detailed report and recommendations of the speech pathologist.
--- NOTE | 2017-05-01 16:57 | CP.PCM.CON ---
History of Present Illness - History of Present Illness History of Present Illness: Reason for consultation: shortness of breath and abnormal chest x-ray 89yo [place] female with PMHx significant for diastolic COPD with frequent exacerbations, CHF, CAD, atrial fibrillation, prior CVA, DM, hypothyroidism who presented to the ED for shortness of breath. Patient also complaining of difficulty swallowing solids. Chest x-ray done in the emergency room showed bibasilar infiltrate and pleural thickening which is not much different from previous x-rays. Patient recently was seen by ENT and had fiberoptic laryngoscopy done.. Review of Systems - Review of Systems All systems: reviewed and no additional remarkable complaints except (Shortness of breath and difficulty swallowing) Past Patient History - Infectious Disease Hx of Infectious Diseases: None - Past Medical History & Family History Past Medical History?: Yes - Past Social History Smoking Status: Never Smoked - CARDIAC Hx Congestive Heart Failure: Yes Hx Hypercholesterolemia: Yes Hx Hypertension: Yes - PULMONARY Hx Chronic Obstructive Pulmonary Disease (COPD): Yes - NEUROLOGICAL HX Cerebrovascular Accident: Yes - HEENT Hx Cataracts: Yes - RENAL Hx Kidney Stones: No - ENDOCRINE/METABOLIC Hx Hypothyroidism: Yes - HEMATOLOGICAL/ONCOLOGICAL Hx Anemia: No Hx Human Immunodeficiency Virus (HIV): No - INTEGUMENTARY Hx Dermatological Problems: No Hx Basil Cell: No Hx Gao: No Hx Cellulitis: No Hx Eczema: No Hx Melanoma: No Hx Psoriasis: No Hx Squamous Cell: No - MUSCULOSKELETAL/RHEUMATOLOGICAL Hx Arthritis: Yes Hx Rheumatoid Arthritis: Yes - GASTROINTESTINAL Hx Crohn's Disease: No Hx Diverticulitis: No Hx Gall Bladder Disease: No Hx Gastritis: No Hx Pancreatitis: No - GENITOURINARY/GYNECOLOGICAL Hx Sexually Transmitted Disorders: No - PSYCHIATRIC Hx Anxiety: No Hx Substance Use: No - SURGICAL HISTORY Hx Appendectomy: Yes - ANESTHESIA Hx Anesthesia: Yes Hx Anesthesia Reactions: No Hx Malignant Hyperthermia: No Meds Allergies/Adverse Reactions: Allergies Allergy/AdvReac Type Severity Reaction Status Date / Time Penicillins Allergy RASH Verified 04/30/17 00:30 - Medications Medications: Current Medications Albuterol/Ipratropium (Duoneb 3 Mg/0.5 Mg (3 Ml) Ud) 3 ml IH RQ8 [facility] Last Admin: 05/01/17 15:51 Dose: 3 ml Amiodarone HCl (Cordarone) 200 mg PO DAILY [facility] Last Admin: 05/01/17 14:27 Dose: 200 mg Bisoprolol Fumarate (Zebeta) 2.5 mg PO DAILY [facility] Last Admin: 05/01/17 16:01 Dose: Not Given Clopidogrel Bisulfate (Plavix) 75 mg PO DAILY [facility] Last Admin: 05/01/17 14:28 Dose: 75 mg Furosemide (Lasix) 20 mg IVP DAILY [facility] Last Admin: 05/01/17 12:17 Dose: 20 mg Heparin Sodium (Porcine) (Heparin) 5,000 units SC Q12 [facility] Last Admin: 05/01/17 10:12 Dose: Not Given Hydralazine HCl (Apresoline) 25 mg PO DAILY [facility] Last Admin: 05/01/17 14:29 Dose: 25 mg Fluconazole (Diflucan Iv 200 Mg/100 Ml Ns) 100 mls @ 100 mls/hr IVPB DAILY [facility] Last Admin: 05/01/17 10:49 Dose: 100 mls/hr Insulin Aspart (Novolog) 0 unit SC ACHS [facility] PRN Reason: Protocol Last Admin: 05/01/17 12:30 Dose: Not Given Levothyroxine Sodium (Synthroid) 100 mcg PO DAILY@0630 [facility] Last Admin: 05/01/17 06:30 Dose: Not Given Metformin HCl (Glucophage) 500 mg PO BID [facility] Last Admin: 05/01/17 10:27 Dose: Not Given Montelukast Sodium (Singulair) 10 mg PO [facility] Last Admin: 04/30/17 22:28 Dose: 10 mg Nateglinide (Starlix) 60 mg PO ACTID [facility] Last Admin: 05/01/17 12:30 Dose: Not Given Rosuvastatin Calcium (Crestor) 10 mg PO [facility] Last Admin: 04/30/17 22:28 Dose: 10 mg Fluticasone/Salmeterol (Advair Diskus 250/50) 1 puff IH RQ12 [facility] Last Admin: 05/01/17 08:04 Dose: 1 puff Physical Exam - Head Exam Head Exam: ATRAUMATIC, NORMOCEPHALIC - ENT Exam ENT Exam: Mucous Membranes Moist - Neck Exam Neck exam: Positive for: Full Rom, Normal Inspection - Respiratory Exam Respiratory Exam: Clear to Auscultation Bilateral - Cardiovascular Exam Cardiovascular Exam: Irregular Rhythm - GI/Abdominal Exam GI & Abdominal Exam: Normal Bowel Sounds, Soft - Extremities Exam Extremities exam: Positive for: pedal edema Results - Vital Signs Recent Vital Signs: Last Vital Signs Temp 98.5 F 05/01/17 15:35 Pulse 68 05/01/17 15:35 Resp 20 05/01/17 15:35 BP 108/64 05/01/17 15:35 Pulse Ox 99 05/01/17 15:35 - Labs Result Diagrams: 04/30/17 02:35 04/30/17 02:35 Labs: Laboratory Results - last 24 hr 04/30/17 05/01/17 05/01/17 21:24 06:47 13:13 POC Glucose (mg/dL) 133 H 130 H 165 H Assessment & Plan (1) COPD (chronic obstructive pulmonary disease) Status: Acute Comment: Patient started on Diflucan for Elsie infection most likely secondary to inhaled steroids. Continue nebulizer treatment. Consider CAT scan of the chest (2) Dysphagia Status: Acute
[2017-05-01] MEDS ORDERED: Fluconazole IV 200mg/100 ml NS 100 MG in Premixed IV 1 EA IVPB SCH (18:00)
--- NOTE | 2017-05-01 23:42 | PN ---
DATE: 05/01/2017 SUBJECTIVE: The patient is seen today, 05/01/2017. She still has mild shortness of breath and diffi culty swallowing and painful swelling has improved. The patient also was seen and evaluated by gastr oenterology. PHYSICAL EXAMINATION: VITAL SIGNS: Blood pressure 138/69, temperature 97.7, respiratory rate 18, and pulse 69. HEENT: Pupils equal, reactive to light. Normal-appearing mucosa of the conjunctivae, oropharyngeal and nasal membrane mucosa. NECK: Supple, no JVD, no carotid bruit, no lymph node, no thyromegaly. CHEST AND LUNGS: Bilateral symmetrical expansion, good air exchange, no rales, no rhonchi. CARDIOVASCULAR: PMI not localized. S1, S2. No additional sounds. ABDOMEN: Normoactive bowel sounds, no tenderness, no organomegaly, no masses. EXTREMITIES: No , no edema. CENTRAL NERVOUS SYSTEM: Alert, awake, oriented x 3. No neurological deficits could be appreciated. ASSESSMENT: 1. Exacerbation of chronic obstructive pulmonary disease/chronic bronchitis. 2. Esophageal/pharyngeal candidiasis with difficulty and painful swelling. 3. Coronary artery disease. 4. Hypertension. 5. Hypothyroidism. 6. Type 2 diabetes mellitus. PLAN: Continue Diflucan and we will follow GI recommendations and also, barium swallow that was done today. Mingo Peck MD cc: [phone] TT: 05/01/2017 23:41:35 Confirmation # [id number] Dictation # [id number]
[2017-05-02] MEDS: Levothyroxine 100 MCG TAB PO SCH (05:52)
[2017-05-02] MEDS: Albuterol-Ipratrop 3 mg / 0.5 (3 ml) UD IH SCH ×4 (07:36→23:44)
[2017-05-02] MEDS: (Novolog) Insulin Aspart, Recombinant 100 u/ml 10 ml vial SC SCH ×4 (08:14→21:40)
[2017-05-02] MEDS ORDERED: Propofol 10 mg/ml Inj (20 ML) ONE (08:31)
[2017-05-02] MEDS ORDERED: Lactated Ringer's 500 ML IV ONE ×2 (08:35)
--- NOTE | 2017-05-02 09:00 | CP.PCM.PN ---
<Pete Schwartz - Last Filed: 05/02/17 08:54> Subjective - Date & Time of Evaluation Date of Evaluation: 05/02/17 Time of Evaluation: 08:54 - Subjective Subjective: Progress Note for Dr. Roberson Pt seen and examined at bedside. Pt with no acute overnight events as per nursing. Pt undergoing nebulizer treatment in bed. Pt states it helps her breath easier, but does not help for long period of time. Pt will have EGD today. Denies CP, N/V/D, fever, chills. Objective - Vital Signs/Intake and Output Vital Signs (last 24 hours): Temp Pulse Resp BP Pulse Ox 98.2 F 65 18 141/76 97 05/02/17 08:15 05/02/17 08:15 05/02/17 08:15 05/02/17 08:15 05/02/17 08:15 Intake and Output: 05/02/17 05/02/17 06:59 18:59 Intake Total 240 Balance 240 - Medications Medications: Current Medications Albuterol/Ipratropium (Duoneb 3 Mg/0.5 Mg (3 Ml) Ud) 3 ml IH RQ8 [facility] Last Admin: 05/02/17 07:36 Dose: 3 ml Amiodarone HCl (Cordarone) 200 mg PO DAILY [facility] Last Admin: 05/01/17 14:27 Dose: 200 mg Bisoprolol Fumarate (Zebeta) 2.5 mg PO DAILY [facility] Last Admin: 05/01/17 16:01 Dose: Not Given Clopidogrel Bisulfate (Plavix) 75 mg PO DAILY [facility] Last Admin: 05/01/17 14:28 Dose: 75 mg Furosemide (Lasix) 20 mg IVP DAILY [facility] Last Admin: 05/01/17 12:17 Dose: 20 mg Heparin Sodium (Porcine) (Heparin) 5,000 units SC Q12 [facility] Last Admin: 05/01/17 10:12 Dose: Not Given Hydralazine HCl (Apresoline) 25 mg PO DAILY [facility] Last Admin: 05/01/17 14:29 Dose: 25 mg Fluconazole (Diflucan Iv 200 Mg/100 Ml Ns) 100 mls @ 100 mls/hr IVPB DAILY [facility] Last Admin: 05/01/17 10:49 Dose: 100 mls/hr Insulin Aspart (Novolog) 0 unit SC ACHS [facility] PRN Reason: Protocol Last Admin: 05/02/17 08:14 Dose: Not Given Levothyroxine Sodium (Synthroid) 100 mcg PO DAILY@0630 [facility] Last Admin: 05/02/17 05:52 Dose: 100 mcg Metformin HCl (Glucophage) 500 mg PO BID [facility] Last Admin: 05/01/17 18:05 Dose: 500 mg Montelukast Sodium (Singulair) 10 mg PO [facility] Last Admin: 05/01/17 21:43 Dose: 10 mg Nateglinide (Starlix) 60 mg PO ACTID [facility] Last Admin: 05/02/17 08:14 Dose: Not Given Rosuvastatin Calcium (Crestor) 10 mg PO [facility] Last Admin: 05/01/17 21:43 Dose: 10 mg - Labs Labs: PT 12.2 SECONDS (9.7-12.2) 04/30/17 02:35 INR 1.1 04/30/17 02:35 APTT 29 SECONDS (21-34) 04/30/17 02:35 - Constitutional Appears: Well, No Acute Distress - Head Exam Head Exam: ATRAUMATIC, NORMAL INSPECTION, NORMOCEPHALIC - Respiratory Exam Respiratory Exam: Clear to Ausculation Bilateral, NORMAL BREATHING PATTERN. absent: Rales - Cardiovascular Exam Cardiovascular Exam: RRR, +S1, +S2 - GI/Abdominal Exam GI & Abdominal Exam: Soft, Normal Bowel Sounds. absent: Tenderness - Extremities Exam Extremities Exam: Pedal Edema. absent: Calf Tenderness - Neurological Exam Neurological Exam: Alert, Awake, Oriented x3 - Skin Skin Exam: Intact, Normal Color, Warm Assessment and Plan (1) CHF (congestive heart failure) Assessment & Plan: Pacemaker will be interrogated today Continue current medical regimen Status: Acute <Bee Roberson - Last Filed: 05/02/17 10:13> Objective - Vital Signs/Intake and Output Vital Signs (last 24 hours): Temp Pulse Resp BP Pulse Ox 97 F L 70 18 124/69 98 05/02/17 09:35 05/02/17 09:35 05/02/17 09:35 05/02/17 09:35 05/02/17 09:35 Intake and Output: 05/02/17 05/02/17 06:59 18:59 Intake Total 240 100 Balance 240 100 - Medications Medications: Current Medications Albuterol/Ipratropium (Duoneb 3 Mg/0.5 Mg (3 Ml) Ud) 3 ml IH RQ8 [facility] Last Admin: 05/02/17 07:36 Dose: 3 ml Amiodarone HCl (Cordarone) 200 mg PO DAILY [facility] Last Admin: 05/01/17 14:27 Dose: 200 mg Bisoprolol Fumarate (Zebeta) 2.5 mg PO DAILY [facility] Last Admin: 05/01/17 16:01 Dose: Not Given Clopidogrel Bisulfate (Plavix) 75 mg PO DAILY [facility] Last Admin: 05/01/17 14:28 Dose: 75 mg Furosemide (Lasix) 20 mg IVP DAILY [facility] Last Admin: 05/01/17 12:17 Dose: 20 mg Heparin Sodium (Porcine) (Heparin) 5,000 units SC Q12 [facility] Last Admin: 05/01/17 10:12 Dose: Not Given Hydralazine HCl (Apresoline) 25 mg PO DAILY [facility] Last Admin: 05/01/17 14:29 Dose: 25 mg Fluconazole (Diflucan Iv 200 Mg/100 Ml Ns) 100 mls @ 100 mls/hr IVPB DAILY [facility] Last Admin: 05/01/17 10:49 Dose: 100 mls/hr Insulin Aspart (Novolog) 0 unit SC ACHS [facility] PRN Reason: Protocol Last Admin: 05/02/17 08:14 Dose: Not Given Levothyroxine Sodium (Synthroid) 100 mcg PO DAILY@0630 [facility] Last Admin: 05/02/17 05:52 Dose: 100 mcg Metformin HCl (Glucophage) 500 mg PO BID [facility] Last Admin: 05/01/17 18:05 Dose: 500 mg Montelukast Sodium (Singulair) 10 mg PO HS [facility] Last Admin: 05/01/17 21:43 Dose: 10 mg Nateglinide (Starlix) 60 mg PO ACTID [facility] Last Admin: 05/02/17 08:14 Dose: Not Given Rosuvastatin Calcium (Crestor) 10 mg PO [facility] Last Admin: 05/01/17 21:43 Dose: 10 mg - Labs Labs: PT 12.2 SECONDS (9.7-12.2) 04/30/17 02:35 INR 1.1 04/30/17 02:35 APTT 29 SECONDS (21-34) 04/30/17 02:35 Attending/Attestation - Attestation I have personally seen and examined this patient.: Yes I have fully participated in the care of the patient.: Yes I have reviewed all pertinent clinical information, including history, physical exam and plan: Yes Notes (Text): 05/02/17 10:12 Pt for egd will also interrogate ppm no complaints
[2017-05-02] MEDS: Fluconazole IV 200mg/100 ml NS 100 ML IVPB SCH (10:23)
--- NOTE | 2017-05-02 13:30 | CP.PCM.PN ---
Subjective - Date & Time of Evaluation Date of Evaluation: 05/02/17 Time of Evaluation: 11:25 - Subjective Subjective: Patient seen and examined in the intensive care unit. Status post EGD consistent with gastritis and hiatal hernia On and off shortness of breath Complaining of slight cough Afebrile Objective - Vital Signs/Intake and Output Vital Signs (last 24 hours): Temp Pulse Resp BP Pulse Ox 97.8 F 66 22 123/60 96 05/02/17 10:24 05/02/17 10:24 05/02/17 10:24 05/02/17 10:24 05/02/17 10:24 Intake and Output: 05/02/17 05/02/17 06:59 18:59 Intake Total 240 100 Balance 240 100 - Medications Medications: Current Medications Albuterol/Ipratropium (Duoneb 3 Mg/0.5 Mg (3 Ml) Ud) 3 ml IH RQ8 [facility] Last Admin: 05/02/17 07:36 Dose: 3 ml Amiodarone HCl (Cordarone) 200 mg PO DAILY [facility] Last Admin: 05/02/17 10:23 Dose: 200 mg Bisoprolol Fumarate (Zebeta) 2.5 mg PO DAILY [facility] Last Admin: 05/02/17 10:23 Dose: 2.5 mg Clopidogrel Bisulfate (Plavix) 75 mg PO DAILY [facility] Last Admin: 05/02/17 10:23 Dose: 75 mg Furosemide (Lasix) 20 mg IVP DAILY [facility] Last Admin: 05/02/17 10:24 Dose: 20 mg Heparin Sodium (Porcine) (Heparin) 5,000 units SC Q12 [facility] Last Admin: 05/01/17 10:12 Dose: Not Given Hydralazine HCl (Apresoline) 25 mg PO DAILY [facility] Last Admin: 05/02/17 10:23 Dose: 25 mg Fluconazole (Diflucan Iv 200 Mg/100 Ml Ns) 100 mls @ 100 mls/hr IVPB DAILY [facility] Last Admin: 05/02/17 10:23 Dose: 100 mls/hr Insulin Aspart (Novolog) 0 unit SC ACHS [facility] PRN Reason: Protocol Last Admin: 05/02/17 13:04 Dose: 3 unit Levothyroxine Sodium (Synthroid) 100 mcg PO DAILY@0630 [facility] Last Admin: 05/02/17 05:52 Dose: 100 mcg Metformin HCl (Glucophage) 500 mg PO BID [facility] Last Admin: 05/02/17 10:23 Dose: 500 mg Montelukast Sodium (Singulair) 10 mg PO [facility] Last Admin: 05/01/17 21:43 Dose: 10 mg Nateglinide (Starlix) 60 mg PO ACTID [facility] Last Admin: 05/02/17 08:14 Dose: Not Given Rosuvastatin Calcium (Crestor) 10 mg PO [facility] Last Admin: 05/01/17 21:43 Dose: 10 mg - Labs Labs: PT 12.2 SECONDS (9.7-12.2) 04/30/17 02:35 INR 1.1 04/30/17 02:35 APTT 29 SECONDS (21-34) 04/30/17 02:35 - Constitutional Appears: No Acute Distress - Head Exam Head Exam: ATRAUMATIC, NORMOCEPHALIC - ENT Exam ENT Exam: Mucous Membranes Moist - Neck Exam Neck Exam: Full ROM, Normal Inspection - Respiratory Exam Respiratory Exam: Clear to Ausculation Bilateral - Cardiovascular Exam Cardiovascular Exam: Irregular Rhythm - GI/Abdominal Exam GI & Abdominal Exam: Soft, Normal Bowel Sounds Assessment and Plan (1) COPD (chronic obstructive pulmonary disease) Assessment & Plan: Continue nebulizer treatment Status: Acute (2) Dysphagia Assessment & Plan: Status post EGD with gastritis and hiatal hernia awaiting official report Status: Acute
[2017-05-02 17:34] VITALS: RESP 20
--- NOTE | 2017-05-02 19:10 | PN ---
DATE: 05/02/2017 SUBJECTIVE: The patient is seen today, 05/02/2017. She is status post upper endoscopy that showed ga stritis. PHYSICAL EXAMINATION: VITAL SIGNS: Blood pressure in the 126/ , temperature 98.0, respiratory rate 20, and pulse is 64 . HEENT: Pupils equal, reactive to light. Normal-appearing mucosa of the conjunctivae, oropharyngeal and nasal membrane mucosa. NECK: Supple, no rigidity, no carotid bruit, no lymph node, no thyromegaly. CHEST AND LUNGS: Bilateral symmetric expansion, good air exchange, no rales, no rhonchi. CARDIOVASCULAR: PMI not localized. S1, S2. No additional sounds. ABDOMEN: Normoactive bowel sounds. No tenderness. No organomegaly. No masses. EXTREMITIES: No cyanosis, no clubbing, no edema. CENTRAL NERVOUS SYSTEM: Alert, awake, oriented x 3. No neurological deficits could be appreciated. ASSESSMENT: 1. Difficulty/painful swallowing secondary to . 2. Hypertension. 3. Hypothyroidism. 4. Exacerbation of chronic obstructive pulmonary disease. PLAN: Continue current Diflucan and recommendations of gastroenterology . Mingo Peck MD cc: 167 TT: 05/02/2017 19:09:39 Confirmation # [id number] Dictation # [id number]
--- NOTE | 2017-05-02 20:55 | CT ---
EXAM: CT Chest Without Intravenous Contrast CLINICAL HISTORY: 89 years old, female; Signs and symptoms; Other: Pneumonia TECHNIQUE: Axial computed tomography images of the chest without intravenous contrast. This CT exam was performed using one or more of the following dose reduction techniques: automated exposure control, adjustment of the mA and/or kV according to patient size, and/or use of iterative reconstruction technique. Coronal and sagittal reformatted images were created and reviewed. EXAM DATE/TIME: Exam ordered 05/02/2017 6:45 PM COMPARISON: CT - ANGIO CHEST PE PROTOCOL 10/29/2016 3:49:21 PM FINDINGS: Lungs: Coarse linear densities in the left lower lobe and lingula suggests discoid atelectasis or scar. Mild emphysema of the centrilobular type is noted in the upper lung marino bilaterally. Scattered areas of mosaic perfusion abnormality are noted. Pleural space: Unremarkable. No pneumothorax. No significant effusion. Heart: Unremarkable. No cardiomegaly. No significant pericardial effusion. Bones/joints: Degenerative changes are noted of the thoracic spine. There is partial fusion of the 3 adjacent mid thoracic vertebral bodies. No acute fracture. No dislocation. Soft tissues: Unremarkable. Vasculature: Unremarkable. No thoracic aortic aneurysm. Lymph nodes: Unremarkable. No enlarged lymph nodes. Liver: Punctate calcifications are noted within the liver. Gallbladder and bile ducts: Gallstones are seen in the gallbladder. Spleen: A 9 mm splenule is noted along the inferior aspect of the spleen. Tubes, lines and devices: Beam hardening artifact is noted at the level of the heart induced by the pacemaker wires. There is a dual chamber pacemaker via left subclavian approach. IMPRESSION: 1. Scarring within the left lower lobe and lingula. 2. Scattered areas of mosaic perfusion abnormality noted predominantly in the mid and lower lung marino. Differential diagnostic considerations include air trapping, pulmonary artery hypertension or small airways disease. 3. Gallstones 4. Centrilobular type emphysema 5. Scattered punctate calcifications within the liver suggest previous granulomatous disease.
--- NOTE | 2017-05-03 00:51 | CARD ---
APPROVED REPORT EKG Measurement Heart [id number] <Conclusion> AV dual-paced rhythm with prolonged AV conduction Abnormal ECG
[2017-05-03] MEDS: Levothyroxine 100 MCG TAB PO SCH (06:41)
[2017-05-03] MEDS: Albuterol-Ipratrop 3 mg / 0.5 (3 ml) UD IH SCH ×3 (07:44→23:57)
[2017-05-03] MEDS: (Novolog) Insulin Aspart, Recombinant 100 u/ml 10 ml vial SC SCH ×4 (08:02→22:07)
--- NOTE | 2017-05-03 08:32 | CP.PCM.PN ---
<Scotty Stanford - Last Filed: 05/03/17 08:32> Subjective - Date & Time of Evaluation Date of Evaluation: 05/03/17 Time of Evaluation: 06:40 - Subjective Subjective: PGY4 GI Fellow Progress Note Patient seen and examined bedside this morning. The patient admits to SOB and cough which persist. States she does not care for the hospital's food and therefore isn't eating very much. No issues overnight. 12 system ROS performed and negative except where stated. Objective - Vital Signs/Intake and Output Vital Signs (last 24 hours): Temp Pulse Resp BP Pulse Ox 98.0 F 65 20 124/78 98 05/03/17 08:25 05/03/17 08:25 05/03/17 08:25 05/03/17 08:25 05/03/17 08:25 - Medications Medications: Current Medications Albuterol/Ipratropium (Duoneb 3 Mg/0.5 Mg (3 Ml) Ud) 3 ml IH RQ8 [facility] Last Admin: 05/03/17 07:44 Dose: 3 ml Amiodarone HCl (Cordarone) 200 mg PO DAILY [facility] Last Admin: 05/02/17 10:23 Dose: 200 mg Bisoprolol Fumarate (Zebeta) 2.5 mg PO DAILY [facility] Last Admin: 05/02/17 10:23 Dose: 2.5 mg Clopidogrel Bisulfate (Plavix) 75 mg PO DAILY [facility] Last Admin: 05/02/17 10:23 Dose: 75 mg Furosemide (Lasix) 20 mg IVP DAILY [facility] Last Admin: 05/02/17 10:24 Dose: 20 mg Heparin Sodium (Porcine) (Heparin) 5,000 units SC Q12 [facility] Last Admin: 05/02/17 22:00 Dose: 5,000 units Hydralazine HCl (Apresoline) 25 mg PO DAILY [facility] Last Admin: 05/02/17 10:23 Dose: 25 mg Fluconazole (Diflucan Iv 200 Mg/100 Ml Ns) 100 mls @ 100 mls/hr IVPB DAILY [facility] Last Admin: 05/02/17 10:23 Dose: 100 mls/hr Insulin Aspart (Novolog) 0 unit SC ACHS [facility] PRN Reason: Protocol Last Admin: 05/03/17 08:02 Dose: Not Given Levothyroxine Sodium (Synthroid) 100 mcg PO DAILY@0630 [facility] Last Admin: 05/03/17 06:41 Dose: 100 mcg Metformin HCl (Glucophage) 500 mg PO BID [facility] Last Admin: 05/02/17 17:48 Dose: 500 mg Montelukast Sodium (Singulair) 10 mg PO [facility] Last Admin: 05/02/17 22:01 Dose: 10 mg Nateglinide (Starlix) 60 mg PO ACTID [facility] Last Admin: 05/03/17 06:42 Dose: 60 mg Rosuvastatin Calcium (Crestor) 10 mg PO [facility] Last Admin: 05/02/17 22:01 Dose: 10 mg - Labs Labs: PT 12.2 SECONDS (9.7-12.2) 04/30/17 02:35 INR 1.1 04/30/17 02:35 APTT 29 SECONDS (21-34) 04/30/17 02:35 - Constitutional Appears: Non-toxic, No Acute Distress - Eye Exam Eye Exam: EOMI, PERRL - ENT Exam ENT Exam: Mucous Membranes Moist - Respiratory Exam Respiratory Exam: Rales. absent: Clear to Ausculation Bilateral, Rhonchi, Wheezes - Cardiovascular Exam Cardiovascular Exam: RRR, +S1, +S2 - GI/Abdominal Exam GI & Abdominal Exam: Soft, Normal Bowel Sounds. absent: Distended, Firm, Guarding, Rigid, Tenderness, Organomegaly - Extremities Exam Extremities Exam: Normal Inspection. absent: Pedal Edema - Neurological Exam Neurological Exam: Alert, Awake, Oriented x3 - Psychiatric Exam Psychiatric exam: Normal Affect, Normal Mood - Skin Skin Exam: Dry, Warm Assessment and Plan - Assessment and Plan (Free Text) Assessment: Patient is an 89yo [place]i female with PMHx significant for diastolic CHF, COPD with frequent exacerbations, CHF, CAD, atrial fibrillation not on anticoagulation, prior CVA currently on Plavix, DM, hypothyroidism who presented to the ED for shortness of breath. Our service is consulted for dysphagia. -Acute exacerbation of COPD -Diastolic congestive heart failure -Esophagitis, suspect reflux esophagitis -Hiatal hernia -CAD -H/O CVA, on Plavix -DM -Hypothyroidism Plan: -Unremarkable barium swallow evaluation -EGD showing hiatal hernia, esophagitis; no etiology for described dysphagia identified -Patient should eat 6 small meals daily, soft diet -Pantoprazole 40mg PO QAMAC for 3 months -Await EGD biopsies -Will sign off. Thank you for allowing us to participate in the care of your patient. <Freddy Gomez - Last Filed: 05/03/17 19:22> Objective - Vital Signs/Intake and Output Vital Signs (last 24 hours): Temp Pulse Resp BP Pulse Ox 97.8 F 65 20 105/66 96 05/03/17 15:58 05/03/17 15:58 05/03/17 15:58 05/03/17 15:58 05/03/17 15:58 Intake and Output: 05/03/17 05/04/17 18:59 06:59 Intake Total 400 Balance 400 - Medications Medications: Current Medications Albuterol/Ipratropium (Duoneb 3 Mg/0.5 Mg (3 Ml) Ud) 3 ml IH RQ8 [facility] Last Admin: 05/03/17 15:48 Dose: 3 ml Amiodarone HCl (Cordarone) 200 mg PO DAILY [facility] Last Admin: 05/03/17 10:10 Dose: 200 mg Bisoprolol Fumarate (Zebeta) 2.5 mg PO DAILY [facility] Last Admin: 05/03/17 10:10 Dose: 2.5 mg Clopidogrel Bisulfate (Plavix) 75 mg PO DAILY [facility] Last Admin: 05/03/17 10:09 Dose: 75 mg Furosemide (Lasix) 20 mg IVP DAILY [facility] Last Admin: 05/03/17 10:10 Dose: 20 mg Heparin Sodium (Porcine) (Heparin) 5,000 units SC Q12 [facility] Last Admin: 05/03/17 10:08 Dose: 5,000 units Hydralazine HCl (Apresoline) 25 mg PO DAILY [facility] Last Admin: 05/03/17 10:08 Dose: 25 mg Fluconazole (Diflucan Iv 200 Mg/100 Ml Ns) 100 mls @ 100 mls/hr IVPB DAILY [facility] Last Admin: 05/03/17 10:07 Dose: 100 mls/hr Insulin Aspart (Novolog) 0 unit SC ACHS [facility] PRN Reason: Protocol Last Admin: 05/03/17 17:25 Dose: Not Given Levothyroxine Sodium (Synthroid) 100 mcg PO DAILY@0630 [facility] Last Admin: 05/03/17 06:41 Dose: 100 mcg Metformin HCl (Glucophage) 500 mg PO BID [facility] Last Admin: 05/03/17 17:22 Dose: 500 mg Montelukast Sodium (Singulair) 10 mg PO HS [facility] Last Admin: 05/02/17 22:01 Dose: 10 mg Nateglinide (Starlix) 60 mg PO ACTID [facility] Last Admin: 05/03/17 17:23 Dose: 60 mg Pantoprazole Sodium (Protonix Ec Tab) 40 mg PO ACB [facility] Last Admin: 05/03/17 10:12 Dose: Not Given Rosuvastatin Calcium (Crestor) 10 mg PO HS [facility] Last Admin: 05/02/17 22:01 Dose: 10 mg - Labs Labs: PT 12.2 SECONDS (9.7-12.2) 04/30/17 02:35 INR 1.1 04/30/17 02:35 APTT 29 SECONDS (21-34) 04/30/17 02:35 Attending/Attestation - Attestation I have personally seen and examined this patient.: Yes I have fully participated in the care of the patient.: Yes I have reviewed all pertinent clinical information, including history, physical exam and plan: Yes Notes (Text): 05/03/17 19:21 89 year old female with history of COPD, CHF, DM, CAD, paroxysmal atrial fibrillation, CVA on plavix who presents to hospital with complaint of dyspnea, also with dysphagia. 1. Dysphagia Plan: -s/p EGD, unremarkable -no evidence of malignancy -recommend dysphagia diet/soft diet -small frequent meals -will sign off at this time
--- NOTE | 2017-05-03 09:03 | CP.PCM.PN ---
<Pete Schwartz - Last Filed: 05/03/17 08:59> Subjective - Date & Time of Evaluation Date of Evaluation: 05/03/17 Time of Evaluation: 08:59 - Subjective Subjective: Progress Note for Dr. Roberson Pt seen and examined at bedside. Pt doing well overnight with no acute events. Pt underwent EGD yesterday. Pt complaining about food this morning. No difficulty breathing, pt able to walk around floor. Denies CP, SOB, N/V/D. Objective - Vital Signs/Intake and Output Vital Signs (last 24 hours): Temp Pulse Resp BP Pulse Ox 98.0 F 65 20 124/78 98 05/03/17 08:25 05/03/17 08:25 05/03/17 08:25 05/03/17 08:25 05/03/17 08:25 - Medications Medications: Current Medications Albuterol/Ipratropium (Duoneb 3 Mg/0.5 Mg (3 Ml) Ud) 3 ml IH RQ8 [facility] Last Admin: 05/03/17 07:44 Dose: 3 ml Amiodarone HCl (Cordarone) 200 mg PO DAILY [facility] Last Admin: 05/02/17 10:23 Dose: 200 mg Bisoprolol Fumarate (Zebeta) 2.5 mg PO DAILY [facility] Last Admin: 05/02/17 10:23 Dose: 2.5 mg Clopidogrel Bisulfate (Plavix) 75 mg PO DAILY [facility] Last Admin: 05/02/17 10:23 Dose: 75 mg Furosemide (Lasix) 20 mg IVP DAILY [facility] Last Admin: 05/02/17 10:24 Dose: 20 mg Heparin Sodium (Porcine) (Heparin) 5,000 units SC Q12 [facility] Last Admin: 05/02/17 22:00 Dose: 5,000 units Hydralazine HCl (Apresoline) 25 mg PO DAILY [facility] Last Admin: 05/02/17 10:23 Dose: 25 mg Fluconazole (Diflucan Iv 200 Mg/100 Ml Ns) 100 mls @ 100 mls/hr IVPB DAILY [facility] Last Admin: 05/02/17 10:23 Dose: 100 mls/hr Insulin Aspart (Novolog) 0 unit SC ACHS [facility] PRN Reason: Protocol Last Admin: 05/03/17 08:02 Dose: Not Given Levothyroxine Sodium (Synthroid) 100 mcg PO DAILY@0630 [facility] Last Admin: 05/03/17 06:41 Dose: 100 mcg Metformin HCl (Glucophage) 500 mg PO BID [facility] Last Admin: 05/02/17 17:48 Dose: 500 mg Montelukast Sodium (Singulair) 10 mg PO [facility] Last Admin: 05/02/17 22:01 Dose: 10 mg Nateglinide (Starlix) 60 mg PO ACTID [facility] Last Admin: 05/03/17 06:42 Dose: 60 mg Pantoprazole Sodium (Protonix Ec Tab) 40 mg PO ACB [facility] Rosuvastatin Calcium (Crestor) 10 mg PO [facility] Last Admin: 05/02/17 22:01 Dose: 10 mg - Labs Labs: PT 12.2 SECONDS (9.7-12.2) 04/30/17 02:35 INR 1.1 04/30/17 02:35 APTT 29 SECONDS (21-34) 04/30/17 02:35 - Constitutional Appears: Well, No Acute Distress - Head Exam Head Exam: ATRAUMATIC, NORMAL INSPECTION, NORMOCEPHALIC - Respiratory Exam Respiratory Exam: Clear to Ausculation Bilateral, NORMAL BREATHING PATTERN. absent: Rales - Cardiovascular Exam Cardiovascular Exam: RRR, +S1, +S2 - GI/Abdominal Exam GI & Abdominal Exam: Soft, Normal Bowel Sounds. absent: Tenderness - Extremities Exam Extremities Exam: Pedal Edema. absent: Calf Tenderness - Neurological Exam Neurological Exam: Alert, Awake, Oriented x3 - Skin Skin Exam: Intact, Normal Color, Warm Assessment and Plan (1) CHF (congestive heart failure) Assessment & Plan: Pacemaker interrogated yesterday and showed no abnormalities Pt will continue current medical regimen Status: Acute <Bee Roberson A - Last Filed: 05/03/17 09:32> Objective - Vital Signs/Intake and Output Vital Signs (last 24 hours): Temp Pulse Resp BP Pulse Ox 98.0 F 65 20 124/78 98 05/03/17 08:25 05/03/17 08:25 05/03/17 08:25 05/03/17 08:25 05/03/17 08:25 - Medications Medications: Current Medications Albuterol/Ipratropium (Duoneb 3 Mg/0.5 Mg (3 Ml) Ud) 3 ml IH RQ8 [facility] Last Admin: 05/03/17 07:44 Dose: 3 ml Amiodarone HCl (Cordarone) 200 mg PO DAILY [facility] Last Admin: 05/02/17 10:23 Dose: 200 mg Bisoprolol Fumarate (Zebeta) 2.5 mg PO DAILY [facility] Last Admin: 05/02/17 10:23 Dose: 2.5 mg Clopidogrel Bisulfate (Plavix) 75 mg PO DAILY [facility] Last Admin: 05/02/17 10:23 Dose: 75 mg Furosemide (Lasix) 20 mg IVP DAILY [facility] Last Admin: 05/02/17 10:24 Dose: 20 mg Heparin Sodium (Porcine) (Heparin) 5,000 units SC Q12 [facility] Last Admin: 05/02/17 22:00 Dose: 5,000 units Hydralazine HCl (Apresoline) 25 mg PO DAILY [facility] Last Admin: 05/02/17 10:23 Dose: 25 mg Fluconazole (Diflucan Iv 200 Mg/100 Ml Ns) 100 mls @ 100 mls/hr IVPB DAILY [facility] Last Admin: 05/02/17 10:23 Dose: 100 mls/hr Insulin Aspart (Novolog) [address] [facility] PRN Reason: Protocol Last Admin: 05/03/17 08:02 Dose: Not Given Levothyroxine Sodium (Synthroid) 100 mcg PO DAILY@0630 [facility] Last Admin: 05/03/17 06:41 Dose: 100 mcg Metformin HCl (Glucophage) 500 mg PO BID [facility] Last Admin: 05/02/17 17:48 Dose: 500 mg Montelukast Sodium (Singulair) 10 mg PO HS [facility] Last Admin: 05/02/17 22:01 Dose: 10 mg Nateglinide (Starlix) 60 mg PO ACTID [facility] Last Admin: 05/03/17 06:42 Dose: 60 mg Pantoprazole Sodium (Protonix Ec Tab) 40 mg PO ACB [facility] Rosuvastatin Calcium (Crestor) 10 mg PO HS [facility] Last Admin: 05/02/17 22:01 Dose: 10 mg - Labs Labs: PT 12.2 SECONDS (9.7-12.2) 04/30/17 02:35 INR 1.1 04/30/17 02:35 APTT 29 SECONDS (21-34) 04/30/17 02:35 Attending/Attestation - Attestation I have personally seen and examined this patient.: Yes I have fully participated in the care of the patient.: Yes I have reviewed all pertinent clinical information, including history, physical exam and plan: Yes Notes (Text): 05/03/17 09:32 no events on ppm s/p endoscopy
[2017-05-03] MEDS: Fluconazole IV 200mg/100 ml NS 100 ML IVPB SCH (10:07)
[2017-05-03] MEDS: Pantoprazole 40 mg EC Tab PO SCH ×2 (10:08→10:12)
--- NOTE | 2017-05-03 10:57 | PN ---
DATE: 05/03/2017 This patient is seen today, 05/03/2017. She is less short of breath and swallowing has improved. PHYSICAL EXAMINATION: VITAL SIGNS: Blood pressure is 115/68, temperature 98.0, respiratory rate 20, and pulse 64. HEENT: Pupils equal, reactive to light. Normal-appearing mucosa of the conjunctivae, oropharyngeal, nasal membrane mucosa. NECK: Supple, no JVD, no carotid bruit, no lymph node, no thyromegaly. CHEST AND LUNGS: Bilateral symmetrical expansion, good air exchange, no rales. The patient has scat tered rhonchi both lung marino. CARDIOVASCULAR: PMI not localized. S1, S2. No additional sounds. ABDOMEN: Normoactive bowel sounds, no tenderness, no organomegaly, no masses. EXTREMITIES: No cyanosis, no clubbing, no edema. CENTRAL NERVOUS SYSTEM: Alert, awake, oriented x 3. No neurological deficits could be appreciated e xcept for dysfunctional gait. ASSESSMENT: 1. Oropharyngeal candidiasis, responding well to Diflucan. 2. Exacerbation of chronic obstructive pulmonary disease. 3. Hypertension. 4. Hypothyroidism. 5. Type 2 diabetes mellitus. PLAN: Continue current management and follow recommendations of icing coater. We also will review the CAT scan of the chest done last night. Mingo Peck MD cc: [id number] TT: 05/03/2017 10:57:26 Confirmation # [id number] Dictation # [id number]
[2017-05-04] MEDS: Levothyroxine 100 MCG TAB PO SCH (05:52)
[2017-05-04] MEDS: (Novolog) Insulin Aspart, Recombinant 100 u/ml 10 ml vial SC SCH ×2 (07:17→13:26)
[2017-05-04] MEDS: Albuterol-Ipratrop 3 mg / 0.5 (3 ml) UD IH SCH ×2 (08:00→15:44)
[2017-05-04] MEDS: Pantoprazole 40 mg EC Tab PO SCH (08:34)
--- NOTE | 2017-05-04 10:30 | CP.PCM.PN ---
Subjective - Date & Time of Evaluation Date of Evaluation: 05/04/17 Time of Evaluation: 08:45 - Subjective Subjective: patient seen and examined. Lying comfortably in no acute distress, but complaining of cough and dyspnea on minimal exertion Status post EGD consistent with esophagitis and hiatal hernia Continue nebulizer treatment and resume inhaled steroid Objective - Vital Signs/Intake and Output Vital Signs (last 24 hours): Temp Pulse Resp BP Pulse Ox 98.3 F 64 20 138/83 96 05/04/17 07:12 05/04/17 07:12 05/04/17 07:12 05/04/17 07:12 05/04/17 07:12 Intake and Output: 05/04/17 05/04/17 06:59 18:59 Intake Total 400 200 Balance 400 200 - Medications Medications: Current Medications Albuterol/Ipratropium (Duoneb 3 Mg/0.5 Mg (3 Ml) Ud) 3 ml IH RQ8 [facility] Last Admin: 05/04/17 08:00 Dose: 3 ml Amiodarone HCl (Cordarone) 200 mg PO DAILY [facility] Last Admin: 05/03/17 10:10 Dose: 200 mg Bisoprolol Fumarate (Zebeta) 2.5 mg PO DAILY [facility] Last Admin: 05/03/17 10:10 Dose: 2.5 mg Clopidogrel Bisulfate (Plavix) 75 mg PO DAILY [facility] Last Admin: 05/03/17 10:09 Dose: 75 mg Furosemide (Lasix) 20 mg IVP DAILY [facility] Last Admin: 05/03/17 10:10 Dose: 20 mg Heparin Sodium (Porcine) (Heparin) 5,000 units SC Q12 [facility] Last Admin: 05/03/17 22:07 Dose: 5,000 units Hydralazine HCl (Apresoline) 25 mg PO DAILY [facility] Last Admin: 05/03/17 10:08 Dose: 25 mg Fluconazole (Diflucan Iv 200 Mg/100 Ml Ns) 100 mls @ 100 mls/hr IVPB DAILY [facility] Last Admin: 05/03/17 10:07 Dose: 100 mls/hr Insulin Aspart (Novolog) 0 unit SC ACHS [facility] PRN Reason: Protocol Last Admin: 05/04/17 07:17 Dose: Not Given Levothyroxine Sodium (Synthroid) 100 mcg PO DAILY@0630 [facility] Last Admin: 05/04/17 05:52 Dose: 100 mcg Metformin HCl (Glucophage) 500 mg PO BID [facility] Last Admin: 05/03/17 17:22 Dose: 500 mg Montelukast Sodium (Singulair) 10 mg PO HS [facility] Last Admin: 05/03/17 22:07 Dose: 10 mg Nateglinide (Starlix) 60 mg PO ACTID [facility] Last Admin: 05/04/17 08:35 Dose: 60 mg Pantoprazole Sodium (Protonix Ec Tab) 40 mg PO ACB [facility] Last Admin: 05/04/17 08:34 Dose: 40 mg Rosuvastatin Calcium (Crestor) 10 mg PO HS [facility] Last Admin: 05/03/17 22:07 Dose: 10 mg - Labs Labs: PT 12.2 SECONDS (9.7-12.2) 04/30/17 02:35 INR 1.1 04/30/17 02:35 APTT 29 SECONDS (21-34) 04/30/17 02:35 Assessment and Plan (1) COPD (chronic obstructive pulmonary disease) Status: Acute (2) Dysphagia Status: Acute
[2017-05-04] MEDS: Fluconazole IV 200mg/100 ml NS 100 ML IVPB SCH (11:01)
--- NOTE | 2017-05-04 11:43 | CP.PCM.PN ---
<Pete Schwartz - Last Filed: 05/04/17 11:40> Subjective - Date & Time of Evaluation Date of Evaluation: 05/04/17 Time of Evaluation: 11:40 - Subjective Subjective: Progress Note for Dr. Roberson Pt seen and examined at bedside. Pt with no acute events overnight as per nursing. Pt states she feels better and is ready to go home. Denies CP, SOB, N/V /D. Objective - Vital Signs/Intake and Output Vital Signs (last 24 hours): Temp Pulse Resp BP Pulse Ox 98.3 F 64 20 136/79 96 05/04/17 07:12 05/04/17 07:12 05/04/17 07:12 05/04/17 11:00 05/04/17 07:12 Intake and Output: 05/04/17 05/04/17 06:59 18:59 Intake Total 400 200 Balance 400 200 - Medications Medications: Current Medications Albuterol/Ipratropium (Duoneb 3 Mg/0.5 Mg (3 Ml) Ud) 3 ml IH RQ8 [facility] Last Admin: 05/04/17 08:00 Dose: 3 ml Amiodarone HCl (Cordarone) 200 mg PO DAILY [facility] Last Admin: 05/04/17 10:59 Dose: 200 mg Bisoprolol Fumarate (Zebeta) 2.5 mg PO DAILY [facility] Last Admin: 05/04/17 10:58 Dose: 2.5 mg Clopidogrel Bisulfate (Plavix) 75 mg PO DAILY [facility] Last Admin: 05/04/17 11:00 Dose: 75 mg Furosemide (Lasix) 20 mg IVP DAILY [facility] Last Admin: 05/04/17 11:00 Dose: 20 mg Heparin Sodium (Porcine) (Heparin) 5,000 units SC Q12 [facility] Last Admin: 05/04/17 11:00 Dose: 5,000 units Hydralazine HCl (Apresoline) 25 mg PO DAILY [facility] Last Admin: 05/04/17 11:00 Dose: 25 mg Fluconazole (Diflucan Iv 200 Mg/100 Ml Ns) 100 mls @ 100 mls/hr IVPB DAILY [facility] Last Admin: 05/04/17 11:01 Dose: 100 mls/hr Insulin Aspart (Novolog) 0 unit SC ACHS [facility] PRN Reason: Protocol Last Admin: 05/04/17 07:17 Dose: Not Given Levothyroxine Sodium (Synthroid) 100 mcg PO DAILY@0630 [facility] Last Admin: 05/04/17 05:52 Dose: 100 mcg Metformin HCl (Glucophage) 500 mg PO BID [facility] Last Admin: 05/04/17 11:01 Dose: 500 mg Montelukast Sodium (Singulair) 10 mg PO [facility] Last Admin: 05/03/17 22:07 Dose: 10 mg Nateglinide (Starlix) 60 mg PO ACTID [facility] Last Admin: 05/04/17 08:35 Dose: 60 mg Pantoprazole Sodium (Protonix Ec Tab) 40 mg PO ACB [facility] Last Admin: 05/04/17 08:34 Dose: 40 mg Rosuvastatin Calcium (Crestor) 10 mg PO [facility] Last Admin: 05/03/17 22:07 Dose: 10 mg Fluticasone/Salmeterol (Advair Diskus 250/50) 1 puff INH RQ12 [facility] - Labs Labs: PT 12.2 SECONDS (9.7-12.2) 04/30/17 02:35 INR 1.1 04/30/17 02:35 APTT 29 SECONDS (21-34) 04/30/17 02:35 - Constitutional Appears: Well, No Acute Distress - Head Exam Head Exam: ATRAUMATIC, NORMAL INSPECTION, NORMOCEPHALIC - Respiratory Exam Respiratory Exam: Clear to Ausculation Bilateral, NORMAL BREATHING PATTERN. absent: Rales, Rhonchi - Cardiovascular Exam Cardiovascular Exam: RRR, +S1, +S2 - GI/Abdominal Exam GI & Abdominal Exam: Soft, Normal Bowel Sounds. absent: Tenderness - Extremities Exam Extremities Exam: Pedal Edema (Improving) - Neurological Exam Neurological Exam: Alert, Awake, Oriented x3 - Psychiatric Exam Psychiatric exam: Normal Affect, Normal Mood - Skin Skin Exam: Intact, Normal Color, Warm Assessment and Plan (1) CHF (congestive heart failure) Assessment & Plan: Pacemaker interrogated, no recent events or events post EGD Pt will continue current medical regimen at home Pt is to follow up with Dr. Roberson in office in 1 month Status: Acute <Bee Roberson - Last Filed: 05/07/17 13:51> Objective - Vital Signs/Intake and Output Vital Signs (last 24 hours): Temp Pulse Resp BP Pulse Ox 98.2 F 65 20 107/68 99 06/23/17 14:00 05/04/17 14:00 05/04/17 14:00 05/04/17 14:00 05/04/17 14:00 - Labs Labs: 05/04/17 14:29 PT 12.2 SECONDS (9.7-12.2) 04/30/17 02:35 INR 1.1 04/30/17 02:35 APTT 29 SECONDS (21-34) 04/30/17 02:35 Attending/Attestation - Attestation I have personally seen and examined this patient.: Yes I have fully participated in the care of the patient.: Yes I have reviewed all pertinent clinical information, including history, physical exam and plan: Yes Notes (Text): 05/07/17 13:50 ppm no events pt follow up with Dr Peck
[2017-05-04 14:47] LABS: CHLORIDE 99 mmol/L (98-107); POTASSIUM 3.5 mmol/L (3.6-5.2); SODIUM 142 mmol/L (132-148)
[2017-05-04 14:49] LABS: GFR AFRICAN-AMERICAN > 60
[2017-05-04 14:50] LABS: ALB/GLOB RATIO 0.9 (1.0-2.1); ALKALINE PHOSPHATASE 83 U/L (38-126); ALT/SGPT 20 U/L (9-52); AST/SGOT 23 U/L (14-36); BILIRUBIN,TOTAL 0.6 mg/dL (0.2-1.3); BLOOD UREA NITROGEN 17 mg/dL (7-17); CALCIUM 9.2 mg/dl (8.6-10.4); CARBON DIOXIDE 32 mmol/L (22-30); GLUCOSE,RANDOM 135 mg/dL (65-105); TOTAL PROTEIN 7.6 g/dL (6.3-8.3)
[2017-05-04] MEDS ORDERED: Potassium Chloride 20 mEq ER Tab PO STA ×2 (15:52→16:14)
[2017-05-04] MEDS ORDERED: Potassium Chloride 20 mEq ER Tab PO ONE (16:40)
--- NOTE | 2017-05-04 17:54 | PCM.HF ---
Heart Failure Core Measure - Heart Failure Ejection Fraction: 40 % or Greater SEVERINO Inhibitor Prescribed: No Contraindication/Reason for not providing: ef>45 Beta-Yannick Prescribed: Bisoprolol Angiotensin II Receptor Yannick Prescribed: No Contraindication/Reason for not providing: ef>45 AnticoagulationTherapy for Atrial Fibrillation/Atrialflutter: No Contraindication/Reason for not providing: no hx of afib Aldosterone Antagonist Prescribed: No Contraindication/Reason for not providing: ef>45 Hydralazine Nitrate Prescribed: Yes Implantable Cardioverter Defibrillator Therapy: Yes Cardiac Resynchronization Therapy Prescribed: No Contraindication/Reason for not providing: pt has ICD - Follow up Will be discharged to: Home Follow Up Date (must be within 7 days from discharge): 05/08/17 Follow Up Time: 09:00
[2017-05-04 18:53] VITALS: BP 107/68; PULSE 65; TEMP 98.2; O2SAT 99
[2017-05-04] MEDS ORDERED: Fluticasone-Salmeterol 250-50mcg Diskus INH SCH (20:00)
--- NOTE | 2017-05-04 20:23 | DS ---
REASON FOR ADMISSION: This is an 89-year-old [place] female with history of multiple medical proble ms, who was admitted for exacerbation of chronic obstructive pulmonary disease with oropharyngeal can didiasis. COURSE OF HOSPITALIZATION: The patient was admitted to medical floor and she was started on bronchod ilators without steroids due to the oropharyngeal candidiasis. The patient was started on IV Difluca n. Her symptoms responded well. The patient had a GI consultation done by Dr. Medrano's group. The p atient had an EGD that showed gastritis and patient was continued on Protonix. The patient's respira tory status has improved and patient was discharged home in good condition to continue Diflucan for a nother 5 days and to continue her current medications and follow up with Dr. Peck in 2 weeks. FINAL DIAGNOSES: Oropharyngeal candidiasis, exacerbation of chronic obstructive pulmonary disease, h ypertension, type 2 diabetes mellitus, hypothyroidism. [facility] Peck MD cc: [id number] TT: 05/04/2017 20:22:03 jn
== END 2017-05-04 22:30 | disposition home or self-care (01) | DRG 157 ==
LOC: C.ER 00:15 → C.5T 03:25 → OBSVTOIN 17:16
PROVIDERS: ADMIT Internal Medicine; ATTEND Internal Medicine
PROC: 0CJS8ZZ Inspection of Larynx, Via Natural or Artificial Opening Endoscopic (ICD-10-PCS; principal; 2017-04-30)
PROC: 0DB28ZX Excision of Middle Esophagus, Via Natural or Artificial Opening Endoscopic, Diagnostic (ICD-10-PCS; 2017-05-02)
PROC: 0DB68ZX Excision of Stomach, Via Natural or Artificial Opening Endoscopic, Diagnostic (ICD-10-PCS; 2017-05-02)
DX: B37.0 Candidal stomatitis (principal); I50.33 Acute on chronic diastolic (congestive) heart failure; B37.89 Other sites of candidiasis; I11.0 Hypertensive heart disease with heart failure; J44.1 Chronic obstructive pulmonary disease with (acute) exacerbation; N39.0 Urinary tract infection, site not specified; E11.9 Type 2 diabetes mellitus without complications; E03.9 Hypothyroidism, unspecified; Z86.73 Personal history of transient ischemic attack (TIA), and cerebral infarction without residual deficits; R00.2 Palpitations; K44.9 Diaphragmatic hernia without obstruction or gangrene; K29.70 Gastritis, unspecified, without bleeding; K21.0 Gastro-esophageal reflux disease with esophagitis

== ENCOUNTER 2017-07-20 09:20 | Inpatient (IN) | payer MEDICARE, OTHER ==
[2017-07-20 09:20] VITALS: PULSE 1; BMI 26.4
[2017-07-20 10:00] LABS: VENOUS BLOOD GAS BASE EXCESS 3.1 mmol/L (0.0-2.0); VENOUS BLOOD GAS MODE BiPAP; VENOUS BLOOD GAS PCO2 51 mmHg (40-60); VENOUS BLOOD PH 7.37 (7.32-7.43)
[2017-07-20 10:03] LABS: BASO # 0.1 K/uL (0.0-0.2); BASO % 1.1 % (0.0-2.0); EOS # 0.1 K/uL (0.0-0.7); EOS % 1.2 % (0.0-4.0); HEMATOCRIT 33.3 % (34.0-47.0); LYMPH # 1.5 K/uL (1.0-4.3); LYMPH % 30.1 % (20.0-40.0); MEAN CORPUSCULAR HEMOGLOBIN 30.9 pg (27.0-31.0); MEAN CORPUSCULAR HGB CONC 33.4 g/dL (33.0-37.0); MEAN PLATELET VOLUME 8.4 fL (7.2-11.7); MONO # 0.3 K/uL (0.0-0.8); MONO % 6.4 % (0.0-10.0); RED CELL DISTRIBUTION WIDTH 18.2 % (11.5-14.5); WHITE BLOOD COUNT 4.9 K/uL (4.8-10.8)
[2017-07-20 10:04] LABS: MEAN CELL VOLUME 92.5 fL (81.0-99.0)
[2017-07-20 10:17] LABS: ALB/GLOB RATIO 1.1 (1.0-2.1); ALKALINE PHOSPHATASE 50 U/L (38-126); ALT/SGPT 19 U/L (9-52); AST/SGOT 21 U/L (14-36); BILIRUBIN,TOTAL 0.8 mg/dL (0.2-1.3); BLOOD UREA NITROGEN 19 mg/dL (7-17); CALCIUM 9.2 mg/dl (8.6-10.4); CARBON DIOXIDE 25 mmol/L (22-30); CHLORIDE 103 mmol/L (98-107); GFR AFRICAN-AMERICAN > 60; GLUCOSE,RANDOM 119 mg/dL (65-105); POTASSIUM 3.6 mmol/L (3.6-5.2); SODIUM 145 mmol/L (132-148); TOTAL PROTEIN 7.6 g/dL (6.3-8.3)
--- NOTE | 2017-07-20 10:17 | C.PDOC ---
History Of Present Illness 89 y/o female, with PMHx of CAD, Cardia Arrhythmia (afib), CHF, COPD, CVA, diabetes, HTN, is brought to ED by ambulance for evaluation of shortness of breath since 3:00 this morning. CPAP treatment, and sublingual Nitro was given on filed with improvement of symptoms. Daughter denies any cough, chest pain, or fever. Time Seen by Provider: 07/20/17 09:25 Chief Complaint (Nursing): Respiratory Distress History Per: Patient History/Exam Limitations: no limitations Onset/Duration Of Symptoms: Hrs Current Symptoms Are (Timing): Still Present Associated Symptoms: denies: Sweating, Heart Racing, Leg/Calf Pain, Ankle/Leg Swelling, Dizziness, Light-headedness, Anxiety, Tingling In Hands Or Face, Musle Spasms In Hands Or Feet Recent travel outside of the [place]: No Additional History Per: Patient Past Medical History Reviewed: Historical Data, Nursing Documentation, Vital Signs Vital Signs: Last Vital Signs Temp 98.6 F 07/24/17 07:00 Pulse 60 07/24/17 07:00 Resp 20 07/24/17 07:00 BP 113/73 07/24/17 10:45 Pulse Ox 96 07/24/17 07:00 - Medical History PMH: Arthritis, Atrial Fibrillation, CAD, Cardia Arrhythmia (afib), CHF, COPD, CVA, Diabetes, HTN, Hypercholesterolemia, Hypothyroidism, Pneumonia, Pulmonary Embolism, Rheumatoid Arthritis Surgical History: Appendectomy, Pacemaker (10/2016) - [facility] Procedures EXCISION OF MIDDLE ESOPHAGUS, ENDO, DIAGN (04/30/17) EXCISION OF STOMACH, ENDO, DIAGN (04/30/17) EXERCISE TREATMENT OF MUSCULOSK WHOLE USING ASSIST EQUIPMENT (03/19/17) GAIT TRAINING/AMBULAT TREATMENT USING ASSIST EQUIPMENT (03/19/17) GROOMING/PERSONAL HYGIENE TREATMENT USING ASSIST EQUIPMENT (11/14/16) INSERTION OF INFUSION DEV INTO SUP VENA CAVA, PERC APPROACH (11/14/16) INSPECTION OF LARYNX, ENDO (04/30/17) INTRODUCE OF OTH ANTI-INFECT INTO PERIPH VEIN, PERC APPROACH (03/19/17) INTRODUCE OTH ANTI-INFECT IN CENTRAL VEIN, PERC (11/14/16) INTRODUCTION OF ANTI-INFLAM INTO RESP TRACT, VIA OPENING (03/19/17) REPAIR SCALP SKIN, EXTERNAL APPROACH (10/16/15) Family History: States: Unknown Family Hx - Social History Hx Tobacco Use: No Hx Alcohol Use: No Hx Substance Use: No - Immunization History Hx Tetanus Toxoid Vaccination: No Hx Influenza Vaccination: No Hx Pneumococcal Vaccination: No Review Of Systems Except As Marked, All Systems Reviewed And Found Negative. Constitutional: Negative for: Fever, Chills Cardiovascular: Negative for: Chest Pain, Palpitations, Light Headedness Respiratory: Positive for: Shortness of Breath. Negative for: Cough Gastrointestinal: Negative for: Nausea, Vomiting Physical Exam - Physical Exam Appears: Non-toxic, No Acute Distress Skin: Normal Color, Warm, Dry Head: Atraumatic, Normacephalic Eye(s): bilateral: Normal Inspection Oral Mucosa: Moist Neck: Normal ROM, Supple Chest: Symmetrical Cardiovascular: Rhythm Regular, No Murmur Respiratory: Rales (bibasilar rales), No Rhonchi, No Wheezing Gastrointestinal/Abdominal: Soft, No Tenderness Extremity: Normal ROM, Pedal Edema (2+ b/l pitting edema), No Deformity Neurological/Psych: Oriented x3, Normal Speech ED Course And Treatment - Laboratory Results Result Diagrams: 07/23/17 11:41 07/23/17 11:41 ECG: Interpreted By Me, Viewed By Me ECG Rhythm: AV Paced Interpretation Of ECG: AV dual-paced rhythm at 65 bpm. Rate From EC (bpm) O2 Sat by Pulse Oximetry: 100 (on RA) Pulse Ox Interpretation: Normal Progress Note: Blood work, CXR, EKG ordered and reviewed. Pt was given 20mg PO Lasix. Medical Decision Making Medical Decision Making: CXR HISTORY: sob COMPARISON: Portable chest 04/30/2017. FINDINGS: LUNGS: Pacemaker unchanged in position. Cardiac silhouette appears prominent once again. No pulmonary vascular derangement is appreciated. History volume appears diminished with crowding of the bronchovascular markings appreciate the medial right base in the interval. Linear atelectasis is not excluded the right base. PLEURA: Minimal left pleural effusion is difficult to exclude with the left basal limited penetration laterally. None is seen at the right. CARDIOVASCULAR: As above. OSSEOUS STRUCTURES: No significant abnormalities. VISUALIZED UPPER ABDOMEN: Normal. OTHER FINDINGS: None. IMPRESSION: Diminished history volume likely causing crowding of bronchovascular markings at the right base as well as linear atelectasis. No definite alveolar infiltrate bilaterally. Trace of pleural effusion not excluded. Prominent cardiac silhouette appears stable with pacemaker again noted. 10:[address] Peck. Disposition - Disposition Disposition: HOSPITALIZED Disposition Time: 10:17 Condition: STABLE - Clinical Impression Clinical Impression: CHF exacerbation - Scribe Statement The provider has reviewed the documentation as recorded by the Scribe Tania Mckeon All medical record entries made by the Еленаibe were at my direction and personally dictated by me. I have reviewed the chart and agree that the record accurately reflects my personal performance of the history, physical exam, medical decision making, and the department course for this patient. I have also personally directed, reviewed, and agree with the discharge instructions and disposition.
[2017-07-20] MEDS ORDERED: Albuterol-Ipratrop 3 mg / 0.5 (3 ml) UD IH PRN (13:06)
--- NOTE | 2017-07-20 14:09 | CP.PCM.CON ---
<Nikki Somers - Last Filed: 07/20/17 14:02> History of Present Illness - History of Present Illness History of Present Illness: This is an 89 yo female patient with pmh DM, HTN, CVA, A-fib, CHF, CVA, COPD seen at bedside today with Dr. Soto present following request for podiatry consult. Pt says that her toenails are long and need to be cut. Of note patient was admitted earlier today due to episode of shortness of breath. Denies any other pedal complaints. Denies numbness or tingling to feet. Review of Systems - Review of Systems Review of Systems: All systems reviewed and found to be negative, except pertinent HPI findings above Past Patient History - Infectious Disease Hx of Infectious Diseases: None - Past Medical History & Family History Past Medical History?: Yes - Past Social History Smoking Status: Never Smoked - CARDIAC Hx Atrial Fibrillation: Yes Hx Cardia Arrhythmia: Yes (afib) Hx Congestive Heart Failure: Yes Hx Hypercholesterolemia: Yes Hx Hypertension: Yes Hx Pacemaker: Yes (10/2016) - PULMONARY Hx Chronic Obstructive Pulmonary Disease (COPD): Yes Hx Pneumonia: Yes Hx Pulmonary Embolism: Yes - NEUROLOGICAL Hx Alzheimer's Disease: No Hx Dementia: No Hx Migraine: No Hx Multiple Sclerosis: No Hx Parkinson's Disease: No Hx Seizures: No Hx Transient Ischemic Attacks (TIA): No - HEENT Hx Cataracts: Yes - RENAL Hx Chronic Kidney Disease: No Hx Kidney Stones: No - ENDOCRINE/METABOLIC Hx Hypothyroidism: Yes - HEMATOLOGICAL/ONCOLOGICAL Hx Anemia: No Hx Human Immunodeficiency Virus (HIV): No Hx Sickle Cell Disease: No - INTEGUMENTARY Hx Dermatological Problems: No Hx Basil Cell: No Hx Gao: No Hx Cellulitis: No Hx Eczema: No Hx Melanoma: No Hx Psoriasis: No Hx Squamous Cell: No - MUSCULOSKELETAL/RHEUMATOLOGICAL Hx Arthritis: Yes Hx Rheumatoid Arthritis: Yes - GASTROINTESTINAL Hx Crohn's Disease: No Hx Diverticulitis: No Hx Gall Bladder Disease: No Hx Gastritis: No Hx Pancreatitis: No - GENITOURINARY/GYNECOLOGICAL Hx Sexually Transmitted Disorders: No - PSYCHIATRIC Hx Substance Use: No - SURGICAL HISTORY Hx Appendectomy: Yes - ANESTHESIA Hx Anesthesia: Yes Hx Anesthesia Reactions: No Hx Malignant Hyperthermia: No Meds Allergies/Adverse Reactions: Allergies Allergy/AdvReac Type Severity Reaction Status Date / Time Penicillins Allergy RASH Verified 07/20/17 09:25 - Medications Medications: Current Medications Albuterol/Ipratropium (Duoneb 3 Mg/0.5 Mg (3 Ml) Ud) 3 ml IH RQ8 PRN PRN Reason: Shortness of Breath Amiodarone HCl (Cordarone) 200 mg PO DAILY [facility] Bisoprolol Fumarate (Zebeta) 2.5 mg PO DAILY [facility] Last Admin: 07/20/17 13:45 Dose: 2.5 mg Clopidogrel Bisulfate (Plavix) 75 mg PO DAILY [facility] Famotidine (Pepcid) 20 mg PO DAILY [facility] Furosemide (Lasix) 40 mg IVP DAILY [facility] Hydralazine HCl (Apresoline) 25 mg PO BID [facility] Metformin HCl (Glucophage) 500 mg PO BIDCC [facility] Montelukast Sodium (Singulair) 10 mg PO HS [facility] Nateglinide (Starlix) 60 mg PO ACTID [facility] Potassium Chloride (K-Dur 20 Meq Er Tab) 20 meq PO DAILY [facility] Rosuvastatin Calcium (Crestor) 10 mg PO HS [facility] Physical Exam - Constitutional Appears: Non-toxic, No Acute Distress - Extremities Exam Additional comments: bilateral lower extremity exam: VASC- DP/PT pulses are palpable, skin temp runs warm to cool from proximal to distal, cap refill < 3sec to digits, slight 1+ pitting edema to dorsum of feet bl DERM- elongated thickened toenails to toenails x 10, no open wounds or ulcerations, no signs infection NEURO- pedal sensation grossly intact ORTHO- no gross abnormalities seen - Neurological Exam Neurological exam: Alert, CN II-XII Intact, Oriented x3 - Psychiatric Exam Psychiatric exam: Normal Affect, Normal Mood Results - Vital Signs Recent Vital Signs: Last Vital Signs Temp 97.9 F 07/20/17 11:19 Pulse 65 07/20/17 11:19 Resp 24 07/20/17 11:19 BP 122/70 07/20/17 11:19 Pulse Ox 96 07/20/17 11:19 - Labs Result Diagrams: 07/20/17 09:55 07/20/17 09:55 Assessment & Plan - Assessment and Plan (Free Text) Assessment: 89 yo female patient with elongated toenails and diabetes mellitus Plan: Pt S&E at bedside with Dr. Soto present Chart labs and vitals reviewed Toenails aseptically debrided x 10 with nail nipper. pt tolerated well without incident Advised pt to f/u with Dr. Solomon Soto DPM as outpatient Podiatry to sign off. Thank you for this consult, please reconsult as needed. <Sloomon Soto D - Last Filed: 07/20/17 21:46> Meds - Medications Medications: Current Medications Albuterol/Ipratropium (Duoneb 3 Mg/0.5 Mg (3 Ml) Ud) 3 ml IH RQ8 PRN PRN Reason: Shortness of Breath Amiodarone HCl (Cordarone) 200 mg PO DAILY [facility] Bisoprolol Fumarate (Zebeta) 2.5 mg PO DAILY [facility] Last Admin: 07/20/17 13:45 Dose: 2.5 mg Clopidogrel Bisulfate (Plavix) 75 mg PO DAILY [facility] Last Admin: 07/20/17 17:28 Dose: 75 mg Famotidine (Pepcid) 20 mg PO DAILY [facility] Furosemide (Lasix) 40 mg IVP DAILY [facility] Hydralazine HCl (Apresoline) 25 mg PO BID [facility] Last Admin: 07/20/17 19:35 Dose: 25 mg Metformin HCl (Glucophage) 500 mg PO BIDCC [facility] Last Admin: 07/20/17 17:29 Dose: 500 mg Montelukast Sodium (Singulair) 10 mg PO HS [facility] Last Admin: 07/20/17 21:37 Dose: 10 mg Nateglinide (Starlix) 60 mg PO ACTID [facility] Last Admin: 07/20/17 17:29 Dose: 60 mg Potassium Chloride (K-Dur 20 Meq Er Tab) 20 meq PO DAILY [facility] Rosuvastatin Calcium (Crestor) 10 mg PO HS [facility] Last Admin: 07/20/17 21:37 Dose: 10 mg Results - Vital Signs Recent Vital Signs: Last Vital Signs Temp 97.8 F 07/20/17 15:17 Pulse 64 07/20/17 17:00 Resp 20 07/20/17 15:17 BP 120/82 07/20/17 15:17 Pulse Ox 99 07/20/17 15:17 - Labs Result Diagrams: 07/20/17 09:55 07/20/17 09:55 Labs: Laboratory Results - last 24 hr 07/20/17 07/20/17 16:41 20:58 POC Glucose (mg/dL) 177 H 108 Attending/Attestation - Attestation I have personally seen and examined this patient.: Yes I have fully participated in the care of the patient.: Yes I have reviewed all pertinent clinical information: Yes
--- NOTE | 2017-07-20 19:28 | CARD ---
APPROVED REPORT EKG Measurement Heart [id number] [place] 210P [id number] <Conclusion> AV dual-paced rhythm with prolonged AV conduction Abnormal ECG
--- NOTE | 2017-07-21 03:17 | HP ---
HISTORY OF PRESENT ILLNESS: The patient is an 89 years old [place]ian female with history of multiple medical problems who was brought to the emergency room by EMS because of acute progressive shortness of breath. The patient was found to be in severe pulmonary congestion. The patient was given diuretics in her way to emergency room by paramedics. The patient was given more Lasix as she arrived to emergency room and by the time of physical examination, the patient was feeling already better. The patient also had BiPAP initially when she arrived to emergency room that could be switched to a nasal cannula as the patient was feeling better. REVIEW OF SYSTEMS: Other review of system is negative. ALLERGIES: THE PATIENT HAS ALLERGY TO PENICILLIN. HOME MEDICATIONS: Lasix 40 mg Sunday, Sunday, and Sunday; potassium 10 mEq daily, metformin 500 mg twice a day, Protonix 40 mg daily, Starlix 60 mg three times a day, Singulair 10 mg at bedtime, levothyroxine 100 mcg daily, Plavix 75 mg daily, bisoprolol 2.5 mg daily, amiodarone 200 mg daily, hydralazine 25 mg daily, and Megace 200 mg twice a day. PAST MEDICAL HISTORY: Type 2 diabetes mellitus, hypertension, and hypothyroidism. SOCIAL HISTORY: No history of smoking, ETOH or substance abuse. FAMILY HISTORY: Noncontributory. PHYSICAL EXAMINATION: GENERAL: The patient was not in any cardiopulmonary distress. VITAL SIGNS: With blood pressure of 122/70, temperature 97.9, respiratory rate 20, and pulse 65. HEENT: Pupils are equal and reactive to light. Normal-appearing mucosa of the conjunctivae, oropharynx, and nasal membrane mucosa. NECK: Supple. No JVD. No carotid bruit. No lymph node. No thyromegaly. CHEST AND LUNGS: Bilateral symmetrical expansion. Good air exchange. No rhonchi. The patient has bilateral basal rales. CARDIOVASCULAR SYSTEM: PMI not localized. S1 and S2. No additional sounds. ABDOMEN: Normoactive bowel sounds. No tenderness. No organomegaly. No masses. EXTREMITIES: No cyanosis. No clubbing. No edema. CENTRAL NERVOUS SYSTEM: Alert, awake, and oriented x3. No neurological deficit could be appreciated. LABORATORY DATA: Chest x-ray showed bilateral pulmonary congestion and pleural effusion. ASSESSMENT: 1. Acute exacerbation of congestive heart failure, both systolic and diastolic, acute on chronic, secondary to noncompliance to medications as the patient was not taking her Lasix as well as not compliant to salt and fluid restriction. 2. History of type 2 diabetes mellitus. 3. Hypertension. 4. Hypothyroidism. PLAN: We will continue diuretics. Monitor the patient on telemetry. Monitor electrolytes. Resume the patient's home medications. Accu-Cheks with insulin coverage as needed. Discussed the patient's condition with her daughter at the bedside. [facility] MD [place]
[2017-07-21] MEDS: Potassium Chloride 20 mEq ER Tab PO SCH (09:37)
[2017-07-22] MEDS: Potassium Chloride 20 mEq ER Tab PO SCH (09:53)
--- NOTE | 2017-07-23 01:11 | PN ---
DATE: 07/22/2017 SUBJECTIVE: She is less short of breath and she is currently on diuretics. PHYSICAL EXAMINATION: VITAL SIGNS: Blood pressure 157/90, temperature 98, respiratory rate 18, and pulse 63. HEENT: Pupils equal and reactive to light. Normal appearing mucosa of the conjunctivae, oropharynx, and nasal membrane mucosa. NECK: Supple. No JVD. No carotid bruits. No lymph nodes. No thyromegaly. CHEST AND LUNGS: Bilateral symmetrical expansion. Good air exchange. No rales. No rhonchi. CARDIOVASCULAR: PMI not localized. S1 and S2. No additional sounds. ABDOMEN: Normoactive bowel sounds. No tenderness. No organomegaly. No masses. EXTREMITIES: No cyanosis. No clubbing. No edema. CENTRAL NERVOUS SYSTEM: Alert, awake, and oriented x2. No neurological deficit could be appreciated. ASSESSMENT: 1. Exacerbation of congestive heart failure, acute on top of chronic systolic and diastolic. 2. Hypertension, which is uncontrolled. 3. Hypothyroidism. 4. Osteoarthritis. PLAN: Continue current diuretics and monitor electrolytes. Continue antihypertensive medications. Low salt diet. Mingo Peck MD
[2017-07-23] MEDS ORDERED: Pneumococcal 23-Valent Vaccine IM ONE (10:00)
[2017-07-23] MEDS: Potassium Chloride 20 mEq ER Tab PO SCH (10:17)
[2017-07-23 11:47] LABS: BASO % 0.6 % (0.0-2.0); EOS # 0.1 K/uL (0.0-0.7); EOS % 1.7 % (0.0-4.0); LYMPH # 1.2 K/uL (1.0-4.3); LYMPH % 31.8 % (20.0-40.0); MEAN CELL VOLUME 93.4 fL (81.0-99.0); MEAN CORPUSCULAR HEMOGLOBIN 31.1 pg (27.0-31.0); MEAN CORPUSCULAR HGB CONC 33.3 g/dL (33.0-37.0); MEAN PLATELET VOLUME 8.4 fL (7.2-11.7); MONO # 0.4 K/uL (0.0-0.8); MONO % 11.6 % (0.0-10.0); NRBC % 0.1 % (0.0-2.0); WHITE BLOOD COUNT 3.8 K/uL (4.8-10.8)
[2017-07-23 12:09] LABS: CALCIUM 9.4 mg/dl (8.6-10.4); POTASSIUM 3.6 mmol/L (3.6-5.2)
[2017-07-23 16:29] VITALS: RESP 20
--- NOTE | 2017-07-23 23:51 | PN ---
DATE: 07/23/2017 SUBJECTIVE: She has no shortness of breath and the patient is on Lasix 40 mg daily. BUN is 27 and creatinine 1.2. PHYSICAL EXAMINATION: VITAL SIGNS: Blood pressure is 116/66, temperature 98, respiratory rate 20, and pulse 65. HEENT: Pupils equal and reactive to light. Normal appearing mucosa of the conjunctivae, oropharyngeal, and nasal membrane mucosa. NECK: Supple. No JVD. No carotid bruits. No lymph node. No thyromegaly. CHEST AND LUNGS: Bilateral symmetrical expansion. Good air exchange. No rales. No rhonchi. CARDIOVASCULAR: PMI not localized. S1 and S2. No additional sounds. ABDOMEN: Normoactive bowel sounds. No tenderness. No organomegaly. No masses. EXTREMITIES: No cyanosis. No clubbing. No edema. CENTRAL NERVOUS SYSTEM: Alert, awake, and oriented x3. No neurological deficits could be appreciated. ASSESSMENT: 1. Exacerbation of congestive heart failure plus acute on top of chronic systolic and diastolic secondary to noncompliance with medications and fluid restriction. 2. Hypertension. 3. Hypothyroidism. 4. Osteoarthritis. PLAN: Continue current medications. We will decrease Lasix to 20 mg and follow electrolytes. If the patient is stable, we will discharge home tomorrow. Mingo Peck MD
[2017-07-24] MEDS: Potassium Chloride 20 mEq ER Tab PO SCH (10:44)
--- NOTE | 2017-07-24 15:26 | PCM.HF ---
Heart Failure Core Measure - Heart Failure Ejection Fraction: 40 % or Greater SEVERINO Inhibitor Prescribed: No Contraindication/Reason for not providing: EF >40 Beta-Yannick Prescribed: Bisoprolol Angiotensin II Receptor Yannick Prescribed: No Contraindication/Reason for not providing: EF >40 AnticoagulationTherapy for Atrial Fibrillation/Atrialflutter: No Contraindication/Reason for not providing: NO AFIB Aldosterone Antagonist Prescribed: No Contraindication/Reason for not providing: EF >40 Hydralazine Nitrate Prescribed: Yes Implantable Cardioverter Defibrillator Therapy: No Contraindication/Reason for not providing: EF >40 Cardiac Resynchronization Therapy Prescribed: No Contraindication/Reason for not providing: EF >40 - Follow up Will be discharged to: Group Home Facility ([facility] UNDER SERVICE OF DR. REDDY) Follow Up Date (must be within 7 days from discharge): 07/27/17 Follow Up Time: 09:00
--- NOTE | 2017-07-24 15:31 | CP.PCM.PN ---
Subjective - Date & Time of Evaluation Date of Evaluation: 07/24/17 Time of Evaluation: 15:30 - Subjective Subjective: PT CLEARED FOR D/C PER DR. REDDY. UPON DISCUSSION ON DISPO WITH DAUGHTER AND PT , THEY BOTH AGREED TO [facility] (PREVIOUSLY HAD REFUSED [facility]). REFERRED AND ACCEPTED TO [facility]. TO BE D/C THERE TODAY UNDER SERVICE OF DR. REDDY. DR. REDDY MADE AWARE OF D/C CHANGE. ARRANGEMENTS MADE BY . Objective - Vital Signs/Intake and Output Vital Signs (last 24 hours): Temp Pulse Resp BP Pulse Ox 98.6 F 60 20 113/73 100 07/24/17 07:00 07/24/17 07:00 07/24/17 07:00 07/24/17 10:45 07/24/17 13:16 Intake and Output: 07/24/17 07/24/17 06:59 18:59 Intake Total 240 Output Total 300 Balance -60 - Medications Medications: Current Medications Albuterol/Ipratropium (Duoneb 3 Mg/0.5 Mg (3 Ml) Ud) 3 ml IH RQ8 PRN PRN Reason: Shortness of Breath Amiodarone HCl (Cordarone) 200 mg PO DAILY [facility] Last Admin: 07/24/17 10:44 Dose: 200 mg Bisoprolol Fumarate (Zebeta) 2.5 mg PO DAILY [facility] Last Admin: 07/24/17 10:44 Dose: 2.5 mg Clopidogrel Bisulfate (Plavix) 75 mg PO DAILY [facility] Last Admin: 07/24/17 10:44 Dose: 75 mg Famotidine (Pepcid) 20 mg PO DAILY [facility] Last Admin: 07/24/17 10:44 Dose: 20 mg Furosemide (Lasix) 40 mg IVP DAILY [facility] Last Admin: 07/24/17 10:45 Dose: 40 mg Heparin Sodium (Porcine) (Heparin) 5,000 units SC Q12 [facility] Last Admin: 07/24/17 10:44 Dose: 5,000 units Hydralazine HCl (Apresoline) 25 mg PO BID [facility] Last Admin: 07/24/17 10:44 Dose: 25 mg Metformin HCl (Glucophage) 500 mg PO BIDCC [facility] Last Admin: 07/24/17 08:36 Dose: 500 mg Montelukast Sodium (Singulair) 10 mg PO HS [facility] Last Admin: 07/23/17 21:10 Dose: 10 mg Nateglinide (Starlix) 60 mg PO ACTID [facility] Last Admin: 07/24/17 12:25 Dose: 60 mg Potassium Chloride (K-Dur 20 Meq Er Tab) 20 meq PO DAILY [facility] Last Admin: 07/24/17 10:44 Dose: 20 meq Rosuvastatin Calcium (Crestor) 10 mg PO HS [facility] Last Admin: 07/23/17 21:09 Dose: 10 mg - Labs Labs: 07/23/17 11:41 07/23/17 11:41
[2017-07-24 16:47] VITALS: TEMP 98.3
[2017-07-24 16:56] VITALS: BP 104/68; PULSE 63; O2SAT 97
--- NOTE | 2017-07-25 08:04 | DS ---
REASON FOR ADMISSION: This is an 89-year-old [place]er female with history of multiple medical problems who was admitted for exacerbation of congestive heart failure. COURSE OF HOSPITALIZATION: The patient was admitted to telemetry floor and she was started on diuretics since she was in the emergency room. The patient initially was on BiPAP that was switched to nasal cannula and the patient was tolerating well. The patient's blood work was monitored during this hospitalization and she did well. The patient was started on physical therapy, and she was recommended to go to subacute rehabilitation. The patient was discharged to subacute rehab in a stable condition. The patient has decreased visual acuity in both eyes, right more than left. The patient has been having retinal treatment for unknown disease at this point. The patient's daughter was informed to arrange for an appointment with the patient's retina specialist in the morning and arrangement would be made to transfer her from [facility] to the retinal specialist. FINAL DIAGNOSES: 1. Exacerbation of congestive heart failure, acute on chronic. 2. Type 2 diabetes mellitus. 3. Hypertension. 4. Osteoarthritis. Mingo Peck MD
== END 2017-07-24 19:45 | DRG 293 ==
LOC: C.ER 09:20 → C.9E 10:15 → C.6T 11:16
PROVIDERS: ADMIT Internal Medicine; ATTEND Internal Medicine
PROC: 5A09357 Assistance with Respiratory Ventilation, Less than 24 Consecutive Hours, Continuous Positive Airway Pressure (ICD-10-PCS; principal; 2017-07-20)
DX: I11.0 Hypertensive heart disease with heart failure (principal); I50.43 Acute on chronic combined systolic (congestive) and diastolic (congestive) heart failure; J44.9 Chronic obstructive pulmonary disease, unspecified; I48.91 Unspecified atrial fibrillation; I25.10 Atherosclerotic heart disease of native coronary artery without angina pectoris; E11.9 Type 2 diabetes mellitus without complications; E78.00 Pure hypercholesterolemia, unspecified; M19.90 Unspecified osteoarthritis, unspecified site; M06.9 Rheumatoid arthritis, unspecified; E03.9 Hypothyroidism, unspecified; Z86.711 Personal history of pulmonary embolism; Z88.0 Allergy status to penicillin; Z79.01 Long term (current) use of anticoagulants; Z91.14 Patient's other noncompliance with medication regimen; Z91.11 Patient's noncompliance with dietary regimen; Z95.0 Presence of cardiac pacemaker

== ENCOUNTER 2017-09-02 12:35 | Inpatient (IN) | payer MEDICARE, OTHER ==
[2017-09-02 12:36] VITALS: PULSE 1; BMI 26.4
[2017-09-02 13:00] LABS: BASO # 0.1 K/uL (0.0-0.2); BASO % 1.1 % (0.0-2.0); EOS # 0.1 K/uL (0.0-0.7); EOS % 1.9 % (0.0-4.0); HEMATOCRIT 31.9 % (34.0-47.0); LYMPH # 1.1 K/uL (1.0-4.3); LYMPH % 22.4 % (20.0-40.0); MEAN CELL VOLUME 94.8 fL (81.0-99.0); MEAN CORPUSCULAR HGB CONC 33.7 g/dL (33.0-37.0); MEAN PLATELET VOLUME 8.3 fL (7.2-11.7); MONO # 0.4 K/uL (0.0-0.8); MONO % 9.2 % (0.0-10.0); NRBC % 0.1 % (0.0-2.0); RED CELL DISTRIBUTION WIDTH 14.8 % (11.5-14.5); WHITE BLOOD COUNT 4.8 K/uL (4.8-10.8)
[2017-09-02 13:08] LABS: CHLORIDE 101 mmol/L (98-107)
[2017-09-02 13:09] LABS: POTASSIUM 4.3 mmol/L (3.6-5.2); SODIUM 136 mmol/L (132-148)
[2017-09-02 13:11] LABS: ALB/GLOB RATIO 1.4 (1.0-2.1); ALKALINE PHOSPHATASE 46 U/L (38-126); ALT/SGPT 27 U/L (9-52); AST/SGOT 19 U/L (14-36); BILIRUBIN,TOTAL 0.6 mg/dL (0.2-1.3); BLOOD UREA NITROGEN 17 mg/dL (7-17); CARBON DIOXIDE 26 mmol/L (22-30); GFR AFRICAN-AMERICAN > 60; GLUCOSE,RANDOM 136 mg/dL (65-105); TOTAL PROTEIN 6.7 g/dL (6.3-8.3)
[2017-09-02 13:12] LABS: CALCIUM 8.7 mg/dl (8.6-10.4)
--- NOTE | 2017-09-02 13:24 | C.PDOC ---
History Of Present Illness 89 year old female, with a history of CHF, COPD, was brought to the ED by EMS with complaints of SOB, sweats, and swelling of the extremities since last night. As per family, the patient took three treatments of nitrate last night. However, symptoms persisted. Patient denies chest pain, fever, or cough. PMD: Dr. Peck Fashion Model: Dr. Chowdhury Time Seen by Provider: 09/02/17 12:46 Chief Complaint (Nursing): Shortness Of Breath History Per: Patient, Family History/Exam Limitations: no limitations Onset/Duration Of Symptoms: Hrs Current Symptoms Are (Timing): Still Present Associated Symptoms: Sweating, Ankle/Leg Swelling. denies: Fever, Chills, Chest Pain Recent travel outside of the [place]: No Additional History Per: EMS Past Medical History Reviewed: Historical Data, Nursing Documentation, Vital Signs Vital Signs: Last Vital Signs Temp 98.1 F 09/02/17 12:41 Pulse 65 09/02/17 14:39 Resp 24 09/02/17 14:39 BP 149/74 09/02/17 14:39 Pulse Ox 96 09/02/17 15:02 - Medical History PMH: Arthritis, Atrial Fibrillation, CAD, Cardia Arrhythmia (afib), CHF, COPD, CVA, Diabetes, HTN, Hypercholesterolemia, Hypothyroidism, Pneumonia, Pulmonary Embolism, Rheumatoid Arthritis Surgical History: Appendectomy, Pacemaker Denies: CABG, Carotid Endarterectomy, Cholecystectomy, Coronary Stent, Tonsillectomy - [facility] ASSISTANCE WITH RESPIRATORY VENTILATION, <24 HRS, CPAP (07/20/17) EXCISION OF MIDDLE ESOPHAGUS, ENDO, DIAGN (04/30/17) EXCISION OF STOMACH, ENDO, DIAGN (04/30/17) EXERCISE TREATMENT OF MUSCULOSK WHOLE USING ASSIST EQUIPMENT (03/19/17) GAIT TRAINING/AMBULAT TREATMENT USING ASSIST EQUIPMENT (03/19/17) GROOMING/PERSONAL HYGIENE TREATMENT USING ASSIST EQUIPMENT (11/14/16) INSERTION OF INFUSION DEV INTO SUP VENA CAVA, PERC APPROACH (11/14/16) INSPECTION OF LARYNX, ENDO (04/30/17) INTRODUCE OF OTH ANTI-INFECT INTO PERIPH VEIN, PERC APPROACH (03/19/17) INTRODUCE OTH ANTI-INFECT IN CENTRAL VEIN, PERC (11/14/16) INTRODUCTION OF ANTI-INFLAM INTO RESP TRACT, VIA OPENING (03/19/17) REPAIR SCALP SKIN, EXTERNAL APPROACH (10/16/15) Family History: States: Unknown Family Hx - Social History Hx Tobacco Use: No Hx Alcohol Use: No Hx Substance Use: No - Immunization History Hx Tetanus Toxoid Vaccination: No Hx Influenza Vaccination: No Hx Pneumococcal Vaccination: No Review Of Systems Constitutional: Positive for: Sweats. Negative for: Fever, Chills Cardiovascular: Negative for: Chest Pain, Palpitations Respiratory: Positive for: Shortness of Breath Gastrointestinal: Negative for: Nausea, Vomiting, Abdominal Pain Skin: Positive for: Other (bilateral lower extremity swelling. ) Neurological: Negative for: Weakness, Numbness Physical Exam - Physical Exam Additional Physical Exam Comments: Constitutional: No acute distress. Head: Normocephalic. Atraumatic. Eyes: PERRL. ENT: Moist mucous membranes. Neck: Supple. No JVD. Cardiovascular: Regular rate. Radial pulse 2+ bilaterally. Chest: No tenderness. Respiratory: Bibasillar crackles. GI: Soft. Nontender. Nondistended. Back: No CVA tenderness. Musculoskeletal: No tenderness of extremities. Pitting edema of the lower extremities. Skin: No rash. Neurologic: Alert, no focal deficit. ED Course And Treatment - Laboratory Results Result Diagrams: 09/02/17 12:57 09/02/17 12:57 ECG: Interpreted By Me, Viewed By Me Interpretation Of ECG: Paced rhythm. Rate From EC O2 Sat by Pulse Oximetry: 96 (RA) - Radiology CXR: Viewed By Me, Read By Radiologist CXR Interpretation: Yes: Other (Emphysematous changes less well seen compared to prior CTA chest. . Chronic atelectasis/ scarring changes both lung bases including the lingular and to a lesser degree middle lobe regions also less well seen.) Progress Note: EKG, CXR, and UA were ordered. Patient was given Lasix and Nitrostat SL tab. Medical Decision Making Medical Decision Making: IMPRESSION: Emphysematous changes less well seen compared to prior CTA chest. . Chronic atelectasis/ scarring changes both lung bases including the lingular and to a lesser degree middle lobe regions also less well seen. Treated with Lasix/Nitro. Patient will require further treatment in hospital for CHF exacerbation. Dr. 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 Paged/ texted/voicemail left with Dr. Peck, pending his call back. Disposition Discussed With : Annie Mckeon Doctor Will See Patient In The: ED - Disposition Disposition: HOSPITALIZED Disposition Time: 13:31 Condition: FAIR Forms: [facility] (Urdu) - Clinical Impression Clinical Impression: CHF exacerbation - Scribe Statement The provider has reviewed the documentation as recorded by the Scribe Salena Valdez All medical record entries made by the Scribe were at my direction and personally dictated by me. I have reviewed the chart and agree that the record accurately reflects my personal performance of the history, physical exam, medical decision making, and the department course for this patient. I have also personally directed, reviewed, and agree with the discharge instructions and disposition.
[2017-09-02 13:48] LABS: RBC URINE < 1 /hpf (0-3); URINE BILIRUBIN NEGATIVE (NEGATIVE); URINE BLOOD NEGATIVE (NEGATIVE); URINE COLOR Straw (YELLOW); URINE GLUCOSE (UA) NORMAL (Normal); URINE KETONE NEGATIVE (NEGATIVE); URINE LEUKOCYTE ESTERASE NEG Leu/uL (Negative); URINE PROTEIN NEGATIVE (NEGATIVE); URINE UROBILINOGEN NORMAL mg/dL (0.2-1.0); WBC URINE 1 /hpf (0-5)
--- NOTE | 2017-09-02 14:34 | RAD ---
HISTORY: dyspnea COMPARISON: Comparison chest the radiograph and CTAchest dated 07/20/2017 hand 05/02/2017 respectively. FINDINGS: LUNGS: Emphysematous changes less well seen compared to prior CTA chest. . Chronic atelectasis/ scarring changes both lung bases including the lingular and to a lesser degree middle lobe regions also less well seen. PLEURA: No significant pleural effusion identified, no pneumothorax apparent. CARDIOVASCULAR: No change bipolar pacemaker. Heart remains enlarged. OSSEOUS STRUCTURES: No significant abnormalities. VISUALIZED UPPER ABDOMEN: Normal. OTHER FINDINGS: None. IMPRESSION: Emphysematous changes less well seen compared to prior CTA chest. . Chronic atelectasis/ scarring changes both lung bases including the lingular and to a lesser degree middle lobe regions also less well seen.
--- NOTE | 2017-09-02 17:18 | CP.PCM.HP ---
Past Patient History - Infectious Disease Hx of Infectious Diseases: None - Past Medical History & Family History Past Medical History?: Yes - Past Social History Smoking Status: Never Smoked - CARDIAC Hx Atrial Fibrillation: Yes Hx Cardia Arrhythmia: Yes (afib) Hx Congestive Heart Failure: Yes Hx Hypercholesterolemia: Yes Hx Hypertension: Yes Hx Pacemaker: Yes - PULMONARY Hx Chronic Obstructive Pulmonary Disease (COPD): Yes Hx Pneumonia: Yes Hx Pulmonary Embolism: Yes - NEUROLOGICAL Hx Alzheimer's Disease: No Hx Dementia: No Hx Migraine: No Hx Multiple Sclerosis: No Hx Parkinson's Disease: No Hx Seizures: No Hx Transient Ischemic Attacks (TIA): No - HEENT Hx Cataracts: Yes - RENAL Hx Chronic Kidney Disease: No Hx Kidney Stones: No - ENDOCRINE/METABOLIC Hx Hypothyroidism: Yes - HEMATOLOGICAL/ONCOLOGICAL Hx Anemia: No Hx Human Immunodeficiency Virus (HIV): No Hx Sickle Cell Disease: No - INTEGUMENTARY Hx Dermatological Problems: No Hx Basil Cell: No Hx Gao: No Hx Cellulitis: No Hx Eczema: No Hx Melanoma: No Hx Psoriasis: No Hx Squamous Cell: No - MUSCULOSKELETAL/RHEUMATOLOGICAL Hx Arthritis: Yes Hx Rheumatoid Arthritis: Yes - GASTROINTESTINAL Hx Crohn's Disease: No Hx Diverticulitis: No Hx Gall Bladder Disease: No Hx Gastritis: No Hx Pancreatitis: No - GENITOURINARY/GYNECOLOGICAL Hx Sexually Transmitted Disorders: No - PSYCHIATRIC Hx Substance Use: No - SURGICAL HISTORY Hx Appendectomy: Yes Hx Carotid Endarterectomy: No Hx Cholecystectomy: No Hx Coronary Artery Bypass Graft: No Hx Coronary Stent: No Hx Tonsillectomy: No - ANESTHESIA Hx Anesthesia: Yes Hx Anesthesia Reactions: No Hx Malignant Hyperthermia: No Meds Allergies/Adverse Reactions: Allergies Allergy/AdvReac Type Severity Reaction Status Date / Time Penicillins Allergy RASH Verified 09/02/17 12:45 Physical Exam - Constitutional Appears: Well - Head Exam Head Exam: ATRAUMATIC, NORMAL INSPECTION, NORMOCEPHALIC - Eye Exam Eye Exam: EOMI, Normal appearance, PERRL Pupil Exam: NORMAL ACCOMODATION, PERRL - ENT Exam ENT Exam: Mucous Membranes Moist, Normal Exam - Neck Exam Neck exam: Positive for: Normal Inspection - Respiratory Exam Respiratory Exam: Decreased Breath Sounds - Cardiovascular Exam Cardiovascular Exam: REGULAR RHYTHM, +S1, +S2 - GI/Abdominal Exam GI & Abdominal Exam: Diminished Bowel Sounds, Soft - Rectal Exam Rectal Exam: Deferred Results - Vital Signs Recent Vital Signs: Last Vital Signs Temp 98.1 F 09/02/17 12:41 Pulse 65 09/02/17 16:40 Resp 20 09/02/17 16:40 BP 149/77 09/02/17 16:40 Pulse Ox 94 L 09/02/17 16:40 - Labs Result Diagrams: 09/02/17 12:57 09/02/17 12:57 Labs: Laboratory Results - last 24 hr 09/02/17 09/02/17 09/02/17 12:57 12:57 12:57 WBC 4.8 RBC 3.37 L Hgb 10.8 L Hct 31.9 L MCV 94.8 MCH 32.0 H MCHC 33.7 RDW 14.8 H Plt Count 212 MPV 8.3 Neut % (Auto) 65.4 Lymph % (Auto) 22.4 Maverick % (Auto) 9.2 Eos % (Auto) 1.9 Baso % (Auto) 1.1 Neut # 3.2 Lymph # 1.1 Maverick # 0.4 Eos # 0.1 Baso # 0.1 PT 11.3 INR 1.0 APTT 27 Sodium 136 Potassium 4.3 Chloride 101 Carbon Dioxide 26 Anion Gap 14 BUN 17 Creatinine 1.0 Est GFR ( Amer) > 60 Est GFR (Non-Af Amer) 52 Random Glucose 136 H Calcium 8.7 Total Bilirubin 0.6 AST 19 ALT 27 Alkaline Phosphatase 46 Total Creatine Kinase 38 CK-MB (Mass) 0.75 Troponin I < 0.0120 NT-Pro-B Natriuret Pep 1820 H Total Protein 6.7 Albumin 3.9 Globulin 2.7 Albumin/Globulin Ratio 1.4 Urine Color Urine Clarity Urine pH Ur Specific Lambert Urine Protein Urine Glucose (UA) Urine Ketones Urine Blood Urine Nitrate Urine Bilirubin Urine Urobilinogen Ur Leukocyte Esterase Urine WBC (Auto) Urine RBC (Auto) Ur Squamous Epith Cells 09/02/17 13:41 WBC RBC Hgb Hct MCV MCH MCHC RDW Plt Count MPV Neut % (Auto) Lymph % (Auto) Maverick % (Auto) Eos % (Auto) Baso % (Auto) Neut # Lymph # Maverick # Eos # Baso # PT INR APTT Sodium Potassium Chloride Carbon Dioxide Anion Gap BUN Creatinine Est GFR ( Amer) Est GFR (Non-Af Amer) Random Glucose Calcium Total Bilirubin AST ALT Alkaline Phosphatase Total Creatine Kinase CK-MB (Mass) Troponin I NT-Pro-B Natriuret Pep Total Protein Albumin Globulin Albumin/Globulin Ratio Urine Color Straw Urine Clarity Clear Urine pH 7.0 Ur Specific Lambert 1.006 Urine Protein Negative Urine Glucose (UA) Normal Urine Ketones Negative Urine Blood Negative Urine Nitrate Negative Urine Bilirubin Negative Urine Urobilinogen Normal Ur Leukocyte Esterase Neg Urine WBC (Auto) 1 Urine RBC (Auto) < 1 Ur Squamous Epith Cells < 1
[2017-09-02] MEDS: Megestrol Acetate 40 mg/ml Cup PO SCH (22:01)
[2017-09-02] MEDS: (Novolog) Insulin Aspart, Recombinant 100 u/ml 10 ml vial SC SCH (22:58)
[2017-09-02] MEDS: Albuterol-Ipratrop 3 mg / 0.5 (3 ml) UD IH SCH (23:48)
[2017-09-03] MEDS: Levothyroxine 100 MCG TAB PO SCH (06:42)
[2017-09-03] MEDS: Albuterol-Ipratrop 3 mg / 0.5 (3 ml) UD IH SCH ×2 (07:45→16:41)
[2017-09-03] MEDS: (Novolog) Insulin Aspart, Recombinant 100 u/ml 10 ml vial SC SCH ×4 (07:49→22:16)
[2017-09-03] MEDS: Megestrol Acetate 40 mg/ml Cup PO SCH ×2 (09:49→17:47)
[2017-09-03] MEDS: Enoxaparin 40 mg Syringe SC SCH (09:49)
[2017-09-03] MEDS: Potassium Chloride 20 mEq ER Tab PO SCH (09:50)
[2017-09-03] MEDS ORDERED: Pantoprazole 40 mg EC Tab PO SCH (10:00)
[2017-09-04] MEDS: Albuterol-Ipratrop 3 mg / 0.5 (3 ml) UD IH SCH ×3 (00:50→15:56)
[2017-09-04] MEDS: Levothyroxine 100 MCG TAB PO SCH (06:12)
--- NOTE | 2017-09-04 06:44 | HP ---
HISTORY OF PRESENT ILLNESS: The patient is an 89-year-old [place] female with history of multiple medical problems including chronic obstructive pulmonary disease, coronary artery disease, hypertension, and type 2 diabetes mellitus. The patient presented to the emergency room with symptoms of shortness of breath. The patient was evaluated in the emergency room and she was found to have elevated proBNP at the level of 1820. The patient was given diuretics in the emergency room and admitted for further management. REVIEW OF SYSTEMS: Other review of systems is negative. ALLERGIES: THE PATIENT HAS ALLERGY TO PENICILLIN. PAST MEDICAL HISTORY: Hypertension, coronary artery disease, type 2 diabetes mellitus, and COPD. SOCIAL HISTORY: No history of smoking, ETOH, or substance abuse. FAMILY HISTORY: Noncontributory. MEDICATIONS: As per MAR. PHYSICAL EXAMINATION: VITAL SIGNS: Blood pressure 121/75, temperature 97.8, respiratory rate 20, and pulse 65. HEENT: Pupils equal and reactive to light. Normal appearing mucosa of the conjunctivae, oropharyngeal, and nasal membrane mucosa. NECK: Supple. No JVD. No carotid bruit. No lymph node. No thyromegaly. CHEST AND LUNGS: Bilaterally symmetrical expansion. Few scattered rhonchi. Bilateral basilar rales. CARDIOVASCULAR: PMI not localized. S1 and S2. No additional sounds. ABDOMEN: Normoactive bowel sounds. No tenderness. No organomegaly. No masses. EXTREMITIES: No cyanosis. No clubbing. No edema. CENTRAL NERVOUS SYSTEM: Alert, awake, and oriented x3. No neurological deficits could be appreciated. ASSESSMENT: 1. Exacerbation of congestive heart failure mainly diastolic, acute on chronic. 2. Hypertension. 3. Type 2 diabetes mellitus. 4. Chronic obstructive pulmonary disease. PLAN: 1. Continue diuretics. 2. Continue current medications. 3. Cardiology consult. 4. Accu-Chek and insulin coverage. Mingo Peck MD
--- NOTE | 2017-09-04 06:46 | CON ---
CARDIOLOGY CONSULTATION DATE: REASON FOR CONSULTATION: Chest pain and congestive heart failure. HISTORY OF PRESENT ILLNESS: The patient is an 89-year-old [place] female, who has a history of chronic obstructive lung disease, history of diastolic heart failure, history of dual chamber pacemaker placement, and a questionable history of coronary artery disease in the past. She presents because of shortness of breath as well as leg swelling. The patient denies any productive cough or retrosternal chest pain. The patient reported sweating to the emergency room team. SOCIAL HISTORY: The patient is a nonsmoker. She lives by herself with frequent visits from her daughter. REVIEW OF SYSTEMS: No fever or chills. No productive cough noted. There is no syncope. No retrosternal chest pain. No vomiting or diarrhea. MEDICATIONS: Hydralazine 25 mg twice a day, amiodarone 200 mg once a day, Crestor 10 mg once a day, albuterol inhaler q. 8 hours, Glucophage 500 mg twice a day, K-Dur 20 mEq daily, Lasix 20 mg intravenously twice a day, Lovenox 40 mg subcutaneous twice a day, Megace 200 mg twice a day, Plavix 75 mg once a day, Singulair 10 mg at bedtime, Synthroid 100 mcg once a day and bisoprolol 5 mg daily. PAST MEDICAL HISTORY: Hypertension, chronic obstructive lung disease, diabetes mellitus, hypothyroidism, dual chamber pacemaker placement. PHYSICAL EXAMINATION: GENERAL: The patient is an elderly female, who does not appear to be in acute distress. VITAL SIGNS: Blood pressure 144/75, heart rate 63, temperature is 97.3, and respirations 18. HEENT: Normocephalic. NECK: No JVD. CHEST: Minimal basilar rhonchi. HEART: S1 and S2 regular and distant. ABDOMEN: Soft. EXTREMITIES: 1+ pitting edema. No calf tenderness. LABORATORY DATA: SMA-7; sodium 136, potassium 4.3, chloride 101, CO2 of 26, glucose 136, BUN 17 and creatinine 1.0. One set of troponin is normal. ProBNP is 1820. PT, PTT, and INR are within normal limits. Hemoglobin and hematocrit 10.8 and 31.9, white count and platelet count are within normal limits. Chest x-ray revealed normal cardiac silhouette, permanent bronchovascular markings. EKG revealed AV sequential pacemaker placement at a rate of 65. Echocardiography study performed in September of last year revealed ejection fraction estimated at 70%. Trace aortic insufficiency, mild mitral insufficiency, [id number] pulmonary hypertension, grade II pseudonormalization filling pattern. ASSESSMENT: 1. Diastolic heart failure. 2. Chronic obstructive lung disease and [id number] pulmonary hypertension. 3. Status post dual-chamber pacemaker placement. 4. Hypertension and diabetes mellitus. 5. Mild anemia. 6. Hypothyroidism. RECOMMENDATIONS; Continue hydralazine 25 mg twice a day, amiodarone 200 mg once a day, Crestor 10 mg once a day, K-Dur 20 mEq once a day, Lasix 20 mg intravenously twice a day, Lovenox 40 mg once a day, Plavix 75 mg once a day, Synthroid 100 mcg once a day, Zebeta 5 mg once a day. Obtain TSH level as well as venous Doppler of lower extremities. Tay Chowdhury MD
[2017-09-04] MEDS: (Novolog) Insulin Aspart, Recombinant 100 u/ml 10 ml vial SC SCH ×4 (07:40→22:16)
--- NOTE | 2017-09-04 10:30 | VASCLAB ---
PROCEDURE: Lower Extremity Venous Duplex Exam. HISTORY: Leg swelling, r/o DVT PRIORS: None. TECHNIQUE: Bilateral common femoral, femoral, popliteal and posterior tibial, peroneal and great saphenous veins were evaluated. Flow was assessed with color Doppler, compressibility, assessment of phasic flow and augmentation response. Report prepared by Grabiel Herndon, CHAPO, RVT FINDINGS: RIGHT: 1. Common Femoral Vein: 1.1. Compressibility - Fully compressible: Thrombus - None : Flow - Phasic: Augmentation -Normal: Reflux - None. 2. Femoral Vein: 2.1. Compressibility - Fully compressible: Thrombus - None : Flow - Phasic: Augmentation -Normal: Reflux - None. 3. Popliteal Vein: 3.1. Compressibility - Fully compressible: Thrombus - None : Flow - Phasic: Augmentation -Normal: Reflux - None. 4. Posterior Tibial Vein: 4.1. Compressibility - Fully compressible: Thrombus - None: Flow - Phasic: Augmentation -Normal: Reflux - None. 5. Peroneal Vein: 5.1. Compressibility - Fully compressible: Thrombus - None: Flow - Phasic: Augmentation -Normal: Reflux - None. 6. Great Saphenous Vein: 6.1. Compressibility - Fully compressible: Thrombus - None: Flow - Phasic: Augmentation - Normal: Reflux - None. LEFT: 1. Common Femoral Vein: 1.1. Compressibility - Fully compressible: Thrombus - None: Flow - Phasic: Augmentation -Normal: Reflux - None. 2. Femoral Vein: 2.1. Compressibility - Fully compressible: Thrombus - None: Flow - Phasic: Augmentation -Normal: Reflux - None. 3. Popliteal Vein: 3.1. Compressibility - Fully compressible: Thrombus - None : Flow - Phasic: Augmentation -Normal: Reflux - Severe. 4. Posterior Tibial Vein: 4.1. Compressibility - Fully compressible: Thrombus - None: Flow - Phasic: Augmentation -Normal: Reflux - None. 5. Peroneal Vein: 5.1. Compressibility - Fully compressible: Thrombus - None: Flow - Phasic: Augmentation -Normal: Reflux - Severe. 6. Great Saphenous Vein: 6.1. Compressibility - Fully compressible: Thrombus - None: Flow - Phasic: Augmentation - Normal: Reflux - None. OTHER FINDINGS: Right: None significant. Left: Severe valvular incompetence of the left popliteal and peroneal veins. IMPRESSION: Right: No evidence of deep or superficial vein thrombosis of the right lower extremity. Normal valve function noted of the right side. Left: No evidence of deep or superficial vein thrombosis of the left lower extremity.
[2017-09-04] MEDS: Potassium Chloride 20 mEq ER Tab PO SCH (10:54)
[2017-09-04] MEDS: Megestrol Acetate 40 mg/ml Cup PO SCH ×2 (10:54→17:07)
[2017-09-04] MEDS: Enoxaparin 40 mg Syringe SC SCH ×2 (10:55→11:00)
[2017-09-05] MEDS: Albuterol-Ipratrop 3 mg / 0.5 (3 ml) UD IH SCH ×3 (00:26→15:49)
[2017-09-05] MEDS: Levothyroxine 100 MCG TAB PO SCH (06:41)
[2017-09-05 07:53] LABS: BASO % 0.7 % (0.0-2.0); EOS # 0.1 K/uL (0.0-0.7); EOS % 1.5 % (0.0-4.0); HEMATOCRIT 30.3 % (34.0-47.0); LYMPH # 1.3 K/uL (1.0-4.3); LYMPH % 27.7 % (20.0-40.0); MEAN CELL VOLUME 93.3 fL (81.0-99.0); MEAN CORPUSCULAR HEMOGLOBIN 32.3 pg (27.0-31.0); MEAN CORPUSCULAR HGB CONC 34.6 g/dL (33.0-37.0); MEAN PLATELET VOLUME 7.9 fL (7.2-11.7); MONO # 0.5 K/uL (0.0-0.8); MONO % 11.1 % (0.0-10.0); RED CELL DISTRIBUTION WIDTH 14.7 % (11.5-14.5); WHITE BLOOD COUNT 4.5 K/uL (4.8-10.8)
[2017-09-05] MEDS: (Novolog) Insulin Aspart, Recombinant 100 u/ml 10 ml vial SC SCH ×2 (07:57→12:30)
[2017-09-05 08:36] LABS: CALCIUM 9.3 mg/dl (8.6-10.4)
[2017-09-05] MEDS ORDERED: Potassium Chloride 10 mEq ER Tab PO SCH (10:00)
[2017-09-05] MEDS: Megestrol Acetate 40 mg/ml Cup PO SCH (10:24)
[2017-09-05] MEDS: Enoxaparin 40 mg Syringe SC SCH ×2 (10:36→10:47)
--- NOTE | 2017-09-05 11:05 | PN ---
DAILY PROGRESS NOTE SUBJECTIVE: The patient is seen today, 09/04/2017. She is not in any cardiopulmonary distress. OBJECTIVE: VITAL SIGNS: Blood pressure is 152/87, temperature 98.7, respiratory rate 20, and pulse 62. HEENT: Pupils are equal and reactive to light. Normal-appearing mucosa of the conjunctivae, oropharyngeal and nasal membrane mucosa. NECK: Supple. No JVD. No carotid bruits. No lymph node. No thyromegaly. CHEST AND LUNGS: Bilateral symmetrical expansion. Good air exchange. No rales. No rhonchi. CARDIOVASCULAR SYSTEM: PMI not localized. S1 and S2. No additional sounds. ABDOMEN: Normoactive bowel sounds. No tenderness. No organomegaly. No masses. EXTREMITIES: No cyanosis. No clubbing. No edema. PUBLIC WORKS DIRECTOR: Alert, awake, oriented x3. No neurological deficit could be appreciated. ASSESSMENT: 1. Exacerbation of congestive heart failure, acute diastolic on top of chronic diastolic heart failure. 2. Chronic obstructive lung disease. 3. Pulmonary hypertension. 4. Type 2 diabetes mellitus. 5. Hypothyroidism. PLAN: Continue current medications and diuretics, monitor electrolytes and follow recommendation of Cardiology. Mingo Peck MD
--- NOTE | 2017-09-05 11:16 | PN ---
DATE: SUBJECTIVE: The patient denies any chest pain. Her shortness of breath has improved. PHYSICAL EXAMINATION: VITAL SIGNS: Blood pressure 141/68, heart rate is 62, temperature 98.7 and respirations 20. HEENT: Normocephalic. CHEST: Bilateral rhonchi. HEART: S1 and S2 regular. ABDOMEN: Soft. EXTREMITIES: 1+ pitting edema. LABORATORY DATA: Today's blood sugar is at 114, 151 and 121. TSH level is elevated at 4.84. Venous Doppler of the lower extremity; no evidence of DVT. ASSESSMENT: 1. Chronic obstructive lung disease. 2. Secondary pulmonary hypertension and right-sided heart failure. 3. Mild anemia. 4. History of paroxysmal atrial fibrillation. 5. Hypertension and diabetes mellitus. RECOMMENDATIONS: Continue current hydralazine 25 mg b.i.d., amiodarone 200 mg once a day, Crestor 10 mg once a day, Glucophage at 500 mg twice a day, Klor-Con at 10 mEq once daily, intravenous twice a day, Plavix 75 mg once a day, Synthroid at 100 mcg once a day and Zebeta 5 mg once a day. Tay Chowdhury MD
--- NOTE | 2017-09-05 14:06 | PCM.HF ---
Heart Failure Core Measure - Heart Failure Ejection Fraction: 40 % or Greater (EF 70%) SEVERINO Inhibitor Prescribed: No Contraindication/Reason for not providing: BP controlled Beta-Yannick Prescribed: Bisoprolol Angiotensin II Receptor Yannick Prescribed: No Contraindication/Reason for not providing: EF >40% AnticoagulationTherapy for Atrial Fibrillation/Atrialflutter: No Contraindication/Reason for not providing: afib rate controlled Aldosterone Antagonist Prescribed: No Contraindication/Reason for not providing: EF >40% Hydralazine Nitrate Prescribed: Yes Implantable Cardioverter Defibrillator Therapy: Yes Cardiac Resynchronization Therapy Prescribed: No Contraindication/Reason for not providing: not indicated - Follow up Will be discharged to: Home Follow Up Date (must be within 7 days from discharge): 09/10/17 Follow Up Time: 09:00
--- NOTE | 2017-09-05 14:12 | CP.PCM.PN ---
Subjective - Date & Time of Evaluation Date of Evaluation: 09/05/17 Time of Evaluation: 14:12 - Subjective Subjective: Awake, alert, confused at times. No sob or chest pains, NAD. Objective - Vital Signs/Intake and Output Vital Signs (last 24 hours): Temp Pulse Resp BP Pulse Ox 98.3 F 65 18 116/67 96 09/05/17 09:47 09/05/17 09:47 09/05/17 09:47 09/05/17 10:28 09/05/17 09:47 - Medications Medications: Current Medications Albuterol/Ipratropium (Duoneb 3 Mg/0.5 Mg (3 Ml) Ud) 3 ml IH RQ8 [facility] Last Admin: 09/05/17 07:11 Dose: 3 ml Amiodarone HCl (Cordarone) 200 mg PO DAILY [facility] Last Admin: 09/05/17 10:24 Dose: 200 mg Bisoprolol Fumarate (Zebeta) 5 mg PO DAILY [facility] Last Admin: 09/05/17 12:31 Dose: Not Given Clopidogrel Bisulfate (Plavix) 75 mg PO DAILY [facility] Last Admin: 09/05/17 10:25 Dose: 75 mg Cyproheptadine HCl (Periactin) 4 mg PO HS [facility] Last Admin: 09/04/17 22:41 Dose: 4 mg Enoxaparin Sodium (Lovenox) 30 mg SC DAILY [facility] Famotidine (Pepcid) 20 mg PO DAILY [facility] Last Admin: 09/05/17 10:44 Dose: 20 mg Furosemide (Lasix) 20 mg IVP BID [facility] Last Admin: 09/05/17 10:28 Dose: 20 mg Hydralazine HCl (Apresoline) 25 mg PO BID [facility] Last Admin: 09/05/17 10:27 Dose: Not Given Insulin Aspart (Novolog) 0 unit SC [facility] PRN Reason: Protocol Last Admin: 09/05/17 12:30 Dose: Not Given Levothyroxine Sodium (Synthroid) 100 mcg PO DAILY@0630 [facility] Last Admin: 09/05/17 06:41 Dose: 100 mcg Megestrol Acetate (Megace) 200 mg PO BID [facility] Last Admin: 09/05/17 10:24 Dose: 200 mg Metformin HCl (Glucophage) 500 mg PO BID [facility] Last Admin: 09/05/17 10:32 Dose: 500 mg Montelukast Sodium (Singulair) 10 mg PO HS [facility] Last Admin: 09/04/17 22:41 Dose: 10 mg Nateglinide (Starlix) 60 mg PO ACTID [facility] Last Admin: 09/05/17 10:44 Dose: 60 mg Potassium Chloride (Klor-Con 10) 10 meq PO DAILY [facility] Last Admin: 09/05/17 10:29 Dose: 10 meq Rosuvastatin Calcium (Crestor) 10 mg PO HS [facility] Last Admin: 09/04/17 22:41 Dose: 10 mg - Labs Labs: 09/05/17 07:37 09/05/17 07:37 PT 11.3 SECONDS (9.7-12.2) 09/02/17 12:57 INR 1.0 09/02/17 12:57 APTT 27 SECONDS (21-34) 09/02/17 12:57 Assessment and Plan - Assessment and Plan (Free Text) Assessment: Patient is alert and responsive. No sob or chest pains. No edema, NAD. Seen and examined. D/W DR Pekc, advised to discharge home with family. Advised to follow up with PMD in 1 week. Continue present home meds.
[2017-09-05 15:40] VITALS: BP 109/68; PULSE 70; RESP 20; TEMP 97.9; O2SAT 95
[2017-09-05] MEDS ORDERED: Pneumococcal 23-Valent Vaccine SC ONE (16:04)
[2017-09-05] MEDS ORDERED: Influenza Vaccine 60 mcg/0.5 mL SYR (4YR UP) IM ONE (16:04)
--- NOTE | 2017-09-05 20:20 | PN ---
DATE: SUBJECTIVE: The patient's shortness of breath and leg swelling has improved. Patient is requesting to go home. PHYSICAL EXAMINATION VITAL SIGNS: Blood pressure 109/68, heart rate 70, temperature 97.9, respiration 20. HEENT: Normocephalic. CHEST: Minimal basilar rhonchi. HEART: S1 and S2 regular. ABDOMEN: Soft. EXTREMITIES: Trace leg edema. LABORATORY DATA: Today's BUN and creatinine are 28 and 1.3 respectively. The rest of the SMA-7 is within normal limits. Hemoglobin and hematocrit are 10.5 and 38.3, white count 4.3, platelet count 134,000. ASSESSMENT: 1. Exacerbation of chronic obstructive lung disease. 2. Pulmonary hypertension and right-sided heart failure. 3. Mild prerenal azotemia. 4. History of paroxysmal atrial fibrillation. 5. Status post dual chamber pacemaker placement. RECOMMENDATIONS: Continue current Zebeta at 5 mg once a day; Synthroid 100 mcg once a day; Plavix 75 mg once a day; change Lasix to 40 mg orally once a day, and continue Klor-Con at 10 mEq once a day; continue Crestor at 10 mg once a day, and amiodarone 200 mg once a day. Tay Chowdhury MD
--- NOTE | 2017-09-06 03:02 | DS ---
REASON FOR ADMISSION: This is an 89-year-old [place] female with history of multiple medical problems who was admitted for exacerbation of diastolic congestive heart failure. COURSE OF HOSPITALIZATION: The patient was admitted to telemetry floor. She had a Cardiology consult done by Dr. Chowdhury. The patient was given IV diuretics as well as her regular home medications were resumed. The patient did well and she was discharged home today in a stable condition after follow up with Cardiology and cleared her. FINAL DIAGNOSES: 1. Exacerbation of diastolic congestive heart failure. 2. Hypertension. 3. Hypothyroidism. 4. Coronary artery disease. 5. Type [address] [facility] MD [employer]
[2017-09-06] MEDS ORDERED: Enoxaparin 30 mg Syringe SC SCH (10:00)
[2017-09-06] MEDS ORDERED: Enoxaparin 40 mg Syringe SC SCH (10:00)
--- NOTE | 2017-09-07 21:50 | CARD ---
APPROVED REPORT EKG Measurement Heart [id number] <Conclusion> AV dual-paced rhythm with prolonged AV conduction Abnormal ECG
== END 2017-09-05 16:59 | disposition home health service (06) | DRG 292 ==
LOC: C.ER 12:35 → C.9E 15:54 → C.5S 17:45
PROVIDERS: ADMIT Internal Medicine; ATTEND Internal Medicine
DX: I11.0 Hypertensive heart disease with heart failure (principal); J44.1 Chronic obstructive pulmonary disease with (acute) exacerbation; I48.0 Paroxysmal atrial fibrillation; E11.9 Type 2 diabetes mellitus without complications; D64.9 Anemia, unspecified; J98.11 Atelectasis; I27.29 Other secondary pulmonary hypertension; I50.33 Acute on chronic diastolic (congestive) heart failure; E03.9 Hypothyroidism, unspecified; I25.10 Atherosclerotic heart disease of native coronary artery without angina pectoris; E78.00 Pure hypercholesterolemia, unspecified; M06.9 Rheumatoid arthritis, unspecified; Z79.02 Long term (current) use of antithrombotics/antiplatelets; Z79.899 Other long term (current) drug therapy; Z86.711 Personal history of pulmonary embolism; Z86.73 Personal history of transient ischemic attack (TIA), and cerebral infarction without residual deficits; Z87.01 Personal history of pneumonia (recurrent); Z95.0 Presence of cardiac pacemaker

== ENCOUNTER 2017-10-11 07:18 | Inpatient (IN) | payer MEDICARE, OTHER ==
[2017-10-11 07:19] VITALS: PULSE 1; BMI 26.4
[2017-10-11 08:22] LABS: VENOUS BLOOD GAS BASE EXCESS 1.9 mmol/L (0.0-2.0); VENOUS BLOOD GAS PCO2 50 mmHg (40-60); VENOUS BLOOD PH 7.36 (7.32-7.43)
[2017-10-11 08:34] LABS: BASO # 0.1 K/uL (0.0-0.2); BASO % 0.9 % (0.0-2.0); EOS # 0.1 K/uL (0.0-0.7); EOS % 1.9 % (0.0-4.0); LYMPH # 1.4 K/uL (1.0-4.3); LYMPH % 22.3 % (20.0-40.0); MEAN CORPUSCULAR HEMOGLOBIN 31.9 pg (27.0-31.0); MEAN CORPUSCULAR HGB CONC 33.9 g/dL (33.0-37.0); MEAN PLATELET VOLUME 8.3 fL (7.2-11.7); MONO # 0.4 K/uL (0.0-0.8); MONO % 6.6 % (0.0-10.0); NRBC % 0.2 % (0.0-2.0); RED CELL DISTRIBUTION WIDTH 13.8 % (11.5-14.5); WHITE BLOOD COUNT 6.2 K/uL (4.8-10.8)
--- NOTE | 2017-10-11 08:46 | RAD ---
PROCEDURE: CHEST RADIOGRAPH, 1 VIEW HISTORY: SOB COMPARISON: 09/02/2017 FINDINGS: LUNGS: Clear. PLEURA: No pneumothorax or pleural fluid seen. CARDIOVASCULAR: Permanent pacemaker. OSSEOUS STRUCTURES: No significant abnormalities. VISUALIZED UPPER ABDOMEN: Normal. OTHER FINDINGS: None. IMPRESSION: No active disease.
[2017-10-11 08:49] LABS: BILIRUBIN,TOTAL 0.8 mg/dL (0.2-1.3); CALCIUM 8.6 mg/dl (8.6-10.4); GFR AFRICAN-AMERICAN > 60; GLUCOSE,RANDOM 154 mg/dL (65-105); TOTAL PROTEIN 8.5 g/dL (6.3-8.3)
[2017-10-11 08:51] LABS: ALB/GLOB RATIO 0.9 (1.0-2.1); ALKALINE PHOSPHATASE 55 U/L (38-126); ALT/SGPT 23 U/L (9-52); AST/SGOT 23 U/L (14-36); BLOOD UREA NITROGEN 17 mg/dL (7-17); CARBON DIOXIDE 25 mmol/L (22-30); CHLORIDE 99 mmol/L (98-107); POTASSIUM 4.4 mmol/L (3.6-5.2); SODIUM 133 mmol/L (132-148)
--- NOTE | 2017-10-11 08:55 | C.PDOC ---
History Of Present Illness 89 y/o female with PMHx of HTN, CAD, COPD, CHF, DM and hypothyroidism presents to ED with complaints of sob for "several dyas" but worse this morning. Patient states pain is worse with exertion or laying flat with associated non productive cough. Patient denies fever, chest pain, palpitations, abdominal pain , nausea, vomiting, diarrhea or any other complaints at this time. Time Seen by Provider: 10/11/17 07:20 Chief Complaint (Nursing): Shortness Of Breath History Per: Patient History/Exam Limitations: no limitations Onset/Duration Of Symptoms: Days Current Symptoms Are (Timing): Still Present Initiating Event: Upper Respiratory Illness Exacerbating Factor(s): Exertion, Laying Flat Past Medical History Reviewed: Historical Data, Nursing Documentation, Vital Signs Vital Signs: Last Vital Signs Temp 97.0 F L 10/11/17 07:32 Pulse 65 10/11/17 09:33 Resp 20 10/11/17 09:12 BP 120/85 10/11/17 09:33 Pulse Ox 97 10/11/17 09:33 - Medical History PMH: Arthritis, Atrial Fibrillation, CAD, Cardia Arrhythmia (afib), CHF, COPD, CVA, Diabetes, HTN, Hypercholesterolemia, Hypothyroidism, Pneumonia, Pulmonary Embolism, Rheumatoid Arthritis Surgical History: Appendectomy, Pacemaker - [facility] Procedures ASSISTANCE WITH RESPIRATORY VENTILATION, <24 HRS, CPAP (07/20/17) EXCISION OF MIDDLE ESOPHAGUS, ENDO, DIAGN (04/30/17) EXCISION OF STOMACH, ENDO, DIAGN (04/30/17) EXERCISE TREATMENT OF MUSCULOSK WHOLE USING ASSIST EQUIPMENT (03/19/17) GAIT TRAINING/AMBULAT TREATMENT USING ASSIST EQUIPMENT (03/19/17) GROOMING/PERSONAL HYGIENE TREATMENT USING ASSIST EQUIPMENT (11/14/16) INSERTION OF INFUSION DEV INTO SUP VENA CAVA, PERC APPROACH (11/14/16) INSPECTION OF LARYNX, ENDO (04/30/17) INTRODUCE OF OTH ANTI-INFECT INTO PERIPH VEIN, PERC APPROACH (03/19/17) INTRODUCE OTH ANTI-INFECT IN CENTRAL VEIN, PERC (11/14/16) INTRODUCTION OF ANTI-INFLAM INTO RESP TRACT, VIA OPENING (03/19/17) REPAIR SCALP SKIN, EXTERNAL APPROACH (10/16/15) Family History: States: No Known Family Hx - Social History Hx Tobacco Use: No Hx Alcohol Use: No Hx Substance Use: No - Immunization History Hx Tetanus Toxoid Vaccination: No Hx Influenza Vaccination: No Hx Pneumococcal Vaccination: No Review Of Systems Except As Marked, All Systems Reviewed And Found Negative. Respiratory: Positive for: Cough, Shortness of Breath, SOB with Excertion Physical Exam - Physical Exam Appears: Non-toxic, No Acute Distress, Other (Comfortable) Skin: Normal Color, Warm, Dry, No Rash Head: Atraumatic, Normacephalic Eye(s): bilateral: Normal Inspection, PERRL, EOMI Oral Mucosa: Moist Neck: Supple Cardiovascular: Rhythm Regular Respiratory: No Accessory Muscle Use, Rales (Bilateral ), No Rhonchi, No Wheezing Gastrointestinal/Abdominal: Soft, No Tenderness, No Guarding, No Rebound Extremity: No Deformity, Other (+1 pitting edema bilaterally) Extremity: Bilateral: Normal ROM Pulses: Left Dorsalis Pedis: Normal, Right Dorsalis Pedis: Normal Neurological/Psych: Oriented x3, Normal Speech (Speaking in complete sentences) Gait: Steady ED Course And Treatment - Laboratory Results Result Diagrams: 10/11/17 08:23 10/11/17 08:23 ECG: Interpreted By Me, Viewed By Me ECG Rhythm: V Paced, Nonspecific Changes Interpretation Of ECG: Left axis deviation Rate From EC (BPM) O2 Sat by Pulse Oximetry: 99 (RA) Pulse Ox Interpretation: Normal - Other Rad CXR X-Ray: Viewed By Me, Read By Radiologist Interpretation: Accession No. : [id number]. Patient Name / ID : EMELY GUSTAFSON / [id number]. Exam Date : 10/11/2017 08:36:02 ( Approved ) . Study Comment : Sex / Age : F / 89Y. Creator : Roman Owens MD. Dictator : Roman Owens MD. Agronomy Technician : Advisory Internship : Roman Owens MD. Approver2 : Report Date : 10/11/2017 08:44:42. My Comment : . PROCEDURE: CHEST RADIOGRAPH, 1 VIEW. HISTORY: SOB. COMPARISON: 09/02/2017. FINDINGS: LUNGS: Clear. PLEURA: No pneumothorax or pleural fluid seen. CARDIOVASCULAR: Permanent pacemaker. OSSEOUS STRUCTURES: No significant abnormalities. VISUALIZED UPPER ABDOMEN: Normal. OTHER FINDINGS: None. IMPRESSION: No active disease. Progress Note: CXR, Blood work, ECG Disposition - Disposition Forms: [employer] [facility] (Wallisian) - Scribe Statement The provider has reviewed the documentation as recorded by the Еленаibashley Ramsey All medical record entries made by the Еленаibashley were at my direction and personally dictated by me. I have reviewed the chart and agree that the record accurately reflects my personal performance of the history, physical exam, medical decision making, and the department course for this patient. I have also personally directed, reviewed, and agree with the discharge instructions and disposition.
[2017-10-11] MEDS: Enoxaparin 30 mg Syringe SC SCH (12:30)
[2017-10-11 12:49] LABS: URINE BILIRUBIN NEGATIVE (NEGATIVE); URINE BLOOD NEGATIVE (NEGATIVE); URINE COLOR Colorless (YELLOW); URINE GLUCOSE (UA) NORMAL (Normal); URINE KETONE NEGATIVE (NEGATIVE); URINE LEUKOCYTE ESTERASE NEG Leu/uL (Negative); URINE PROTEIN NEGATIVE (NEGATIVE); URINE UROBILINOGEN NORMAL mg/dL (0.2-1.0)
[2017-10-11 13:04] LABS: RBC URINE 1 /hpf (0-3); WBC URINE 1 /hpf (0-5)
[2017-10-11 14:07] LABS: INR 0.9
[2017-10-11 16:03] VITALS: RESP 20
[2017-10-11] MEDS: Megestrol Acetate 40 mg/ml Cup PO SCH (18:46)
[2017-10-11] MEDS: Albuterol-Ipratrop 3 mg / 0.5 (3 ml) UD INH SCH (23:36)
[2017-10-12] MEDS ORDERED: Levothyroxine 100 MCG TAB PO SCH (06:30)
[2017-10-12] MEDS: (Novolog) Insulin Aspart, Recombinant 100 u/ml 10 ml vial SC SCH ×2 (07:46→12:22)
[2017-10-12] MEDS: Albuterol-Ipratrop 3 mg / 0.5 (3 ml) UD INH SCH (07:51)
[2017-10-12 08:22] VITALS: BP 145/88; PULSE 66; TEMP 98.4; O2SAT 98
[2017-10-12] MEDS: Enoxaparin 30 mg Syringe SC SCH (09:15)
[2017-10-12] MEDS: Megestrol Acetate 40 mg/ml Cup PO SCH (09:16)
[2017-10-12] MEDS ORDERED: Potassium Chloride 20 mEq ER Tab PO SCH (10:00)
[2017-10-12] MEDS ORDERED: Pantoprazole 40 mg EC Tab PO SCH (10:00)
--- NOTE | 2017-10-12 12:52 | CP.PCM.PN ---
Subjective - Date & Time of Evaluation Date of Evaluation: 10/12/17 Time of Evaluation: 12:49 - Subjective Subjective: PATIENT WS ADMITTED FOR CHF EXACERBATION; SITTING AT THE BEDSIDE EATING LUNCH; AAOX3 DENIES ANY SOB OR CHEST PAIN AND NO SIGN DISTRESS NOTED Objective - Vital Signs/Intake and Output Vital Signs (last 24 hours): Temp Pulse Resp BP Pulse Ox 98.4 F 66 20 145/88 98 10/12/17 08:21 10/12/17 08:21 10/12/17 08:21 10/12/17 09:17 10/12/17 08:21 Intake and Output: 10/12/17 10/12/17 06:59 18:59 Intake Total 300 Balance 300 - Medications Medications: Current Medications Albuterol/Ipratropium (Duoneb 3 Mg/0.5 Mg (3 Ml) Ud) 3 ml INH RQ8 [facility] Last Admin: 10/12/17 07:51 Dose: 3 ml Amiodarone HCl (Cordarone) 200 mg PO DAILY [facility] Last Admin: 10/12/17 09:16 Dose: 200 mg Bisoprolol Fumarate (Zebeta) 5 mg PO DAILY [facility] Last Admin: 10/12/17 09:14 Dose: 5 mg Clopidogrel Bisulfate (Plavix) 75 mg PO DAILY [facility] Last Admin: 10/12/17 09:15 Dose: 75 mg Cyproheptadine HCl (Periactin) 4 mg PO HS [facility] Last Admin: 10/11/17 21:55 Dose: 4 mg Enoxaparin Sodium (Lovenox) 30 mg SC DAILY [facility] Last Admin: 10/12/17 09:15 Dose: 30 mg Furosemide (Lasix) 20 mg IVP BID [facility] Last Admin: 10/12/17 09:17 Dose: 20 mg Hydralazine HCl (Apresoline) 25 mg PO BID [facility] Last Admin: 10/12/17 09:15 Dose: 25 mg Insulin Aspart (Novolog) 0 unit SC [facility] PRN Reason: Protocol Last Admin: 10/12/17 12:22 Dose: Not Given Levothyroxine Sodium (Synthroid) 100 mcg PO DAILY@0630 [facility] Last Admin: 10/12/17 05:49 Dose: 100 mcg Megestrol Acetate (Megace) 200 mg PO BID [facility] Last Admin: 10/12/17 09:16 Dose: 200 mg Metformin HCl (Glucophage) 500 mg PO BID [facility] Last Admin: 10/12/17 09:16 Dose: 500 mg Montelukast Sodium (Singulair) 10 mg PO HS [facility] Last Admin: 10/11/17 21:55 Dose: 10 mg Nateglinide (Starlix) 60 mg PO ACTID [facility] Last Admin: 10/12/17 12:20 Dose: Not Given Pantoprazole Sodium (Protonix Ec Tab) 40 mg PO DAILY [facility] Last Admin: 10/12/17 09:15 Dose: 40 mg Potassium Chloride (K-Dur 20 Meq Er Tab) 20 meq PO DAILY [facility] Last Admin: 10/12/17 09:20 Dose: 20 meq Rosuvastatin Calcium (Crestor) 10 mg PO HS [facility] Last Admin: 10/11/17 21:54 Dose: 10 mg - Labs Labs: 10/11/17 08:23 10/11/17 08:23 PT 10.5 SECONDS (9.7-12.2) 10/11/17 13:52 INR 0.9 10/11/17 13:52 APTT 23 SECONDS (21-34) 10/11/17 13:52 - Head Exam Head Exam: NORMOCEPHALIC - Eye Exam Pupil Exam: NORMAL ACCOMODATION - Respiratory Exam Respiratory Exam: Clear to Ausculation Bilateral - Cardiovascular Exam Cardiovascular Exam: +S1, +S2 Assessment and Plan - Assessment and Plan (Free Text) Assessment: A/P PATIENT WAS SEEN AND EXAMINED AT THE BEDSIDE LUNG SOUND CLEAR BILATERAL BLOOD SUGAR WAS LOW THIS MORNING BECAUSE PATIENT REFUSING TO EAT HOSPITAL FOOD LASTEST BLOOD SUGAR LEVEL AFTER EATING A SNACK WAS [address] REDDY AND CLEAR THE PATIENT FOLLOW UP WITH DR REDDY IN E WEEK AT HIS OFFICE PER YOUR APPOINTMENT ON SUNDAY (10/16/2017) ---CALL DR MERRILL' OFFICE TO CONFIRM CONTINUE YOUR MEDICATION PER MED RECS CALL DR REDDY OR GO TO EMERGENCY ROOM IF SYMPTOMS RETURN OR WORSENING DISCUSS WITH PATIENT WHO AGREE AND VERBALIZED UNDERSTANDING OIL [employer] OPERATOR PLACE A CALL TO PATIENT'S DAUGHTER WHO AGREE AND STATED THAT SHE WILL PICK HER UP LATER
--- NOTE | 2017-10-12 13:40 | PCM.HF ---
Heart Failure Core Measure - Heart Failure Ejection Fraction: 40 % or Greater Contraindication/Reason for not providing: EF IS GREATER THAN 40 Beta-Yannick Prescribed: Bisoprolol Angiotensin II Receptor Yannick Prescribed: No Contraindication/Reason for not providing: EF IS GREATER THAN 40 AnticoagulationTherapy for Atrial Fibrillation/Atrialflutter: No Contraindication/Reason for not providing: ON AMIODODARONE Aldosterone Antagonist Prescribed: No Contraindication/Reason for not providing: EF IS GREATER THAN 40 Hydralazine Nitrate Prescribed: Yes Implantable Cardioverter Defibrillator Therapy: Yes Cardiac Resynchronization Therapy Prescribed: Yes - Follow up Will be discharged to: Home Follow Up Date (must be within 7 days from discharge): 10/17/17 Follow Up Time: 09:00
--- NOTE | 2017-10-13 10:26 | CARD ---
APPROVED REPORT EKG Measurement Heart [id number] <Conclusion> AV dual-paced rhythm with prolonged AV conduction Abnormal ECG
--- NOTE | 2017-10-13 11:04 | DS ---
REASON FOR ADMISSION: This is an 89-year-old [place] female with history of multiple medical problems, who was admitted for shortness of breath secondary to CHF. HOSPITAL COURSE: The patient was admitted to telemetry floor and after she was given IV antibiotics in the emergency room, the patient felt much better. The patient was monitored overnight and she continued to improve, and she was totally asymptomatic and discharged home to continue the diuretics at home and to continue her preadmission medications. FINAL DIAGNOSES: 1. Pulmonary hypertension with diastolic congestive heart failure. 2. Type 2 diabetes mellitus. 3. Hypothyroidism. 4. Hypertension. PLAN: Continue diuretics and preadmission medications and follow up with primary care physician and engineering consultant as an outpatient. [facility] MD [employer]
--- NOTE | 2017-10-15 09:48 | HP ---
HISTORY OF PRESENT ILLNESS: The patient is an 89-year-old [place] female with history of multiple medical problems including pulmonary hypertension with type 2 diabetes mellitus and hypothyroidism. The patient was brought to emergency room for progressive shortness of breath on exertion as well as at rest. The patient was evaluated in emergency room and she was found to be in heart failure with elevated proBNP. The patient was given Lasix and admitted to telemetry floor for further management. The patient is status post pacemaker placement. The patient is not compliant with her medications and she lives by herself. REVIEW OF SYSTEMS: Other review of systems is negative. ALLERGIES: THERE IS ALLERGY TO PENICILLIN. HOME MEDICATIONS: As per MAR. SOCIAL HISTORY: No history of smoking, EtOH or substance abuse. FAMILY HISTORY: Noncontributory. PHYSICAL EXAMINATION: GENERAL: The patient was comfortable at the time of this examination after she was given Lasix intravenously in emergency room. VITAL SIGNS: Blood pressure was 116/73, temperature 98.1, respiratory rate 20, and pulse 59. HEENT: Pupils equal and reactive to light. Normal-appearing mucosa, conjunctivae, oropharynx, and nasal membrane mucosa. NECK: Supple. No JVD. No carotid bruit. No lymph node. No thyromegaly. CHEST/LUNGS: Bilateral symmetrical expansion. Good air exchange. No rales and no rhonchi. CARDIOVASCULAR SYSTEM: PMI not localized. S1 and S2. No additional sounds. ABDOMEN: Normoactive bowel sounds. No tenderness. No organomegaly. No masses. EXTREMITIES: No cyanosis, no clubbing, no edema. MAINTENANCE FITTER: Alert, awake, oriented x2. No neurological deficits could be appreciated. ASSESSMENT: 1. Exacerbation of diastolic congestive heart failure with severe pulmonary hypertension. 2. Interstitial/chronic obstructive lung disease. 3. Hypertension. 4. Hypothyroidism. 5. Type 2 diabetes mellitus. PLAN: Continue Lasix IV and observe the patient on telemetry. Resume the patient's home medications. Mingo Peck MD
== END 2017-10-12 13:47 | disposition home or self-care (01) | DRG 293 ==
LOC: C.ER 07:18 → C.9E 10:57 → C.6T 11:49 → C.7T 10-12 08:56 → C.6T 10-12 09:04 → C.7T 10-12 10:02 → C.6T 10-12 10:05
PROVIDERS: ADMIT Internal Medicine; ATTEND Internal Medicine
DX: I11.0 Hypertensive heart disease with heart failure (principal); I27.20 Pulmonary hypertension, unspecified; I50.33 Acute on chronic diastolic (congestive) heart failure; I48.91 Unspecified atrial fibrillation; I25.10 Atherosclerotic heart disease of native coronary artery without angina pectoris; E78.00 Pure hypercholesterolemia, unspecified; E11.9 Type 2 diabetes mellitus without complications; E03.9 Hypothyroidism, unspecified; J44.9 Chronic obstructive pulmonary disease, unspecified; M06.9 Rheumatoid arthritis, unspecified; Z86.711 Personal history of pulmonary embolism; Z86.73 Personal history of transient ischemic attack (TIA), and cerebral infarction without residual deficits; Z95.0 Presence of cardiac pacemaker